=== PATIENT | male | born 1940 | race Caucasian/White ===

== ENCOUNTER → 2017-10-02 10:34 | Outpatient (CLI) | payer MEDICARE, SELFPAY ==
[2017-10-02 13:10] LABS: Absolute Lymphocyte Count 2.16 X10^3/ul (0.83-4.51); Absolute Neutrophil Count 5.1 X10^3/uL (2.0-7.7); Basophil# 0.04 X10^3/uL; Basophil% 0.5 % (0-1); Eosinophil# 0.17 X10^3/uL; Eosinophils% 2.1 % (0-5); Hematocrit 43.4 % (40-54); Hemoglobin 14.4 g/dl (13.0-16.5); Lymphocyte # 2.16 X10^3/ul (4.0); Lymphocyte % 26.2 % (19-41); Mean Corp Hgb Conc 33.2 g/gl (32-36); Mean Corpuscular Volume 87.3 fL (80-94); Mean Platelet Vol. 10.9 fl (6.2-12.0); Monocyte# 0.73 X10^3/uL; Monocyte% 8.9 % (0-10); Neutrophil # 5.07 X10^3/uL (2.7-7.7); Neutrophil % 61.6 % (47-70); Platelet Count 242 K/mm3 (150-450); RBC Distribution Width SD 48.5 fl (35.1-43.9); Red Blood Count 4.97 M/mm3 (4.6-6.2); White Blood Count 8.2 K/mm3 (4.4-11.0)
[2017-10-02 13:11] LABS: POSITIVE COUNT NO; POSITIVE DIFFERENTIAL NO; POSITIVE MORPHOLOGY NO
[2017-10-02 13:30] LABS: ALB/GLOB Ratio 0.8 RATIO (0.9-2.4); AST(SGOT) 22 U/L (15-37); Alanine Aminotransfer ALT/SGPT 22 U/L (16-61); Albumin, Serum 3.3 g/dL (3.2-5.0); Alkaline Phosphatase 87 U/L (45-117); Anion Gap 8 (5-15); BUN 14 mg/dL (7-18); BUN/Creat Ratio 15.4 RATIO (10-20); Calcium,Total 9.1 mg/dL (8.5-10.1); Chloride 105 mmol/L (98-107); Creatinine, Serum 0.91 mg/dL (0.70-1.30); EST Glomerular Filtration Rate 86 mL/min (>60); Est Glom Filt Rate - Afr Amer 104 mL/min (>60); Glucose 82 mg/dL (74-106); PSA,Total- Diagnostic 0.16 ng/mL (0.0-4.0); Potassium 4.4 mmol/L (3.5-5.1); Protein, Total 7.3 g/dL (6.4-8.2); Sodium Level 138 mmol/L (136-145); Thyroid Stim Hormone (TSH) 3.75 uIU/mL (0.358-3.74)
[2017-10-02 13:32] LABS: Vitamin D,25 Hydroxy 15.1 ng/mL (29.95-100.01)
[2017-10-03 15:57] LABS: Hep C Antibodies <0.1 s/co ratio (0.0-0.9)
== END ==
PROVIDERS: Family Provider Family Medicine Geriatric Medicine; PCP Family Medicine Geriatric Medicine; Visit Provider Urology
DX: E55.9 Vitamin D deficiency, unspecified (principal); R53.83 Other fatigue; Z85.46 Personal history of malignant neoplasm of prostate
CPT/HCPCS: 36415; 80053; 82306; 84153; 84443; 85025; 86803

== ENCOUNTER → 2017-11-19 14:10 | Outpatient (CLI) | payer MEDICARE, SELFPAY ==
[2017-11-19 17:27] LABS: Thyroid Stim Hormone (TSH) 1.78 uIU/mL (0.358-3.74)
== END ==
PROVIDERS: Family Provider Family Medicine Geriatric Medicine; PCP Family Medicine Geriatric Medicine; Visit Provider Family Medicine Geriatric Medicine
DX: E03.9 Hypothyroidism, unspecified (principal)
CPT/HCPCS: 36415; 84443

== ENCOUNTER → 2018-01-29 06:26 | Outpatient (CLI) | payer MEDICARE, SELFPAY | PROVIDERS: Family Provider Family Medicine Geriatric Medicine; PCP Family Medicine Geriatric Medicine; Visit Provider Family Medicine Geriatric Medicine | DX: M79.89 Other specified soft tissue disorders (principal) | CPT/HCPCS: 73218 ==

== ENCOUNTER → 2018-04-01 13:15 | Outpatient (CLI) | payer MEDICARE, SELFPAY ==
[2018-04-01 15:04] LABS: Absolute Lymphocyte Count 2.26 X10^3/ul (0.83-4.51); Absolute Neutrophil Count 3.1 X10^3/uL (2.0-7.7); Basophil# 0.02 X10^3/uL; Basophil% 0.3 % (0-1); Eosinophil# 0.15 X10^3/uL; Eosinophils% 2.4 % (0-5); Hematocrit 45.2 % (40-54); Hemoglobin 14.3 g/dl (13.0-16.5); Lymphocyte # 2.26 X10^3/ul (4.0); Lymphocyte % 36.2 % (19-41); Mean Corp Hgb Conc 31.6 g/gl (32-36); Mean Corpuscular Hgb 27.8 pg (27.0-32.0); Mean Corpuscular Volume 87.9 fL (80-94); Mean Platelet Vol. 10.5 fl (6.2-12.0); Monocyte# 0.68 X10^3/uL; Monocyte% 10.9 % (0-10); Neutrophil # 3.11 X10^3/uL (2.7-7.7); Neutrophil % 49.7 % (47-70); POSITIVE COUNT NO; POSITIVE DIFFERENTIAL NO; POSITIVE MORPHOLOGY NO; Platelet Count 231 K/mm3 (150-450); RBC Distribution Width CV 14.7 % (11.6-14.6); RBC Distribution Width SD 47.4 fl (35.1-43.9); Red Blood Count 5.14 M/mm3 (4.6-6.2); White Blood Count 6.3 K/mm3 (4.4-11.0)
[2018-04-01 15:19] LABS: Vitamin D,25 Hydroxy 45.6 ng/mL (29.95-100.01)
[2018-04-01 15:21] LABS: ALB/GLOB Ratio 0.8 RATIO (0.9-2.4); AST(SGOT) 18 U/L (15-37); Alanine Aminotransfer ALT/SGPT 20 U/L (16-61); Albumin, Serum 3.4 g/dL (3.2-5.0); Alkaline Phosphatase 77 U/L (45-117); Anion Gap 8 (5-15); BUN 14 mg/dL (7-18); BUN/Creat Ratio 14.4 RATIO (10-20); Calcium,Total 8.7 mg/dL (8.5-10.1); Chloride 105 mmol/L (98-107); Creatinine, Serum 0.97 mg/dL (0.70-1.30); EST Glomerular Filtration Rate 80 mL/min (>60); Est Glom Filt Rate - Afr Amer 97 mL/min (>60); Glucose 93 mg/dL (74-106); Potassium 4.4 mmol/L (3.5-5.1); Protein, Total 7.4 g/dL (6.4-8.2); Sodium Level 140 mmol/L (136-145); Thyroid Stim Hormone (TSH) 2.62 uIU/mL (0.358-3.74)
== END ==
PROVIDERS: Family Provider Family Medicine Geriatric Medicine; PCP Family Medicine Geriatric Medicine; Visit Provider Family Medicine Geriatric Medicine
DX: E55.9 Vitamin D deficiency, unspecified (principal); R53.83 Other fatigue
CPT/HCPCS: 36415; 80053; 82306; 84443; 85025

== ENCOUNTER → 2018-04-16 15:24 | Outpatient (CLI) | payer MEDICARE, SELFPAY ==
--- NOTE | 2018-04-16 15:32 | RAD_ITS ---
STUDY: X-RAY - LUMBAR SPINE REASON FOR EXAM: Male, 78 years old. Low back pain. TECHNIQUE: 5 view(s) of the lumbar spine were obtained. COMPARISON: None FINDINGS: There is an exaggerated lumbar lordosis. There is mild curvature of lumbar spine with convexity towards the right. There is a normal alignment of the vertebrae. There is multilevel endplate spondylosis of the lumbar vertebrae. There is multi-level degenerative disc disease with multi-level disc space narrowing. There is moderately severe degenerative arthropathy of the facet joints. There is mild anterolisthesis of L4-5. There is no demonstrated fracture. There is atherosclerotic calcification of the abdominal aorta without a demonstrated aneurysm. RAD/L/S Spine Min 4 Views IMPRESSION: 1. 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 2. Mild anterolisthesis at L4-5. Electronically Signed: Viri Toney MD at 7:26 EST , Service support ,
== END ==
PROVIDERS: Family Provider Family Medicine Geriatric Medicine; PCP Family Medicine Geriatric Medicine; Referring Provider Nurse Practitioner Family; Visit Provider Nurse Practitioner Family
DX: M54.9 Dorsalgia, unspecified (principal)
CPT/HCPCS: 72110

== ENCOUNTER → 2018-05-08 15:35 | Outpatient (CLI) | payer MEDICARE, SELFPAY ==
--- NOTE | 2018-05-08 15:45 | RAD_ITS ---
STUDY: X-RAY - LEFT HAND REASON FOR EXAM: Male, 78 years old. Swelling TECHNIQUE: 3 view(s) of the hand. COMPARISON: None. FINDINGS: Normal radiocarpal articulation. Normal distal radioulnar joint. Normal visualized carpal bones. Normal carpal articulations Degenerative changes at the carpometacarpal articulation of the thumb. Normal second through fifth carpometacarpal joints. Normal metacarpi. Normal metacarpophalangeal joint of the thumb. Normal interphalangeal joint of the thumb. Normal proximal and distal phalanges of the thumb. Normal metacarpophalangeal joints of the second through fifth fingers. Degenerative spurring at the distal interphalangeal joints of the second through fifth fingers. No acute bony injury of the phalanges of the second through fifth fingers. Diffuse soft tissue swelling of the hand and digits. RAD/Hand Min 3 Views IMPRESSION: Diffuse soft tissue swelling of the hand. Degenerative changes. Electronically Signed: Mayco Rodriguez DO at 8:34 EST Tel [phone], Service support ,
--- NOTE | 2018-05-08 15:50 | RAD_ITS ---
STUDY: X-RAY - LEFT WRIST REASON FOR EXAM: Male, 78 years old. Wrist pain and swelling TECHNIQUE: 3 view(s) of the wrist were obtained. COMPARISON: None. FINDINGS: Normal visualized distal radius and ulna. Normal radiocarpal articulation. Normal distal radioulnar articulation. Normal carpal bones. Normal carpal articulations. There is degenerative arthrosis of the carpometacarpal articulation of the thumb. Normal second through fifth carpometacarpal articulations. Normal visualized metacarpal bones. Diffuse dorsal soft tissue swelling RAD/Wrist min 3 Views IMPRESSION: Degenerative changes with swelling. No fracture Electronically Signed: Jagdeep Robles DO at 9:22 EST Tel , Service support ,
[2018-05-08 17:39] LABS: Absolute Lymphocyte Count 1.81 X10^3/ul (0.83-4.51); Absolute Neutrophil Count 5.5 X10^3/uL (2.0-7.7); Basophil# 0.02 X10^3/uL; Basophil% 0.2 % (0-1); Eosinophil# 0.12 X10^3/uL; Eosinophils% 1.4 % (0-5); Hematocrit 43.8 % (40-54); Hemoglobin 14.2 g/dl (13.0-16.5); Lymphocyte # 1.81 X10^3/ul (4.0); Lymphocyte % 21.2 % (19-41); Mean Corp Hgb Conc 32.4 g/gl (32-36); Mean Corpuscular Hgb 27.8 pg (27.0-32.0); Mean Corpuscular Volume 85.7 fL (80-94); Mean Platelet Vol. 10.5 fl (6.2-12.0); Monocyte# 1.11 X10^3/uL; Neutrophil # 5.46 X10^3/uL (2.7-7.7); Platelet Count 219 K/mm3 (150-450); RBC Distribution Width CV 14.8 % (11.6-14.6); RBC Distribution Width SD 46.3 fl (35.1-43.9); Red Blood Count 5.11 M/mm3 (4.6-6.2); White Blood Count 8.5 K/mm3 (4.4-11.0)
[2018-05-08 17:43] LABS: POSITIVE COUNT NO; POSITIVE DIFFERENTIAL NO; POSITIVE MORPHOLOGY NO
[2018-05-08 17:53] LABS: Erythrocyte Sedimentation Rate 24 mm/hr (0-20)
[2018-05-08 18:00] LABS: Anion Gap 9 (5-15); BUN 15 mg/dL (7-18); BUN/Creat Ratio 15.3 RATIO (10-20); Calcium,Total 8.8 mg/dL (8.5-10.1); Chloride 103 mmol/L (98-107); Creatinine, Serum 0.98 mg/dL (0.70-1.30); EST Glomerular Filtration Rate 79 mL/min (>60); Est Glom Filt Rate - Afr Amer 96 mL/min (>60); Glucose 81 mg/dL (74-106); Potassium 4.3 mmol/L (3.5-5.1); Sodium Level 138 mmol/L (136-145); Uric Acid 6.1 mg/dL (3.5-7.2)
--- OUTSIDE RECORDS SUMMARY | 2018-07-03 21:59 | XMS RPT_ITS ---
:1940 Author Organization OHIP Care Team Providers Name Role Phone CARLYLE MCCANN DO Admitting Unavailable CARLYLE MCCANN DO Attending Unavailable SANDY ROACH MD Referring Unavailable CARLYLE MCCANN DO Primary Care Unavailable SANDY ROACH MD Consulting Unavailable PROVIDER, UNKNOWN Consulting Unavailable PROVIDER, UNKNOWN Consulting Unavailable Pollo Hall Attending Unavailable Pollo Hall Referring Unavailable Aaron, Sandy Chi Primary Care Unavailable Aaron, Sandy Chi Attending Unavailable Aaron, Sandy Chi Primary Care Unavailable Aaron, Sandy Chi Attending Unavailable Aaron, Sandy Chi Primary Care Unavailable Aaron, Sandy Chi Attending Unavailable Aaron, Sandy Chi Referring Unavailable Aaron, Sandy Chi Primary Care Unavailable Aaron, Sandy Chi Attending Unavailable Aaron, Sandy Chi Primary Care Unavailable Ibeth Sr PRINCIPLE INDUSTRIAL HYGIENIST-C Attending Unavailable Ibeth Sr PRINCIPLE INDUSTRIAL HYGIENIST-C Referring Unavailable Aaron, Sandy Chi Primary Care Unavailable Aaron, Sandy Chi Attending Unavailable Aaron, Sandy Chi Primary Care Unavailable Aaron, Sandy Chi Referring Unavailable PROBLEMS PROBLEMS DATE TYPE CONDITION / CODE ATTENDING STATUS SOURCE 05/08/2018 Unknown R79.9 - Abnormal Aaron, Sandy Chi Active [place] [facility], Hospital unspecified / Repository R79.9(ICD-10) 04/16/2018 Unknown M54.9 - Prebish, Ibeth Active [facility], PRINCIPLE INDUSTRIAL HYGIENIST-C Community unspecified / Hospital M54.9(ICD-10) Repository 10/02/2017 Unknown Z85.46 - Personal IsabelPollo 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 Swelling TECHNIQUE: 3 view(s) of the hand. COMPARISON: None. FINDINGS: Normal radiocarpal articulation. Normal distal radioulnar joint. Normal visualized carpal bones. Normal carpal articulations Degenerative changes at the carpometacarpal articulation of the thumb. Normal second through fifth carpometacarpal joints. Normal metacarpi. Normal metacarpophalangeal joint of the thumb. Normal interphalangeal joint of the thumb. Normal proximal and distal phalanges of the thumb. Normal metacarpophalangeal joints of the second through fifth fingers. Degenerative spurring at the distal interphalangeal joints of the second through fifth fingers. No acute bony injury of the phalanges of the second through fifth fingers. Diffuse soft tissue swelling of the hand and digits. RAD/Hand Min 3 Views IMPRESSION: Diffuse soft tissue swelling of the hand. Degenerative changes. Electronically Signed: Mayco Rodriguez DO at 8:34 EST Tel [phone], Service support , CC: Sandy Roach MD Front Desk Supervisor: Signed WRIST MIN 3 VIEWS Observed: 05/08/2018 Status: F Source: [place] 3:45 PM [facility] REPOSITORY [facility] Imaging Services [address] [place] [address] Wrist min 3 Views MR#: [id number] Acct: [id number] Name: TYLER PELAEZ Rep #: [id number] : 1940 [facility] From: Jagdeep Robles DO PCP: Sandy Roach MD, Chi Status: REG CLI Study: Wrist min 3 Views Date of Exam: 05/08/18 Exam# [id number] Ordering Dr: Sandy Roach MD STUDY: X-RAY - LEFT WRIST REASON FOR EXAM: Male, 78 years old. Wrist pain and swelling TECHNIQUE: 3 view(s) of the wrist were obtained. COMPARISON: None. FINDINGS: Normal visualized distal radius and ulna. Normal radiocarpal articulation. Normal distal radioulnar articulation. Normal carpal bones. Normal carpal articulations. There is degenerative arthrosis of the carpometacarpal articulation of the thumb. Normal second through fifth carpometacarpal articulations. Normal visualized metacarpal bones. Diffuse dorsal soft tissue swelling RAD/Wrist min 3 Views IMPRESSION: Degenerative changes with swelling. No fracture Electronically Signed: Jagdeep Robles DO at 9:22 EST Tel , Service support , CC: Sandy Roach MD Front Desk Supervisor: Signed CBC W/DIFF, AUTOMATED Collected: 05/08/2018 Status: F Source: [place] 3:36 PM [facility] REPOSITORY TYPE CODE TESTS RESULT OUT OF RANGE REFERENCE UNITS LAB L100.1000 4.4-11.0 K/mm3 Normal WBC 8.5 LAB L100.1200 4.6-6.2 M/mm3 Normal RBC 5.11 LAB L100.1300 13.0-16.5 g/dl Normal HGB 14.2 LAB L100.1400 40-54 % Normal HCT 43.8 LAB L100.1500 80-94 fL Normal MCV 85.7 LAB L100.1600 27.0-32.0 pg Normal MCH 27.8 LAB L100.1700 32-36 g/gl Normal MCHC 32.4 LAB L100.1810 11.6-14.6 % High RDW CV 14.8 LAB L100.1820 35.1-43.9 fl High RDW SD 46.3 LAB L100.1900 150-450 K/mm3 Normal PLT 219 LAB L100.2000 6.2-12.0 fl Normal MPV 10.5 LAB L100.2100 47-70 % Normal NEUT% 64.0 LAB L100.2200 19-41 % Normal LY% 21.2 LAB L100.2300 0-10 % High MONO% 13.0 LAB L100.2400 0-5 % Normal EO% 1.4 LAB L100.2500 0-1 % Normal BASO% 0.2 LAB L100.2550 0.0-0.9 % Normal IM GRAN % 0.200 Result Comment: IG% - Immature Granulocytes (promyelocytes, myelocytes and metamyelocytes) > 1% indicates that a LEFT SHIFT is Present. LAB L100.2620 2.0-7.7 X10 3/uL Normal Absolute Neut 5.5 LAB L100.2720 0.83-4.51 X10 3/ul Normal Absolute Lymph 1.81 Performed By: #### L100.0100, L101.9900 #### [facility] [address] [place], [address] ERYTHROCYTE SED RATE Collected: 05/08/2018 Status: F Source: [place] 3:36 PM [facility] REPOSITORY TYPE CODE TESTS RESULT OUT OF RANGE REFERENCE UNITS LAB L102.0000 0-20 mm/hr High SED RATE 24 Performed By: #### L100.0100, L101.9900 #### [facility] [address] [place], [address] BASIC METABOLIC Collected: 05/08/2018 Status: F Source: [place] PROFILE (BMP) 3:36 PM [facility] REPOSITORY TYPE CODE TESTS RESULT OUT OF RANGE REFERENCE UNITS LAB L501.0100 74-106 mg/dL Normal GLU 81 Result Comment: Please note revised GLUCOSE reference range effective 2017. LAB L501.1000 7-18 mg/dL Normal BUN 15 LAB L501.1100 0.70-1.30 mg/dL Normal CREAT,SERUM 0.98 Result Comment: The validity of the calculated GFR AND GFRAA in patients over 70 years has not been determined. Clinical correlation is essential. LAB L501.1110 >60 mL/min Normal EST GFR 79 Result Comment: Non- GFR Calc LAB L501.1115 >60 mL/min Normal EST GFR - AA 96 Result Comment: GFR Calc LAB L501.1300 10-20 RATIO Normal BUN/CRE 15.3 LAB L501.2200 8.5-10.1 mg/dL CA Normal 8.8 LAB L501.5300 136-145 mmol/L NA Normal 138 LAB L501.5600 3.5-5.1 mmol/L K Normal 4.3 LAB L501.5900 98-107 mmol/L CL Normal 103 LAB L501.6100 21.0-32.0 mmol/L Normal CO2 26.0 LAB L501.6200 5-15 Normal GAP 9 Performed By: #### L500.2500, L501.1400, L501.6710 #### [facility] [address] [place], [address] URIC ACID Collected: 05/08/2018 Status: F Source: [place] 3:36 PM [facility] REPOSITORY TYPE CODE TESTS RESULT OUT OF RANGE REFERENCE UNITS LAB L501.1400 3.5-7.2 mg/dL Normal URIC 6.1 Result Comment: The drugs N-Acetylcysteine and Metamizole may falsely depress this assay. Performed By: #### L500.2500, L501.1400, L501.6710 #### [facility] [address] [facility] [place], [address] CRP Collected: 05/08/2018 Status: F Source: [place] 3:36 PM [facility] REPOSITORY TYPE CODE TESTS RESULT OUT OF RANGE REFERENCE UNITS LAB L501.6710 0.0-3.0 mg/L High 81.50 C-REACTIVE PROT Result Comment: C-Reactive Protein (CRP) provides useful information for the diagnosis, therapy and monitoring of inflammatory processes and associated diseases. For the evaluation of Relative Risk for Cardiovascular Disease, a High Sensitivity CRP (HSCRP) should be ordered. Performed By: #### L500.2500, L501.1400, L501.6710 #### [facility] [address] [facility] [place], [address] L/S SPINE MIN 4 Observed: 04/16/2018 Status: F Source: [place] VIEWS 3:30 PM [facility] REPOSITORY [facility] Imaging Services [address] [place] [address] L/S Spine Min 4 Views MR#: [id number] Acct: [id number] Name: TYLER PELAEZ Rep #: [id number] : 1940 M 78 From: Viri Toney MD PCP: Aaron BARNETT,Sandy Chi Status: REG CLI Study: L/S Spine Min 4 Views Date of Exam: 04/16/18 Exam# [id number] Ordering Dr: Ibeth Sr STUDY: X-RAY - LUMBAR SPINE REASON FOR EXAM: Male, 78 years old. Low back pain. TECHNIQUE: 5 view(s) of the lumbar spine were obtained. COMPARISON: None FINDINGS: There is an exaggerated lumbar lordosis. There is mild curvature of lumbar spine with convexity towards the right. There is a normal alignment of the vertebrae. There is multilevel endplate spondylosis of the lumbar vertebrae. There is multi-level degenerative disc disease with multi-level disc space narrowing. There is moderately severe degenerative arthropathy of the facet joints. There is mild anterolisthesis of L4-5. There is no demonstrated fracture. There is atherosclerotic calcification of the abdominal aorta without a demonstrated aneurysm. RAD/L/S Spine Min 4 Views IMPRESSION: 1. 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 2. Mild anterolisthesis at L4-5. Electronically Signed: Viri Toney MD at 7:26 EST , Service support , CC: Ibeth Sr; Sandy Roach MD Front Desk Supervisor: Signed CBC W/DIFF, AUTOMATED Collected: 04/01/2018 Status: F Source: [place] 1:25 PM [facility] REPOSITORY TYPE CODE TESTS RESULT OUT OF RANGE REFERENCE UNITS LAB L100.1000 4.4-11.0 K/mm3 Normal WBC 6.3 LAB L100.1200 4.6-6.2 M/mm3 Normal RBC 5.14 LAB L100.1300 13.0-16.5 g/dl Normal HGB 14.3 LAB L100.1400 40-54 % Normal HCT 45.2 LAB L100.1500 80-94 fL Normal MCV 87.9 LAB L100.1600 27.0-32.0 pg Normal MCH 27.8 LAB L100.1700 32-36 g/gl Low MCHC 31.6 LAB L100.1810 11.6-14.6 % High RDW CV 14.7 LAB L100.1820 35.1-43.9 fl High RDW SD 47.4 LAB L100.1900 150-450 K/mm3 Normal PLT 231 LAB L100.2000 6.2-12.0 fl Normal MPV 10.5 LAB L100.2100 47-70 % Normal NEUT% 49.7 LAB L100.2200 19-41 % Normal LY% 36.2 LAB L100.2300 0-10 % High MONO% 10.9 LAB L100.2400 0-5 % Normal EO% 2.4 LAB L100.2500 0-1 % Normal BASO% 0.3 LAB L100.2550 0.0-0.9 % Normal IM GRAN % 0.500 Result Comment: IG% - Immature Granulocytes (promyelocytes, myelocytes and metamyelocytes) > 1% indicates that a LEFT SHIFT is Present. LAB L100.2620 2.0-7.7 X10 3/uL Normal Absolute Neut 3.1 LAB L100.2720 0.83-4.51 X10 3/ul Normal Absolute Lymph 2.26 Performed By: #### L100.0100 #### [facility] [address] [facility] [place], [place], [address] VITAMIN D,25 HYDROXY Collected: 04/01/2018 Status: F Source: [place] 1:25 PM [facility] REPOSITORY TYPE CODE TESTS RESULT OUT OF RANGE REFERENCE UNITS LAB L506.1000 29.95-100.01 ng/mL Normal Vitamin D 45.6 25-OH Result Comment: Vitamin D 25(OH) Status Range Deficiency <20 ng/mL (50nmol/L) Insuffciency 20 - 30 ng/mL (50 - 75 nmol/L) Sufficiency 30 - 100 ng/mL (75 - 250 nmol/L) Toxicity >100 ng/mL (>250 nmol/L) Performed By: #### L506.1000 #### [facility] [address] [facility] [place], [address] COMPREHENSIVE METABOLIC Collected: 04/01/2018 Status: F Source: [facility] 1:25 PM [facility] REPOSITORY TYPE CODE TESTS RESULT OUT OF RANGE REFERENCE UNITS LAB L501.0100 74-106 mg/dL Normal GLU 93 Result Comment: Please note revised GLUCOSE reference range effective 2017. LAB L501.1000 7-18 mg/dL Normal BUN 14 LAB L501.1100 0.70-1.30 mg/dL Normal CREAT,SERUM 0.97 Result Comment: The validity of the calculated GFR AND GFRAA in patients over 70 years has not been determined. Clinical correlation is essential. LAB L501.1110 >60 mL/min Normal EST GFR 80 Result Comment: Non- GFR Calc LAB L501.1115 >60 mL/min Normal EST GFR - AA 97 Result Comment: GFR Calc LAB L501.1300 10-20 RATIO Normal BUN/CRE 14.4 LAB L501.1500 6.4-8.2 g/dL T Normal PROT 7.4 LAB L501.1800 3.2-5.0 g/dL Normal ALB 3.4 LAB L501.1950 2.2-4.2 g/dL Normal GLOB 4.0 LAB L501.2000 0.9-2.4 RATIO Low A/G 0.8 LAB L501.2200 8.5-10.1 mg/dL CA Normal 8.7 LAB L501.4100 15-37 U/L Normal AST 18 LAB L501.4305 45-117 U/L Normal ALK P 77 LAB L501.4405 16-61 U/L Normal ALT 20 LAB L501.4600 0.20-1.00 mg/dL T Normal BILI 0.40 LAB L501.5300 136-145 mmol/L NA Normal 140 LAB L501.5600 3.5-5.1 mmol/L K Normal 4.4 LAB L501.5900 98-107 mmol/L CL Normal 105 LAB L501.6100 21.0-32.0 mmol/L Normal CO2 27.0 LAB L501.6200 5-15 Normal GAP 8 Performed By: #### L500.4050, L501.9520 #### [facility] [address] [facility] [place], [place], [address] THYROID STIM HORMONE Collected: 04/01/2018 Status: F Source: [place] (TSH) 1:25 PM [facility] REPOSITORY TYPE CODE TESTS RESULT OUT OF RANGE REFERENCE UNITS LAB L501.9520 0.358-3.74 uIU/mL Normal TSH 2.62 Performed By: #### L500.4050, L501.9520 #### [facility] [address] [place], [place], [address] UPPER EXT/NO JT/ WO Observed: 01/29/2018 Status: F Source: [place] 6:41 AM [facility] REPOSITORY [facility] Imaging Services [address] [place] [address] Upper Ext/No Jt/ wo MR#: [id number] Acct: [id number] Name: TYLER PELAEZ Rep #: [id number] : 1940 M 77 From: Elliot Jo MD PCP: Aaron BARNETT,Sandy Castillo Status: REG CLI Study: Upper Ext/No Jt/ wo Date of Exam: 01/29/18 Exam# [id number] Ordering Dr: Sandy Roach MD STUDY: MRI PROXIMAL RIGHT HAND REASON FOR EXAM: Swelling over metacarpal area for 5 days, pain at the third and fourth metacarpophalangeal joints, no specific injury. TECHNIQUE: Standardized fat and water weighted pulse sequences were obtained in all 3 orthogonal planes. COMPARISON: None. FINDINGS: Normal visualized distal radius and ulna. There is an effusion of the distal radioulnar joint (inversion recovery axial images 1- 3). There is a very small central perforation of the radial aspect of the triangular fibrocartilage (inversion recovery coronal image 16). There are small cysts in the lunate, proximal hamate, distal scaphoid and trapezium (inversion recovery coronal images 12-15). There is no bone edema of the carpal bones. There is chondral thinning of the triscaphe articulation (T2 sagittal images 20-22). There is mild chondral thinning of the lunate-capitate articulation (T2 sagittal image 16). There are effusions of the radiocarpal and midcarpal compartments of the wrist (T2 sagittal images 16-21). Normal pisotriquetral articulation. There is a tear of the scapholunate ligament with widening of the scapholunate interval (inversion recovery coronal image 16). Normal extensor tendons. Normal flexor tendons. Normal carpal tunnel with a normal median nerve. There is arthrosis of the carpometacarpal articulation of the thumb with chondral thinning (T2 sagittal image 26) and a small subchondral cyst of the first metacarpal base (inversion recovery coronal image 13). Normal second through fifth carpometacarpal articulations. There is no bone edema or osseous destruction of the metacarpals. Normal first through fifth metacarpophalangeal joints. Normal visualized proximal phalanges. There is diffuse edema of the subcutis adipose space without focal fluid collection to suggest abscess. There is a metallic foreign body at the palmar aspect of the proximal first metacarpal (T1 coronal images 3-5). There is atrophy with partial fat replacement of the thenar musculature (T1 coronal images 6-8). There is mild atrophy of the hypothenar musculature with partial fat replacement (T1 coronal images 9-11). MRI/Upper Ext/No Jt/ wo IMPRESSION: Diffuse edema in the subcutis adipose space without demonstrated soft tissue abscess or osteomyelitis. Scapholunate ligament tear. Arthrosis of the triscaphe articulation, lunate-capitate articulation and first carpometacarpal joint. Atrophy of the thenar and hypothenar musculature. Very small central perforation of the radial aspect of the triangular fibrocartilage. Effusions of the distal radioulnar joint and radiocarpal and midcarpal compartments of the wrist. Metallic foreign body at the palmar aspect of the proximal first metacarpal. Electronically Signed: Elliot Jo MD at 10:19 EDT Tel , Service support , CC: Sandy Roach MD Front Desk Supervisor: Signed EMERGENCY REPORT Observed: 01/28/2018 Status: F [facility] EMERGENCY ROOM REPORT NAME ACCOUNT SEX AGE ADMIT DISCHARGE PT MED. RECORD# NUMBER DATE DATE TYPE PLASTER, [id number] M 77 01/24/18 01/25/18 3 TYLER [place] [id number] ROOM: ER DATE OF : 1940 DICTATING PHYSICIAN: Carlyle Mccann CHIEF COMPLAINT: Pain, swelling and redness over the dorsum of the right hand and right wrist. HISTORY OF PRESENT ILLNESS: Patient states that earlier this morning after he woke up he noticed he had some redness and swelling at the dorsum of his right wrist. He does not recall any injury. He does not recall any bug bites. He has no idea where this came from. It has gotten increasing symptoms throughout the day and he was told by several people that he should go the hospital and have this checked out. Patient states that movement and touching it make it worse. Holding it still and not using it make it better. He has not tried any medications at home. It was noted that he does have a history of blood clots and is on Coumadin. PAST MEDICAL HISTORY: History of cancer. History of hypertension. History of kidney stones. History of blood clots. He has had orthopedic surgery and fistula surgery in the past. ALLERGIES: Patient is allergic to Cipro and IV contrast dye. SOCIAL HISTORY: Patient lives with his family and is . He denies alcohol or tobacco abuse. Immunizations are up to date. REVIEW OF SYSTEMS: Ten systems were reviewed and are documented on the paper chart. PHYSICAL EXAMINATION: Patient is alert and oriented to person, place and time. Vital signs do show a fever of 100.9, pulse of 78, respirations 16, blood pressure slightly elevated at 174/99 and this did normalize throughout his stay in the emergency room, O2 saturation is 96% on room air. Head normal. Ears normal. Eyes normal. Neck is soft and supple, negative nodes. Heart is regular rate and rhythm without murmurs. Lungs are clear to auscultation. Abdomen is slightly protuberant but benign. Neurological exam is grossly intact. Examination of the right upper extremity shows a 3x5 area of erythema and edema. There are no nodes. There is no streaking. There is no discharge. There is no break in the skin. There are no local abrasions or any other sign of source of this infection. It could have occurred spontaneously or possibly from the patient receiving a bug bite or possibly even from cutting his nails. All of this was told to him and his family as a possible cause. Page 1 of 2 TYLER PELAEZ Emergency Room Report DIAGNOSTIC DATA: Laboratory studies were obtained. CBC is normal with a white count of 10.2. Electrolytes are normal other than a slightly elevated glucose of 127. Patient reports that his last INR was 2.5 at the family doctor that he sees. C-reactive protein is slightly elevated at 2.7. X-ray of the right hand and wrist shows degenerative changes and old foreign body in the thenar eminence of the thumb but no acute abnormality. EMERGENCY DEPARTMENT COURSE AND TREATMENT: Augmentin 1000 mg prior to discharge then 875 mg q12 hours for 10 days. [place] 1 prior to discharge and 1 to go home, then a prescription for 16 was written. OARRS was checked and is negative. DIAGNOSIS: Cellulitis dorsum of the right hand and wrist. PLAN/DISPOSITION: Do not use the extremity. Alternate ice and warmth, whichever gives the most comfort. Call doctor Saturday morning and have a followup Saturday or Saturday. Return to the emergency room if any other abnormalities should present. This would include increasing symptoms, increasing pain, or fever above 102.0. With this all of the patient's and his 's and son's questions were answered in detail and he was discharged to home in stable and improved condition. Dictated By: Carlyle Mccann DO 01/25/18 01:16 JOB #: [id number] Transcribed By: jerri 01/25/18 16:44 Electronically signed by: CARLYLE MCCANN DO 01/28/18 22:29 Page 2 of 2 JASONTYLER BAILEY [place] Emergency Room Report WRIST COMPLETE RT Observed: 01/25/2018 Status: F [facility] [place] [address] Patient: TYLER PELAEZ. Phone#: : 1940 Age: 77 Gender: M Pt. Type: ER Account: [id number] Location: 052 Ordering: CARLYLE MCCANN Exam Date: 01/24/2018/23:50 Family Phys: SANDY ROACH Charge Code: [id number] Physician: [place] Order #: [id number] DLP Dose#: PROCEDURE: X-RAY WRIST RT COMPLETE MIN 3 VIEWS COMPARISON: None. INDICATIONS: Swelling of hand FINDINGS: BONES: No fracture or dislocation. There is widening of the knee scapholunate articulation, measuring 0.6 cm, this is consistent with scapholunate dissociation. There is narrowing of the luminal hamate interval. SOFT TISSUES: There is a small linear radiopaque foreign body in the soft tissues anterior to the first and second metacarpals. EFFUSION: None visible. OTHER: Negative. CONCLUSION: 1. No acute osseous abnormality. 2. Scapholunate dissociation. 3. Foreign body in the soft tissues anterior to the first and second metacarpals. Dictated by: Vanessa Padgett MD on 01/26/2018 at 9:45 Approved by: Vanessa Padgett MD on 01/26/2018 at 9:45 HAND RT MIN 3 VIEWS Observed: 01/25/2018 Status: F Source: [facility] [place] 12:00 AM [place] [address] Patient: TYLER PELAEZ Phone#: : 1940 Age: 77 Gender: M Pt. Type: ER Account: [id number] Location: [facility] Ordering: CARLYLE MCCANN Exam Date: 01/24/2018/23:40 Family Phys: SANDY ROACH Charge Code: [id number] Physician: [place] Order #: [id number] DLP Dose#: PROCEDURE: X-RAY HAND RT COMPLETE MIN 3 VIEWS COMPARISON: None. INDICATIONS: Swollen hand FINDINGS: BONES: No fracture or dislocation. There is joint space loss at the second through fifth DIPs articulations. Widening of the scapholunate space, please refer to wrist radiograph performed same day. SOFT TISSUES: Radiopaque foreign body in the soft tissues anterior to the first and second metacarpals. EFFUSION: None visible. OTHER: Negative. CONCLUSION: 1. No acute osseous abnormality. 2. Osteoarthritic changes 3. Foreign body in the soft tissues between the first and second metacarpals. Dictated by: Vanessa Padgett MD on 01/26/2018 at 9:48 Approved by: Vanessa Padgett MD on 01/26/2018 at 9:48 Observed: 01/24/2018 Status: F Source: [facility] [place] CULTURE BLOOD 11:59 PM [place] REPOSITORY CULTURE BLOOD CULTURE BLOOD SET: 1 of 2 24HOUR REPORT NO GROWTH 48HOUR REPORT NO GROWTH 72HOUR REPORT NO GROWTH M I C R O B I O L O G Y R E P O R T FINAL Antimicrobial Susceptibility and Organism Identification Report Specimen Number : [id number] Requested : 01/24/18 Specimen Source : BLOOD Collected : 01/24/18 23:59 [place] [facility] : Emergency Room Received : 01/24/18 23:59 Requesting Physician : wilfredo Patient/Specimen Tests and Comments Specimen Comments FINAL REPORT: No Growth at 5 Days Tech : Source : BLOOD ID # : [id number] FINAL Report Date : / / : Collected : 01/24/18 23:59 01/30/18.37.BKO. 01/30/18.936.BKO.COMPLETE Performed By: #### [id number] #### [facility],[address] [place] [address] CBC Collected: 01/24/2018 Status: F Source: [place] [place] 11:43 PM [place] REPOSITORY TYPE CODE TESTS RESULT OUT OF RANGE REFERENCE UNITS LAB CBC(LOINC) CBC Result Comment: CBC-COMPLETE BLOOD COUNT LAB WBC(LOINC) 4.5 - 10.8 x 10EE3/UL WBC 10.0 LAB RBC(LOINC) 4.50 - x 10EE6/UL 6.00 RBC 5.11 LAB HEMOGLOBIN(LOINC) 13.0 - g/dl 17.5 HEMOGLOBIN 14.7 LAB HEMATOCRIT(LOINC) 40.0 - % 52.0 HEMATOCRIT 43.3 LAB MCV(LOINC) 81 - 98 fl MCV 85 LAB MCH(LOINC) 27 - 33 pg MCH 29 LAB MCHC(LOINC) 32 - 36 X10 3 MCHC 34 LAB RDW/CV(LOINC) 12.0 - % 15.6 RDW/CV 15.2 LAB PLATELET(LOINC) 150 - 450 x10EE3/UL PLATELET 197 LAB MPV(LOINC) 6.4 - 10.5 fl MPV 8.5 Result Comment: AUTOMATED DIFFERENTIAL LAB NEUT %(LOINC) 46.0 - 76.0 % NEUT % High 85.2 LAB LYMPH %(LOINC) 20.0 - 45.0 % Low LYMPH % 7.8 LAB MONOS %(LOINC) 0.0 - 10.0 % MONOS % 6.0 LAB EO %(LOINC) 0.0 - 7.0 % EO % 0.3 LAB BASO %(LOINC) 0.0 - 2.0 % BASO % 0.7 LAB Lymph #(LOINC) 0.80 - 2.80 x10EE3/U L Lymph # 0.80 LAB Neut #(LOINC) 1.50 - 7.10 x10EE3/U L Neut # High 8.50 LAB [place] #(LOINC) 0.20 - 1.00 x10EE3/U L [place] # 0.60 LAB EO #(LOINC) 0.00 - 0.50 x10EE3/U L EO # 0.00 LAB Baso #(LOINC) 0.00 - 0.10 x10EE3/U L Baso # 0.10 LAB MANUAL DIFF(LOINC) MANUAL DIFF N/A LAB MORPHOLOGY(INC ) MORPHOLOGY N/A Result Comment: {CD] Performed By: #### [id number] #### [facility],[address] [place] [address] CMP WITH EGFR Collected: 01/24/2018 Status: F Source: [facility] 11:43 PM [place] REPOSITORY TYPE CODE TESTS RESULT OUT OF RANGE REFERENCE UNITS LAB CMP with eGFR(INC) CMP with eGFR Result Comment: COMPREHENSIVE METABOLIC PANEL LAB SODIUM(LOINC) 136 - 145 mmol/l SODIUM Low 134 LAB POTASSIUM(LOINC) 3.5 - 5.1 mmol/L POTASSIUM 4.2 LAB CHLORIDE(LOINC) 98 - 107 mmol/L CHLORIDE 104 LAB CO2(LOINC) 21.0 - mmol/L 31.0 CO2 22.8 LAB GLUCOSE(LOINC) 74 - 106 mg/dl GLUCOSE High 127 LAB BUN(LOINC) 6 - 20 mg/dl BUN 14 LAB CREATININE(LOINC) 0.7 - 1.3 mg/dl CREATININE 0.9 LAB AST/SGOT(LOINC) 13 - 39 U/L AST/SGOT 17 LAB ALK PHOS(LOINC) 38 - 126 U/L ALK PHOS 57 LAB CALCIUM(LOINC) 8.6 - mg/dl 10.2 CALCIUM 9.0 LAB TOTAL 6.4 - 8.3 g/dl PROTEIN(LOINC) TOTAL PROTEIN 7.0 LAB ALBUMIN(LOINC) 3.4 - 4.8 g/dL ALBUMIN 4.1 LAB GLOBULIN(LOINC) 1.5 - 3.8 G/DL GLOBULIN 2.9 LAB A/G RATIO(LOINC) 0.9 - 1.6 A/G RATIO 1.4 LAB TOTAL BILI(LOINC) 0.0 - 1.5 mg/dl TOTAL BILI 0.5 LAB B/C RATIO(LOINC) 0 - 30 ratio B/C RATIO 16 LAB ALT/SGPT(LOINC) 10 - 40 U/L ALT/SGPT 13 LAB ANION GAP(LOINC) 10 - 20 mmol/L ANION GAP 11 LAB AGE(LOINC) years AGE 77 LAB eGFR(LOINC) 60 - 999 ML/MINUTE eGFR >60 LAB eGFR(AA)(LOINC) 60 - 999 ML/MINUTE eGFR(AA) >60 Result Comment: ACCORDING TO THE NATIONAL KIDNEY DISEASE EDUCATION PROGRAM(NKDE), A NORMAL eGFR IS A VALUE GREATER THAN OR EQUAL TO 60 ML/MIN/1.73 SQ METERS. CHRONIC KIDNEY DISEASE: <60mL/MIN/1.73 SQ METERS KIDNEY FAILURE: <15mL/MIN/1.73 SQ METERS THIS TEST SHOULD ONLY BE USED FOR PATIENTS 18 YEARS OF AGE AND OLDER. Performed By: #### [id number] #### [place] [id number] C-REACTIVE PROTEIN Collected: 01/24/2018 Status: F Source: [facility] 11:43 [facility] REPOSITORY TYPE CODE TESTS RESULT OUT OF RANGE REFERENCE UNITS LAB CRP(LOINC) 0.00 - 1.00 mg/dl High CRP 2.70 Performed By: #### [id number] #### [place] [address] LACTATE Collected: 01/24/2018 Status: F Source: [facility] 11:43 [facility] REPOSITORY TYPE CODE TESTS RESULT OUT OF REFERENCE UNITS RANGE LAB LACTATE(SALIMA 4.5 - 18.0 mg/dL NC) LACTATE 11.8 Performed By: #### [id number] #### [place] [id number] Observed: 01/24/2018 Status: F Source: [facility] CULTURE BLOOD 11:43 [facility] REPOSITORY CULTURE BLOOD CULTURE BLOOD SET: 2 of 2 24HOUR REPORT NO GROWTH 48HOUR REPORT NO GROWTH 72HOUR REPORT NO GROWTH M I C R O B I O L O G Y R E P O R T FINAL Antimicrobial Susceptibility and Organism Identification Report Specimen Number : [id number] Requested : 01/24/18 Specimen Source : BLOOD Collected : 01/24/18 23:43 [place] of Isolation : Emergency Room Received : 01/24/18 23:43 Requesting Physician : wilfredo Patient/Specimen Tests and Comments Specimen Comments FINAL REPORT: No Growth at 5 Days Tech : Source : BLOOD ID # : [id number] FINAL Report Date : / / : Collected : 01/24/18 23:43 01/30/18.0911.BKPatrica. 01/30/[email or web address].COMPLETE Performed By: #### [id number] #### [facility],[address] [address] THYROID STIM HORMONE Collected: 11/19/2017 Status: F Source: [place] (TSH) 2:12 PM [facility] REPOSITORY TYPE CODE TESTS RESULT OUT OF RANGE REFERENCE UNITS LAB L501.9520 0.358-3.74 uIU/mL Normal TSH 1.78 Performed By: #### L501.9520 #### [facility] [address] [place], [place], [address] CBC W/DIFF, AUTOMATED Collected: 10/02/2017 Status: F Source: [place] 10:52 AM [facility] REPOSITORY Order Comment: DR HALL ORDERD PSAD ONLY TYPE CODE TESTS RESULT OUT OF RANGE REFERENCE UNITS LAB L100.1000 4.4-11.0 K/mm3 Normal WBC 8.2 LAB L100.1200 4.6-6.2 M/mm3 Normal RBC 4.97 LAB L100.1300 13.0-16.5 g/dl Normal HGB 14.4 LAB L100.1400 40-54 % Normal HCT 43.4 LAB L100.1500 80-94 fL Normal MCV 87.3 LAB L100.1600 27.0-32.0 pg Normal MCH 29.0 LAB L100.1700 32-36 g/gl Normal MCHC 33.2 LAB L100.1810 11.6-14.6 % High RDW CV 15.0 LAB L100.1820 35.1-43.9 fl High RDW SD 48.5 LAB L100.1900 150-450 K/mm3 Normal PLT 242 LAB L100.2000 6.2-12.0 fl Normal MPV 10.9 LAB L100.2100 47-70 % Normal NEUT% 61.6 LAB L100.2200 19-41 % Normal LY% 26.2 LAB L100.2300 0-10 % Normal MONO% 8.9 LAB L100.2400 0-5 % Normal EO% 2.1 LAB L100.2500 0-1 % Normal BASO% 0.5 LAB L100.2550 0.0-0.9 % Normal IM GRAN % 0.700 Result Comment: IG% - Immature Granulocytes (promyelocytes, myelocytes and metamyelocytes) > 1% indicates that a LEFT SHIFT is Present. LAB L100.2620 2.0-7.7 X10 3/uL Normal Absolute Neut 5.1 LAB L100.2720 0.83-4.51 X10 3/ul Normal Absolute Lymph 2.16 Performed By: #### L100.0100 #### [facility] [place], [address] COMPREHENSIVE METABOLIC Collected: 10/02/2017 Status: F Source: [place] [facility] 10:52 AM [facility] REPOSITORY Order Comment: DR HALL ORDERD PSAD ONLY TYPE CODE TESTS RESULT OUT OF RANGE REFERENCE UNITS LAB L501.0100 74-106 mg/dL Normal GLU 82 Result Comment: Please note revised GLUCOSE reference range effective 2017. LAB L501.1000 7-18 mg/dL Normal BUN 14 LAB L501.1100 0.70-1.30 mg/dL Normal CREAT,SERUM 0.91 Result Comment: The validity of the calculated GFR AND GFRAA in patients over 70 years has not been determined. Clinical correlation is essential. LAB L501.1110 >60 mL/min Normal EST GFR 86 Result Comment: Non- GFR Calc LAB L501.1115 >60 mL/min Normal EST GFR - AA 104 Result Comment: GFR Calc LAB L501.1300 10-20 RATIO Normal BUN/CRE 15.4 LAB L501.1500 6.4-8.2 g/dL T Normal PROT 7.3 LAB L501.1800 3.2-5.0 g/dL Normal ALB 3.3 LAB L501.1950 2.2-4.2 g/dL Normal GLOB 4.0 LAB L501.2000 0.9-2.4 RATIO Low A/G 0.8 LAB L501.2200 8.5-10.1 mg/dL CA Normal 9.1 LAB L501.4100 15-37 U/L Normal AST 22 LAB L501.4305 45-117 U/L Normal ALK P 87 LAB L501.4405 16-61 U/L Normal ALT 22 LAB L501.4600 0.20-1.00 mg/dL T Normal BILI 0.50 LAB L501.5300 136-145 mmol/L NA Normal 138 LAB L501.5600 3.5-5.1 mmol/L K Normal 4.4 LAB L501.5900 98-107 mmol/L CL Normal 105 LAB L501.6100 21.0-32.0 mmol/L Normal CO2 25.0 LAB L501.6200 5-15 Normal GAP 8 Performed By: #### L500.4050, L501.9520, L501.9940 #### [facility] [address] [place], [address] THYROID STIM HORMONE Collected: 10/02/2017 Status: F Source: [place] (TSH) 10:52 AM [facility] REPOSITORY Order Comment: DR ISABEL LUEVANO PSAD ONLY TYPE CODE TESTS RESULT OUT OF RANGE REFERENCE UNITS LAB L501.9520 0.358-3.74 uIU/mL High TSH 3.75 Performed By: #### L500.4050, L501.9520, L501.9940 #### [facility] [address] [place], [place], [address] PSA,TOTAL- DIAGNOSTIC Collected: 10/02/2017 Status: F Source: [place] 10:52 AM [facility] REPOSITORY Order Comment: DR ISABEL LUEVANO PSAD ONLY TYPE CODE TESTS RESULT OUT OF RANGE REFERENCE UNITS LAB L501.9940 0.0-4.0 ng/mL PSA, Normal DIAGNOSTIC 0.16 Result Comment: This test was performed using the TPSA assay method for the MOLI chemistry system. Values obtained with different assay methods cannot be used interchangably. When changing PSA assays in the course of monitoring a patient, additional sequential testing should be carried out to confirm baseline values. Performed By: #### L500.4050, L501.9520, L501.9940 #### [facility] [address] [place], [place], [address] VITAMIN D,25 HYDROXY Collected: 10/02/2017 Status: F Source: [place] 10:52 AM [facility] REPOSITORY Order Comment: DR ISABEL ROJASD PSAD ONLY TYPE CODE TESTS RESULT OUT OF REFERENCE UNITS RANGE LAB L506.1000 29.95-100.01 ng/mL Low Vitamin D 15.1 25-OH Result Comment: Vitamin D 25(OH) Status Range Deficiency <20 ng/mL (50nmol/L) Insuffciency 20 - 30 ng/mL (50 - 75 nmol/L) Sufficiency 30 - 100 ng/mL (75 - 250 nmol/L) Toxicity >100 ng/mL (>250 nmol/L) Performed By: #### L506.1000 #### [facility] [place], [address] HEPATITIS C ANTIBODIES Collected: 10/02/2017 Status: F Source: [place] 10:52 AM [facility] REPOSITORY Order Comment: DR HALL ORDERD PSAD ONLY TYPE CODE TESTS RESULT OUT OF RANGE REFERENCE UNITS LAB L3100.0650 0.0-0.9 s/co ratio Normal HEP C AB <0.1 Result Comment: Negative: < 0.8 Indeterminate: 0.8 - 0.9 Positive: > 0.9 The CDC recommends that a positive HCV antibody result be followed up with a HCV Nucleic Acid Amplification test (993857). Performed at: [facility] [id number] Cue Selector: Michael Carson PhD, Phone: [phone] Performed By: #### L3100.0625 #### [facility] (refer to report for specific site) refer to report for address and phone number ALLERGIES ALLERGIES DATE TYPE / CODE NAME / CODE REACTION SEVERITY SOURCE Drug CIPRO Moderate Vishnu Pomerene Allergy/4160 HC/[id number](R ([facility] 71351(SNOMED XNORM) Modifier) Repository CT) (Qualifier Value) Drug IV Moderate Vishnu Pomerene Allergy/4160 Dye/[id number]( (Severity [facility] 10806(SNOMED RXNORM) Modifier) Repository CT) (Qualifier Value) ENCOUNTERS ENCOUNTERS ADMIT/DISCHARGE ACCOUNT ADMITTING ENCOUNTER LOCATION SOURCE NUMBER CLASS 05/08/2018 [id number] Ambulatory [facility] 1 [facility] ing:RAD Repository 04/16/2018 [id number] Ambulatory [facility] 5 [facility] ing:RAD Repository 04/01/2018 [id number] Ambulatory [facility] 7 [facility] ing:POLAB3 Repository 01/29/2018 [id number] Ambulatory [place]al 6 [facility] ing:MRI Repository 01/24/2018/ [id number] MCCANN, Emergency BuildinR [facility]LE Perezom: ERBed: D [facility] Hospital Repository 11/19/2017 [id number] Ambulatory [place] 9 [facility] ing:POLAB3 Repository 11/02/2017 [id number] Ambulatory [place]heal 9 [facility] ing:LAB.FUTUR Repository E 10/02/2017 [id number] Ambulatory [place] 8 [facility] ing:LAB Repository PAYERS PAYERS ENCOUNTER GUARANTOR PAYER SUBSCRIBER SOURCE 05/08/2018 TYL[place] L Primary Insurance:LINDA GARNET L [place] [id number] PRIMETIME HEALTH PLAN PLASTERDOB: [address] Number: [id number] Hospital [address]Dqw: 330 [id number] Repository [phone] () Date:0629-02-67XL [facility] [place], [place] [address]QM: 05/08/2018 Secondary NOT GIVENUNK [place] Insurance:SELF PAY [facility] Number: Effective Repository Date:2018-05-08 04/16/2018 GARNET L Primary Insurance:LINDA GARNET L [place] [id number] PRIMETIME HEALTH PLAN PLASTERDOB: [address] Number: [id number] Hospital [id number]: 330 [id number] Repository [phone] () Date:8892-03-72[address], [place] [address]KT: 04/16/2018 Secondary NOT GIVENUNK [place] Insurance:SELF PAY [facility] Number: Effective Repository Date:2018-04-16 04/01/2018 [place] L Primary Insurance:LINDA GARNET L [place] [id number] PRIMETIME HEALTH PLAN PLASTERDOB: [address] Number: [id number] Hospital [address]Efy: 330 [id number] Repository [phone] () Date:4488-51-03RG [address], [place] [address]CI: 04/01/2018 Secondary NOT GIVENUNK [place] Insurance:SELF PAY [facility] Number: Effective Repository Date:2018-04-01 01/29/2018 [place] L Primary Insurance:LINDA GARNET L [place] [id number] PRIMETIME HEALTH PLAN PLASTERDOB: [address], [facility] Number: [id number] Hospital [id number]: 330 [id number] Repository [phone] () Date:0401-47-86NQ [address] [address]QT: 01/29/2018 Secondary NOT GIVENUNK [place] Insurance:SELF PAY [facility] Number: Effective Repository Date:2018-01-28 01/24/2018 GARNET L Primary GARNET L Vishnu Pomerene PLASTERDOB: Insurance:PRIMETIME PLASTERDOB: [facility] [id number] [facility] [id number] Number: [address] RT [address] [place] [address] [id number] [place] [address] [id number]: Date:Plan Name:[id number] () 11/19/2017 [place] L Primary Insurance:LINDA GARNET L [place] [id number] [facility] [employer] PLASTERDOB: [address], [facility] Number: [id number] Hospital [id number]: 330 [id number] Repository [phone] () Date:9160-13-84CV [address], [place] [address]MV: 11/19/2017 Secondary NOT GIVENUNK [place] Insurance:SELF PAY [facility] Number: Effective Repository Date:2017-11-19 11/02/2017 [place] Primary Insurance:LINDA GARNET L [place] [id number] [facility] HEALTH PLAN PLASTERDOB: [address] Number: [id number] Hospital [address]Dqj: 330 [id number] Repository [phone] () Date:4699-29-66[address], [place] [address]DE: 11/02/2017 Secondary NOT GIVENUNK [place] Insurance:SELF PAY [facility] Number: Effective Repository Date:2017-10-04 10/02/2017 [place] Primary Insurance:LINDA TYLER [place] [id number] [facility] PLASTERDOB: [address] Number: [id number] Hospital [address]Jds: 330 [id number] Repository [phone] () Date:0473-55-48[address] [address]ZK: 10/02/2017 Secondary NOT GIVENUNK [place] Insurance:SELF PAY [facility] Number: Effective Repository Date:2017-10-02
== END ==
LOC: POLAB3 15:36 → RAD 15:41
PROVIDERS: Family Provider Family Medicine Geriatric Medicine; PCP Family Medicine Geriatric Medicine; Referring Provider Family Medicine Geriatric Medicine; Visit Provider Family Medicine Geriatric Medicine
DX: M10.9 Gout, unspecified (principal); R79.9 Abnormal finding of blood chemistry, unspecified; M79.609 Pain in unspecified limb
CPT/HCPCS: 36415; 73110; 73130; 80048; 84550; 85025; 85652; 86140

== ENCOUNTER → 2018-06-11 10:15 | Outpatient (CLI) | payer MEDICARE, SELFPAY ==
[2018-06-11 11:19] LABS: Prothrombin Time (Protime)PT. 13.6 SECONDS (11.7-14.9)
== END ==
PROVIDERS: Family Provider Family Medicine Geriatric Medicine; PCP Family Medicine Geriatric Medicine; Referring Provider Anesthesiology Pain Medicine; Visit Provider Anesthesiology Pain Medicine
DX: Z79.01 Long term (current) use of anticoagulants (principal)
CPT/HCPCS: 36415; 85610

== ENCOUNTER → 2018-06-25 11:42 | Outpatient (CLI) | payer MEDICARE, SELFPAY ==
--- NOTE | 2018-06-25 11:47 | RAD_ITS ---
STUDY: X-RAY - RIGHT KNEE REASON FOR EXAM: Male, 78 years old. Knee pain TECHNIQUE: 2 view(s) of the knee. COMPARISON: None. FINDINGS: Calcifications are noted within the anterior fibers of the quadriceps tendon. Patellar tendon is normal. There is a small knee joint effusion. There are no acute fractures. Small spurs from the tibial and femoral condyles are noted. RAD/Knee 1 or 2 Views IMPRESSION: Mild osteoarthritis of the right knee. No fracture. Calcifications within the quadriceps tendon in Electronically Signed: Brett Hodge MD at 2:57 EST Tel , Service support ,
--- NOTE | 2018-06-25 11:47 | RAD_ITS ---
STUDY: X-RAY - LEFT KNEE REASON FOR EXAM: Male, 78 years old. Knee pain TECHNIQUE: 2 view(s) of the knee. COMPARISON: None. FINDINGS: There is mild osteoarthritis of the knee demonstrated by narrowing of the patellofemoral articulation and small spurs from the cuneiform contrast. There are no acute fractures or dislocations. The quadriceps and patellar tendons are normal and there is a small knee joint effusion. RAD/Knee 1 or 2 Views IMPRESSION: Mild degenerative changes of the left knee. No fracture Electronically Signed: Brett Hodge MD at 2:58 EST Tel , Service support ,
--- OUTSIDE RECORDS SUMMARY | 2018-08-30 07:49 | XMS RPT_ITS ---
:1940 Author Organization OHIP Support Name Relationship Address Phone ROXANNE OMERINE Unavailable [address] + [place] [address] R Unavailable Unavailable Unavailable NEGRA, KATHERINE Unavailable [address] + [place] [address] R Unavailable Unavailable Unavailable NEGRA, KATHERINE Unavailable [address] + [place] [address] R Unavailable Unavailable Unavailable NEGRA, KATHERINE Unavailable [address] + [place] [address] R Unavailable Unavailable Unavailable NEGRA, KATHERINE Unavailable [address] + [place] [address] R Unavailable Unavailable Unavailable NEGRA, KATHERINE Unavailable [address] + [place] [address] R Unavailable Unavailable Unavailable NEGRA, KATHERINE Unavailable Unavailable + NEGRA, KATHERINE Unavailable [address] + [place] [address] R Unavailable Unavailable Unavailable NEGRA, KATHERINE Unavailable [address] + [place] [address] R Unavailable Unavailable Unavailable NEGRA, KATHERINE Unavailable [address] + [place] [address] R Unavailable Unavailable Unavailable Care Team Providers Name Role Phone SANDY ROACH MD Referring Unavailable SANDY ROACH MD Consulting Unavailable CARLYLE MCCANN DO Primary Care Unavailable CARLYLE MCCANN DO Attending Unavailable CARLYLE MCCANN DO Admitting Unavailable PROVIDER, UNKNOWN Consulting Unavailable PROVIDER, UNKNOWN Consulting Unavailable Beny Toney Attending Unavailable Beny Toney Referring Unavailable Sandy Roach Chi Primary Care Unavailable Ibeth Sr LIQUID CHLORINE OPERATOR-C Attending Unavailable Prebish, Ibeth LIQUID CHLORINE OPERATOR-C Referring Unavailable Marley, Sandy Chi Primary Care Unavailable Isabel Boo Attending Unavailable Isabel, Pollo Hinton Referring Unavailable Marley, Sandy Chi Primary Care Unavailable Marley, Sandy Chi Attending Unavailable Marley, Sandy Chi Primary Care Unavailable Marley, Sandy Chi Attending Unavailable Marley, Sandy Chi Primary Care Unavailable Marley, Sandy Chi Attending Unavailable Marley, Sandy Chi Referring Unavailable Marley, Sandy Chi Primary Care Unavailable Marley, Sandy Chi Attending Unavailable Marley, Sandy Chi Primary Care Unavailable Prebish, Ibeth LIQUID CHLORINE OPERATOR-C Attending Unavailable Prebish, Ibeth LIQUID CHLORINE OPERATOR-C Referring Unavailable Marley, Sandy Chi Primary Care Unavailable Marley, Sandy Chi Attending Unavailable Marley, Sandy Chi Primary Care Unavailable Marley, Sandy Chi Referring Unavailable PROBLEMS PROBLEMS DATE TYPE CONDITION / CODE ATTENDING STATUS SOURCE 06/25/2018 Unknown M25.562 - Pain in Prebish, Ibeth Active [place] left knee / LIQUID CHLORINE OPERATOR-C Community M25.562(ICD-10) Hospital Repository 06/25/2018 Unknown M25.561 - Pain in Prebish, Ibeth Active [place] right knee / LIQUID CHLORINE OPERATOR-C Community M25.561(ICD-10) Hospital Repository 05/08/2018 Unknown R79.9 - Abnormal Marley, Sandy Chi Active [place] finding of blood Community chemistry, Hospital unspecified / Repository R79.9(ICD-10) 04/16/2018 Unknown M54.9 - Prebish, Ibeth Active [place] Dorsalgia, LIQUID CHLORINE OPERATOR-C Community unspecified / Hospital M54.9(ICD-10) Repository 10/02/2017 Unknown 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 REPOSITORY [facility] Imaging Services [address] [place] [address] Knee 1 or 2 Views MR#: [id number] Acct: [id number] Name: TYLER PELAEZ Rep #: [id number] : 1940 M 78 From: Brett Hodge MD PCP: Marley BARNETT,Sandy Castillo Status: REG CLI Study: Knee 1 or 2 Views Date of Exam: 06/25/18 Exam# [id number] Ordering Dr: Ibeth Sr STUDY: X-RAY - RIGHT KNEE REASON FOR EXAM: Male, 78 years old. Knee pain TECHNIQUE: 2 view(s) of the knee. COMPARISON: None. FINDINGS: Calcifications are noted within the anterior fibers of the quadriceps tendon. Patellar tendon is normal. There is a small knee joint effusion. There are no acute fractures. Small spurs from the tibial and femoral condyles are noted. RAD/Knee 1 or 2 Views IMPRESSION: Mild osteoarthritis of the right knee. No fracture. Calcifications within the quadriceps tendon in Electronically Signed: Brett Hodge MD at 2:57 EST Tel , Service support , CC: Ibeth Sr; Sandy Roach MD Fur Glosser: Signed KNEE 1 OR 2 VIEWS Observed: 06/25/2018 Status: F Source: [place] 11:47 AM [facility] Imaging Services [address] [place] [address] Knee 1 or 2 Views MR#: [id number] Acct: [id number] Name: TYLER PELAEZ Chucky Rep #: [id number] : 1940 78 From: Brett Hodge MD PCP: Marley BARNETT,Sandy Castillo Status: REG CLI Study: Knee 1 or 2 Views Date of Exam: 06/25/18 Exam# [id number] Ordering Dr: Ibeth Sr STUDY: X-RAY - LEFT KNEE REASON FOR EXAM: Male, 78 years old. Knee pain TECHNIQUE: 2 view(s) of the knee. COMPARISON: None. FINDINGS: There is mild osteoarthritis of the knee demonstrated by narrowing of the patellofemoral articulation and small spurs from the cuneiform contrast. There are no acute fractures or dislocations. The quadriceps and patellar tendons are normal and there is a small knee joint effusion. RAD/Knee 1 or 2 Views IMPRESSION: Mild degenerative changes of the left knee. No fracture Electronically Signed: Brett Hodge MD at 2:58 EST Tel , Service support , CC: Ibeth Sr; Sandy Roach MD Fur Glosser: Signed PROTHROMBIN TIME W/INR Collected: 06/11/2018 Status: F Source: [place] 10:20 AM [facility] TYPE CODE TESTS RESULT OUT OF RANGE REFERENCE UNITS LAB L300.4150 11.7-14.9 SECONDS Normal PROTIME 13.6 LAB L300.4200 Normal INR 1.0 Performed By: #### L300.3900 #### [facility] [address] [facility] [place], [address] HAND MIN 3 VIEWS Observed: 05/08/2018 Status: F Source: [place]ER[place] 3:45 PM [facility] REPOSITORY [facility] Imaging Services [address] [place] [address] Hand Min 3 Views MR#: [id number] Acct: [id number] Name: TYLER PELAEZ Rep #: [id number] : 1940 M 78 From: Mayco Rodriguez DO PCP: Sandy Roach MD, Chi Status: REG CLI Study: Hand Min 3 Views Date of Exam: 05/08/18 Exam# [id number] Ordering Dr: Sandy Roach MD STUDY: X-RAY [...] Mayco Rodriguez DO at 8:34 EST Tel [phone], Service support , CC: Sandy Roach MD Fur Glosser: Signed WRIST MIN 3 VIEWS Observed: 05/08/2018 Status: F Source: [place] 3:45 PM [facility] REPOSITORY [facility] Imaging Services [address] [place] [address] Wrist min 3 Views MR#: [id number] Acct: [id number] Name: JASONTYLER BAILEY Chucky Rep #: [id number] : 1940 M 78 From: Jagdeep Robles DO PCP: Sandy Roach MD, Chi Status: REG CLI Study: Wrist min 3 Views Date of Exam: 05/08/18 Exam# [id number] Ordering Dr: Sandy Roach MD STUDY: X-RAY [...] Service support , CC: Sandy Roach MD Fur Glosser: Signed CBC W/DIFF, AUTOMATED Collected: 05/08/2018 Status: F Source: MICHEAL 3:36 PM [facility] REPOSITORY TYPE CODE TESTS RESULT OUT OF [...] 1.81 Performed By: #### L100.0100, L101.9900 #### [facility] [address] [place], [place], [address] ERYTHROCYTE SED RATE Collected: 05/08/2018 Status: F Source: [place]ER[place] 3:36 PM [facility] REPOSITORY TYPE CODE TESTS RESULT OUT OF RANGE REFERENCE UNITS LAB L102.0000 0-20 mm/hr High SED RATE 24 Performed By: #### L100.0100, L101.9900 #### [facility] [address] [place], [place], [address] BASIC METABOLIC Collected: 05/08/2018 Status: F Source: [place] PROFILE (BMP) 3:36 PM [facility] REPOSITORY TYPE CODE TESTS RESULT OUT OF [...] Performed By: #### L500.2500, L501.1400, L501.6710 #### [facility] [address] [place], [address] URIC ACID Collected: 05/08/2018 Status: F Source: [place] 3:36 PM [facility] REPOSITORY TYPE CODE TESTS RESULT OUT OF RANGE REFERENCE UNITS LAB L501.1400 3.5-7.2 mg/dL Normal URIC 6.1 Result Comment: The drugs N-Acetylcysteine and Metamizole may falsely depress this assay. Performed By: #### L500.2500, L501.1400, L501.6710 #### [facility], [address] CRP Collected: 05/08/2018 Status: F Source: [place] 3:36 PM [facility] REPOS[facility]ORY TYPE CODE TESTS RESULT OUT OF RANGE REFERENCE UNITS LAB L501.6710 0.0-3.0 mg/L High 81.50 C-REACTIVE PROT Result Comment: C-Reactive Protein (CRP) provides useful information for the diagnosis, therapy and monitoring of inflammatory processes and associated diseases. For the evaluation of Relative Risk for Cardiovascular Disease, a High Sensitivity CRP (HSCRP) should be ordered. Performed By: #### L500.2500, L501.1400, L501.6710 #### [facility] [address] [place], [address] L/S SPINE MIN 4 Observed: 04/16/2018 Status: F Source: [place] VIEWS 3:30 PM [facility] REPOSITORY [facility] Imaging Services [address] [place] [address] L/S Spine Min 4 Views MR#: [id number] Acct: [id number] Name: TYLER PELAEZ Rep #: [id number] : 1940 M 78 From: Viri Toney MD PCP: Sandy Roach MD, Chi Status: REG CLI Study: L/S Spine Min 4 Views Date of Exam: 04/16/18 Exam# [id number] Ordering Dr: Ibeth Sr STUDY: X-RAY - [...] , CC: Ibeth Sr; Sandy Roach MD Fur Glosser: Signed CBC W/DIFF, AUTOMATED Collected: 04/01/2018 Status: F Source: [place] 1:25 PM [facility] REPOSIT[facility] TYPE CODE TESTS RESULT OUT OF [...] Lymph 2.26 Performed By: #### L100.0100 #### [facility] [address] [place], [address] VITAMIN D,25 HYDROXY Collected: 04/01/2018 Status: F Source: [place] 1:25 PM [facility] REPOSITORY TYPE CODE TESTS RESULT OUT OF RANGE REFERENCE UNITS LAB L506.1000 29.95-100.01 ng/mL Normal Vitamin D 45.6 25-OH Result Comment: Vitamin D 25(OH) Status Range Deficiency <20 ng/mL (50nmol/L) Insuffciency 20 - 30 ng/mL (50 - 75 nmol/L) Sufficiency 30 - 100 ng/mL (75 - 250 nmol/L) Toxicity >100 ng/mL (>250 nmol/L) Performed By: #### L506.1000 #### [facility] [address] [place], [address] COMPREHENSIVE METABOLIC Collected: 04/01/2018 Status: F Source: MICHEAL PIRES 1:25 PM [facility] REPOSITORY TYPE CODE TESTS RESULT OUT OF [...] 8 Performed By: #### L500.4050, L501.9520 #### [facility] [address] [place], [address] THYROID STIM HORMONE Collected: 04/01/2018 Status: F Source: MICHEAL (TSH) 1:25 PM [facility] REPOSITORY TYPE CODE TESTS RESULT OUT OF RANGE REFERENCE UNITS LAB L501.9520 0.358-3.74 uIU/mL Normal TSH 2.62 Performed By: #### L500.4050, L501.9520 #### [facility] [address] [place], [address] UPPER EXT/NO JT/ WO Observed: 01/29/2018 Status: F Source: MICHEAL 6:41 AM [facility] RE[facility] Imaging Services [address] [address] Upper Ext/No Jt/ wo MR#: [id number] Acct: [id number] Name: TYLER PELAEZ Rep #: [id number] : 1940 M 77 From: Elliot Jo MD PCP: Sandy Roach MD, Chi Status: REG CLI Study: Upper Ext/No Jt/ wo Date of Exam: 01/29/18 Exam# [id number] Ordering Dr: Sandy Roach MD STUDY: MRI [...] Service support , CC: Sandy Roach MD Fur Glosser: Signed EMERGENCY REPORT Observed: 01/28/2018 Status: F [facility] REPORT NAME ACCOUNT SEX AGE ADMIT DISCHARGE PT MED. RECORD# NUMBER DATE DATE TYPE PLASTER, [id number] M 77 01/24/18 01/25/18 Thuy Locke [address] ROOM: ER DATE OF : 1940 DICTATING [...] 875 mg q12 hours for 10 days. [facility] 1 prior to discharge and 1 to [...] Carlyle Mccann DO 01/25/18 01:16 JOB #: [id number] Transcribed By: jerri 01/25/18 16:44 Electronically signed by: CARLYLE MCCANN DO 01/28/18 22:29 Page 2 of 2 TYLER PELAEZ Emergency Room Report WRIST COMPLETE RT Observed: 01/25/2018 Status: F Source: VISHNU ESP[place]AL 12:00 AM [place] [address] Patient: TYLER PELAEZ. Phone#: : 1940 Age: 77 Gender: M Pt. Type: ER Account: [id number] Location: 052 Ordering: CARLYLE MCCANN Exam Date: 01/24/2018/23:50 Family Phys: SANDY Kolb MARLEY Charge Code: [id number] Physician: [facility] Order #: [id number] DLP Dose#: PROCEDURE: X-RAY WRIST RT COMPLETE [...] 3 VIEWS Observed: 01/25/2018 Status: F Source: [facility] 12:00 AM [place] [address] Patient: TYLER PELAEZ Phone#: : 1940 Age: 77 Gender: M Pt. Type: ER Account: [id number] Location: 052 Ordering: CARLYLE MCCANN Exam Date: 01/24/2018/23:40 Family Phys: SANDY WatsonWhitney MARLEY Charge Code: [id number] Physician: [facility] Order #: [id number] DLP Dose#: PROCEDURE: X-RAY HAND RT COMPLETE [...] Source: VISHNU ESPINAL CULTURE BLOOD 11:59 PM [facility] REPOSITORY CULTURE BLOOD CULTURE BLOOD SET: 1 of 2 24HOUR REPORT NO GROWTH 48HOUR REPORT NO GROWTH 72HOUR REPORT NO GROWTH M I C R O B I O L O G Y R E P O R T FINAL Antimicrobial Susceptibility and Organism Identification Report Specimen Number : [id number] Requested : 01/24/18 Specimen Source : BLOOD Collected : 01/24/18 23:59 [place] [facility] [place] : Emergency Room Received : 01/24/18 23:59 Requesting Physician : fernandez Patient/Specimen Tests and Comments Specimen Comments FINAL REPORT: No Growth at 5 Days Tech : Source : BLOOD ID # : [id number] FINAL Report Date : / / : Collected : 01/24/18 23:59 01/30/18.BKO. 01/30/18.BKO.COMPLETE Performed By: #### [id number] #### [facility],[address] [place] [address] CBC Collected: 01/24/2018 Status: F Source: [facility] 11:43 PM [facility] REPOSITORY TYPE CODE TESTS RESULT OUT OF [...] x10EE3/U L Neut # High 8.50 LAB Payette #(LOINC) 0.20 - 1.00 x10EE3/U L [place]ette # 0.60 LAB EO #(LOINC) 0.00 - 0.50 x10EE3/U L EO # 0.00 LAB Baso #(LOINC) 0.00 - 0.10 x10EE3/U L Baso # 0.10 LAB MANUAL DIFF(LOINC) MANUAL DIFF N/A LAB MORPHOLOGY(INC ) MORPHOLOGY N/A Result Comment: {CD] Performed By: #### [id number] #### [facility],[address] [place] [address] CMP WITH EGFR Collected: 01/24/2018 Status: F Source: [facility] 11:43 PM [facility] REPOSITORY TYPE CODE TESTS RESULT OUT OF [...] OF AGE AND OLDER. Performed By: #### [id number] #### [place] [address] C-REACTIVE PROTEIN Collected: 01/24/2018 Status: F Source: [facility] 11:43 PM [facility] REPOSITORY TYPE CODE TESTS RESULT OUT OF RANGE REFERENCE UNITS LAB CRP(LOINC) 0.00 - 1.00 mg/dl High CRP 2.70 Performed By: #### [id number] #### [place] [address] LACTATE Collected: 01/24/2018 Status: F Source: [facility] 11:43 PM [facility] REPOSITORY TYPE CODE TESTS RESULT OUT OF REFERENCE UNITS RANGE LAB LACTATE(SALIMA 4.5 - 18.0 mg/dL NC) LACTATE 11.8 Performed By: #### [id number] #### [facility],[address] [place] [address] Observed: 01/24/2018 Status: F Source: VISHNU ESPINAL CULTURE BLOOD 11:43 PM [facility] REPOSITORY CULTURE BLOOD CULTURE BLOOD SET: 2 of 2 24HOUR REPORT NO GROWTH 48HOUR REPORT NO GROWTH 72HOUR REPORT NO GROWTH M I C R O B I O L O G Y R E P O R T FINAL Antimicrobial Susceptibility and Organism Identification Report Specimen Number : [id number] Requested : 01/24/18 Specimen Source : BLOOD Collected : 01/24/18 23:43 [facility] [place] : Emergency Room Received : 01/24/18 23:43 Requesting Physician : fernandez Patient/Specimen Tests and Comments Specimen Comments FINAL REPORT: No Growth at 5 Days Tech : Source : BLOOD ID # : [id number] FINAL Report Date : / / : Collected : 01/24/18 23:43 01/30/18.BKO. 01/30/18.BKO.COMPLETE Performed By: #### [id number] #### [facility],[address] [place] [address] THYROID STIM HORMONE Collected: 11/19/2017 Status: F Source: [place] (TSH) 2:12 PM [facility] TYPE CODE TESTS RESULT OUT OF RANGE REFERENCE UNITS LAB L501.9520 0.358-3.74 uIU/mL Normal TSH 1.78 Performed By: #### L501.9520 #### [facility] [address] [place] [address]. [place], [address] CBC W/DIFF, AUTOMATED Collected: 10/02/2017 Status: F Source: [place] 10:52 AM [facility] RE[facility]ORY Order Comment: DR HALL ORDERD PSAD [...] Lymph 2.16 Performed By: #### L100.0100 #### [facility] [address] [place], [address] COMPREHENSIVE METABOLIC Collected: 10/02/2017 Status: F Source: [facility] 10:52 AM [facility] Order Comment: DR HALL ORDERD PSAD [...] Performed By: #### L500.4050, L501.9520, L501.9940 #### [facility] [address] [facility]. [place], [place], [address] THYROID STIM HORMONE Collected: 10/02/2017 Status: F Source: [place] (TSH) 10:52 AM [facility] Order Comment: DR HALL ORDERD PSAD ONLY TYPE CODE TESTS RESULT OUT OF RANGE REFERENCE UNITS LAB L501.9520 0.358-3.74 uIU/mL High TSH 3.75 Performed By: #### L500.4050, L501.9520, L501.9940 #### [facility] [address] [place], [address] PSA,TOTAL- DIAGNOSTIC Collected: 10/02/2017 Status: F Source: [place] 10:52 AM [facility] Order Comment: DR HALL ORDERPardeep PSAD ONLY TYPE CODE TESTS RESULT OUT OF RANGE REFERENCE UNITS LAB L501.9940 0.0-4.0 ng/mL PSA, Normal DIAGNOSTIC 0.16 Result Comment: This test was performed using the TPSA assay method for the [employer] chemistry system. Values obtained with different assay methods cannot be used interchangably. When changing PSA assays in the course of monitoring a patient, additional sequential testing should be carried out to confirm baseline values. Performed By: #### L500.4050, L501.9520, L501.9940 #### [facility] [address] [place], [address] VITAMIN D,25 HYDROXY Collected: 10/02/2017 Status: F Source: [place] 10:52 AM [facility] Order Comment: DR ISABEL LUEVANO PSAD [...] (>250 nmol/L) Performed By: #### L506.1000 #### [facility] [address] [place], [address] HEPATITIS C ANTIBODIES Collected: 10/02/2017 Status: F Source: [place] 10:52 AM [facility] Order Comment: DR ISABEL LUEVANO PSAD ONLY TYPE CODE TESTS RESULT OUT OF RANGE REFERENCE UNITS LAB L3100.0650 0.0-0.9 s/co ratio Normal HEP C AB <0.1 Result Comment: Negative: < 0.8 Indeterminate: 0.8 - 0.9 Positive: > 0.9 The CDC recommends that a positive HCV antibody result be followed up with a HCV Nucleic Acid Amplification test (610884). Performed at: - [facility] [id number] [employer]: Michael Carson PhD, Phone: [phone] Performed By: #### L3100.0625 #### [facility] (refer to report for specific site) refer to report for address and phone number ALLERGIES ALLERGIES DATE TYPE / CODE NAME / CODE REACTION SEVERITY SOURCE Drug CIPRO Moderate Vishnu Pomerene Allergy/4160 /03316413(R ([facility] [address](SNOMED XNORM) Modifier) Repository CT) (Qualifier Value) Drug IV Moderate Vishnu Espinal Allergy/4160 Dye/16712455( (Severity [facility] [address](SNOMED RXNORM) Modifier) Repository CT) (Qualifier Value) ENCOUNTERS ENCOUNTERS ADMIT/DISCHARGE ACCOUNT ADMITTING ENCOUNTER LOCATION SOURCE NUMBER CLASS 06/25/2018 [id number] [place]ulatory [place] 3 [facility] ing:RAD Repository 06/11/2018 [id number] Ambulatory Micheal Micheal 0 [facility] ing:LAB Repository 05/08/2018 [id number] Ambulatory Micheal Micheal 1 [facility] ing:RAD Repository 04/16/2018 [id number] Ambulatory [place]heal Micheal 5 [facility] ing:RAD Repository 04/01/2018 [id number] Ambulatory Micheal Micheal 7 [facility] ing:POLAB3 Repository 01/29/2018 [id number] [place]ulatory [place] 6 [facility] ing:MRI Repository 01/24/2018/ [id number] FERNANDEZ, Emergency BuildinR Vishnu Darbyne 8 CARLYLE DO ruizom: ERBed: D [facility] Repository 11/19/2017 [id number] Ambulatory Micheal Micheal 9 [facility] ing:POLAB3 Repository 11/02/2017 [id number] Ambulatory Micheal Micheal 9 [facility] ing:LAB.FUTUR Repository E 10/02/2017 [id number] Ambulatory Micheal Micheal 8 [facility] ing:LAB Repository PAYERS PAYERS ENCOUNTER GUARANTOR PAYER SUBSCRIBER SOURCE 06/25/2018 TYLER Locke Primary Insurance:LINDA TYLER Locke Micheal [id number] [facility] PLASTERDOB: [address] Number: [id number] [address]Nzs: [phone] [id number] Repository [phone] (HP) Date:6101-87-38SE [place]HAE [address] [place] [address]MA: 06/25/2018 Secondary NOT GIVENUNK [place] Insurance:SELF PAY [facility] Number: Effective Repository Date:2018-06-25 06/11/2018 GARNET L Primary Insurance:LINDA GARNET L [place] [id number] PRIMETIME HEALTH PLAN PLASTERDOB: [address] Number: [id number] [address]Gia: (330 [id number] Repository [phone] () Date:[id number], [place] [address]HI: 06/11/2018 Secondary NOT GIVENUNK [place] Insurance:SELF PAY [facility] Number: Effective Repository Date:2018-06-11 05/08/2018 GARNET L Primary Insurance:LINDA GARNET L Micheal [id number] [facility] PLASTERDOB: [address] Number: [id number] Hospital [address]Ctd: 330 [id number] Repository [phone] () Date:[id number] [facility] [address], [place] [address]AB: 05/08/2018 Secondary NOT GIVENUNK Micheal Insurance:SELF PAY [facility] Number: Effective Repository Date:2018-05-08 04/16/2018 GARNET L Primary Insurance:LINDA GARNET L Micheal [id number] [facility] PLASTERDOB: [address] Number: [id number] [address]Evr: (330 [id number] Repository [phone] (HP) Date:3291-28-99VW [facility] [address] [address]XJ: 04/16/2018 Secondary NOT GIVENUNK Micheal Insurance:SELF PAY [facility] Number: Effective Repository Date:2018-04-16 04/01/2018 [place] L Primary Insurance:LINDA GARNET L [place] [id number] PRIMETIME HEALTH PLAN PLASTERDOB: [address] Number: [id number] Hospital [id number]: 330 [id number] Repository [phone] (HP) Date:5884-69-74[address], [place] [address]BM: 04/01/2018 Secondary NOT GIVENUNK [place] Insurance:SELF PAY [facility] Number: Effective Repository Date:2018-04-01 01/29/2018 [place] L Primary Insurance:LINDA GARNET L [place] [id number] SR PRIMETIME HEALTH PLAN PLASTERDOB: [address] Number: [id number] Hospital [address]Yhf: 330 [id number] Repository [phone] () Date:6159-68-73GQ [address] [address]GS: 01/29/2018 Secondary NOT GIVENUNK Micheal Insurance:SELF PAY [facility] Number: Effective Repository Date:2018-01-28 01/24/2018 GARNET L Primary GARNET L Vishnu Espinal PLASTERDOB: Insurance:PRIMETIME PLASTERDOB: [facility] [id number] [facility] [facility] [id number] RT Number: 4 RT [address]ository [address] [place] [address] [id number] [place] [address] [id number]: Date:Plan Name:[id number] () 11/19/2017 [place] Primary Insurance:LINDA GARNET L Micheal [id number] PRIMETIME HEALTH PLAN PLASTERDOB: [address] Number: [id number] [address]Qba: 330 [id number] Repository [phone] () Date:[id number], [place] [address]QL: 11/19/2017 Secondary NOT GIVENUNK Micheal Insurance:SELF PAY [facility] Number: Effective Repository Date:2017-11-19 11/02/2017 [place] L Primary Insurance:LINDA GARNET L Micheal [id number] PRIMETIME HEALTH PLAN PLASTERDOB: [address] Number: [id number] [address]Aey: 330 [id number] Repository [phone] () Date:7710-03-40[address] [address]CY: 11/02/2017 Secondary NOT GIVENUNK [place] Insurance:SELF PAY [facility] Number: Effective Repository Date:2017-10-04 10/02/2017 [place] Primary Insurance:LINDALT TYLER [place] Micheal [id number] [facility] HEALTH PLAN [facility]ERDOB: [address] [facility] Number: [id number] [id number]: 330 [id number] Repository [phone] () Date:1988-98-54[facility] [address] [address]IJ: 10/02/2017 Secondary NOT GIVENUNK [place] Insurance:SELF PAY [facility] Number: Effective Repository Date:2017-10-02
== END ==
PROVIDERS: Family Provider Family Medicine Geriatric Medicine; PCP Family Medicine Geriatric Medicine; Referring Provider Nurse Practitioner Family; Visit Provider Nurse Practitioner Family
DX: M25.561 Pain in right knee (principal); M25.562 Pain in left knee
CPT/HCPCS: 73560

== ENCOUNTER → 2018-07-23 13:19 | Outpatient (CLI) | payer MEDICARE, SELFPAY ==
[2018-07-23 16:48] LABS: PSA,Total - Annual Screen 0.51 ng/mL (0.00-4.00)
== END ==
PROVIDERS: Family Provider Family Medicine Geriatric Medicine; PCP Family Medicine Geriatric Medicine; Visit Provider Family Medicine Geriatric Medicine
DX: C61 Malignant neoplasm of prostate (principal); N39.0 Urinary tract infection, site not specified
CPT/HCPCS: 36415; 84153; 87086; 87088; 87186; G0103

== ENCOUNTER → 2018-10-06 14:00 | Outpatient (CLI) | payer MEDICARE, SELFPAY ==
[2018-10-06 16:10] LABS: Absolute Lymphocyte Count 1.91 X10^3/ul (0.83-4.51); Absolute Neutrophil Count 4.3 X10^3/uL (2.0-7.7); Basophil# 0.02 X10^3/uL; Basophil% 0.3 % (0-1); Eosinophils% 1.4 % (0-5); Hematocrit 44.1 % (40-54); Lymphocyte # 1.91 X10^3/ul (4.0); Lymphocyte % 26.8 % (19-41); Mean Corp Hgb Conc 31.7 g/gl (32-36); Mean Corpuscular Hgb 28.5 pg (27.0-32.0); Mean Corpuscular Volume 89.6 fL (80-94); Mean Platelet Vol. 10.4 fl (6.2-12.0); Monocyte# 0.75 X10^3/uL; Monocyte% 10.5 % (0-10); Neutrophil % 60.2 % (47-70); Platelet Count 204 K/mm3 (150-450); RBC Distribution Width CV 15.5 % (11.6-14.6); Red Blood Count 4.92 M/mm3 (4.6-6.2); White Blood Count 7.1 K/mm3 (4.4-11.0)
[2018-10-06 16:27] LABS: Vitamin D,25 Hydroxy 17.7 ng/mL (29.95-100.01)
[2018-10-06 16:29] LABS: AST(SGOT) 22 U/L (15-37); Alanine Aminotransfer ALT/SGPT 26 U/L (16-61); Albumin, Serum 3.5 g/dL (3.2-5.0); Alkaline Phosphatase 88 U/L (45-117); Anion Gap 6 (5-15); BUN 16 mg/dL (7-18); BUN/Creat Ratio 18.6 RATIO (10-20); Calcium,Total 8.3 mg/dL (8.5-10.1); Chloride 109 mmol/L (98-107); Creatinine, Serum 0.86 mg/dL (0.70-1.30); EST Glomerular Filtration Rate 92 mL/min (>60); Est Glom Filt Rate - Afr Amer 111 mL/min (>60); Globulin 3.5 g/dL (2.2-4.2); Glucose 87 mg/dL (74-106); Sodium Level 142 mmol/L (136-145); Thyroid Stim Hormone (TSH) 2.07 uIU/mL (0.358-3.74)
[2018-10-06 16:35] LABS: POSITIVE COUNT NO; POSITIVE DIFFERENTIAL NO; POSITIVE MORPHOLOGY NO
== END ==
PROVIDERS: Family Provider Family Medicine Geriatric Medicine; PCP Family Medicine Geriatric Medicine; Visit Provider Family Medicine Geriatric Medicine
DX: E55.9 Vitamin D deficiency, unspecified (principal); R53.83 Other fatigue
CPT/HCPCS: 36415; 80053; 82306; 84443; 85025

== ENCOUNTER → 2019-01-06 10:30 | Outpatient (CLI) | payer MEDICARE, SELFPAY ==
[2019-01-06 13:46] LABS: PSA,Total- Diagnostic 0.12 ng/mL (0.0-4.0)
== END ==
PROVIDERS: Family Provider Family Medicine Geriatric Medicine; PCP Family Medicine Geriatric Medicine; Visit Provider Urology
DX: C61 Malignant neoplasm of prostate (principal)
CPT/HCPCS: 36415; 84153

== ENCOUNTER → 2019-03-17 13:59 | Outpatient (CLI) | payer MEDICARE, SELFPAY ==
--- NOTE | 2019-03-17 14:15 | RAD_ITS ---
STUDY: X-RAY - LEFT ELBOW REASON FOR EXAM: Male, 79 years old. Elbow pain. Swelling and decreased range of motion TECHNIQUE: 3 view(s) of the elbow. COMPARISON: None. FINDINGS: Normal visualized humerus, radius and ulna. Moderate calcified spur at the insertion of the triceps. Small bone densities in the on the medial and lateral humeral epicondyles suggestive of chronic soft tissue inflammation-epicondylitis. Normal radiocapitellar and ulnotrochlear articulations. The soft tissue structures are otherwise unremarkable. RAD/Elbow min 3 Views IMPRESSION: No acute fracture or dislocation. Electronically Signed: Crispin Jacinto MD at 23:54 EDT , Service support ,
[2019-03-17 17:26] LABS: Absolute Lymphocyte Count 1.79 X10^3/uL (0.83-4.51); Basophil# 0.03 X10^3/uL; Basophil% 0.3 % (0-1); Eosinophil# 0.08 X10^3/uL; Eosinophils% 0.9 % (0-5); Hematocrit 45.9 % (40-54); Hemoglobin 14.6 g/dL (13.0-16.5); Lymphocyte # 1.79 X10^3/ul (4.0); Lymphocyte % 19.9 % (19-41); Mean Corp Hgb Conc 31.8 g/dL (32-36); Mean Corpuscular Hgb 28.8 pg (27.0-32.0); Mean Corpuscular Volume 90.5 fL (80-94); Mean Platelet Vol. 10.6 fl (6.2-12.0); Monocyte# 1.02 X10^3/uL; Monocyte% 11.3 % (0-10); NRBC Flagged by Analyzer 0 % (0-5); Neutrophil # 6.01 X10^3/uL (2.7-7.7); Neutrophil % 66.9 % (47-70); Platelet Count 214 K/mm3 (150-450); RBC Distribution Width CV 14.4 % (11.6-14.6); RBC Distribution Width SD 47.8 fl (35.1-43.9); Red Blood Count 5.07 M/mm3 (4.6-6.2)
[2019-03-17 17:42] LABS: Anion Gap 6 (5-15); BUN 11 mg/dL (7-18); BUN/Creat Ratio 13.9 RATIO (10-20); Calcium,Total 8.8 mg/dL (8.5-10.1); Chloride 106 mmol/L (98-107); Creatinine, Serum 0.79 mg/dL (0.70-1.30); EST Glomerular Filtration Rate 101 mL/min (>60); Est Glom Filt Rate - Afr Amer 122 mL/min (>60); Glucose 94 mg/dL (74-106); Potassium 4.2 mmol/L (3.5-5.1); Sodium Level 138 mmol/L (136-145); Uric Acid 4.6 mg/dL (3.5-7.2)
[2019-03-17 18:33] LABS: Erythrocyte Sedimentation Rate 26 mm/hr (0-20)
== END ==
LOC: POLAB3 14:00 → RAD 14:10
PROVIDERS: Family Provider Family Medicine Geriatric Medicine; PCP Family Medicine Geriatric Medicine; Referring Provider Family Medicine Geriatric Medicine; Visit Provider Family Medicine Geriatric Medicine
DX: M10.9 Gout, unspecified (principal); R79.9 Abnormal finding of blood chemistry, unspecified; M25.522 Pain in left elbow
CPT/HCPCS: 36415; 73080; 80048; 84550; 85025; 85652; 86140

== ENCOUNTER → 2019-04-06 | Outpatient (CLI) | payer MEDICARE, SELFPAY ==
[2019-04-06 12:42] LABS: Absolute Lymphocyte Count 2.13 X10^3/uL (0.83-4.51); Absolute Neutrophil Count 4.4 X10^3/uL (2.0-7.7); Basophil# 0.04 X10^3/uL; Basophil% 0.5 % (0-1); Eosinophil# 0.14 X10^3/uL; Eosinophils% 1.9 % (0-5); Hematocrit 45.8 % (40-54); Hemoglobin 14.6 g/dL (13.0-16.5); Lymphocyte # 2.13 X10^3/ul (4.0); Lymphocyte % 28.6 % (19-41); Mean Corp Hgb Conc 31.9 g/dL (32-36); Mean Corpuscular Hgb 28.4 pg (27.0-32.0); Mean Corpuscular Volume 89.1 fL (80-94); Mean Platelet Vol. 10.6 fl (6.2-12.0); Monocyte# 0.68 X10^3/uL; Monocyte% 9.1 % (0-10); NRBC Flagged by Analyzer 0 % (0-5); Neutrophil # 4.43 X10^3/uL (2.7-7.7); Neutrophil % 59.4 % (47-70); Platelet Count 200 K/mm3 (150-450); RBC Distribution Width CV 14.6 % (11.6-14.6); RBC Distribution Width SD 47.7 fl (35.1-43.9); Red Blood Count 5.14 M/mm3 (4.6-6.2); White Blood Count 7.5 K/mm3 (4.4-11.0)
[2019-04-06 13:02] LABS: Vitamin D,25 Hydroxy 30.2 ng/mL (29.95-100.01)
[2019-04-06 13:22] LABS: ALB/GLOB Ratio 0.9 RATIO (0.9-2.4); AST(SGOT) 18 U/L (15-37); Alanine Aminotransfer ALT/SGPT 20 U/L (16-61); Albumin, Serum 3.5 g/dL (3.2-5.0); Alkaline Phosphatase 85 U/L (45-117); Anion Gap 7 (5-15); BUN 12 mg/dL (7-18); BUN/Creat Ratio 13.3 RATIO (10-20); Calcium,Total 9.3 mg/dL (8.5-10.1); Chloride 105 mmol/L (98-107); EST Glomerular Filtration Rate 87 mL/min (>60); Est Glom Filt Rate - Afr Amer 105 mL/min (>60); Globulin 3.7 g/dL (2.2-4.2); Glucose 85 mg/dL (74-106); Potassium 4.3 mmol/L (3.5-5.1); Protein, Total 7.2 g/dL (6.4-8.2); Sodium Level 139 mmol/L (136-145); Thyroid Stim Hormone (TSH) 1.56 uIU/mL (0.358-3.74); Uric Acid 5.3 mg/dL (3.5-7.2)
== END | disposition home or self-care (01) ==
LOC: POLAB3 11:05
PROVIDERS: Family Provider Family Medicine Geriatric Medicine; PCP Family Medicine Geriatric Medicine; Visit Provider Family Medicine Geriatric Medicine
DX: E55.9 Vitamin D deficiency, unspecified (principal); R53.83 Other fatigue; M10.9 Gout, unspecified
CPT/HCPCS: 36415; 80053; 82306; 84443; 84550; 85025

== ENCOUNTER → 2019-06-16 15:02 | Outpatient (CLI) | payer MEDICARE, SELFPAY ==
--- NOTE | 2019-06-16 15:06 | RAD_ITS ---
STUDY: X-RAY - PELVIS AND RIGHT HIP REASON FOR EXAM: Male, 79 years old. PAIN TECHNIQUE: 3 views of the pelvis and hip. COMPARISON: None. FINDINGS: Severe degenerative change of both hips with [id number] contact and complete joint space loss superiorly. No acute fracture or dislocation. Moderate degenerative change of the lower lumbar spine RAD/HIP, UNI W/ Pelvis 2-3 Views IMPRESSION: As above Electronically Signed: Jagdeep Robles DO at 11:34 EST Tel , Service support ,
== END ==
PROVIDERS: Family Provider Family Medicine Geriatric Medicine; PCP Family Medicine Geriatric Medicine; Referring Provider Anesthesiology Pain Medicine; Visit Provider Anesthesiology Pain Medicine
DX: M16.11 Unilateral primary osteoarthritis, right hip (principal)
CPT/HCPCS: 73502

== ENCOUNTER → 2019-08-28 07:40 | Outpatient (CLI) | payer MEDICARE, SELFPAY ==
--- NOTE | 2019-08-28 07:47 | CT_ITS ---
STUDY: CT BRAIN WITHOUT CONTRAST REASON FOR EXAM: Male, 79 years old. Hx of stroke. RADIATION DOSAGE (If Supplied By Facility): CTDIvol = ( 44.99 ) mGy, DLP = ( 762.36 ) mGycm TECHNIQUE: Transaxial CT imaging of the brain was performed without administration of intravenous contrast material. Individualized dose optimization techniques were used for this CT. COMPARISON: No relevant priors. FINDINGS: Normal soft tissue structures. Normal calvarium. There is mild cerebral atrophy with widening of the extra-axial spaces and ventricular dilatation. Normal white matter tracts of the cerebral hemispheres. There are small punctate calcifications of the basal ganglia which are seen in the aging brain as a normal variant. Normal brainstem. Normal cerebellum. There is no intracranial hemorrhage. There are no findings of an acute ischemic infarction. Atherosclerotic calcification of the vertebral arteries and cavernous portions of the internal carotid arteries bilaterally. Normal visualized paranasal sinuses. CT/Brain/Head without Contrast IMPRESSION: Chronic involutional changes of the brain. Electronically Signed: Milan Soni, at 8:58 EDT , Service support ,
== END ==
PROVIDERS: PCP Family Medicine Geriatric Medicine; Referring Provider Family Medicine Geriatric Medicine; Visit Provider Family Medicine Geriatric Medicine
DX: G81.91 Hemiplegia, unspecified affecting right dominant side (principal); Z86.73 Personal history of transient ischemic attack (TIA), and cerebral infarction without residual deficits
CPT/HCPCS: 70450

== ENCOUNTER → 2019-09-17 14:03 | Outpatient (CLI) | payer MEDICARE, SELFPAY ==
[2019-09-17 17:05] LABS: M R Staph aureus DNA By PCR Negative (Negative); Probe Check PASS; Specimen Processing Control PASS
== END ==
PROVIDERS: PCP Family Medicine Geriatric Medicine; Visit Provider Family Medicine Geriatric Medicine
DX: B95.62 Methicillin resistant Staphylococcus aureus infection as the cause of diseases classified elsewhere (principal)
CPT/HCPCS: 87070; 87205; 87641

== ENCOUNTER → 2019-10-08 11:07 | Outpatient (CLI) | payer MEDICARE, SELFPAY ==
[2019-10-08 12:50] LABS: Absolute Neutrophil Count 4.6 X10^3/uL (2.0-7.7); Basophil# 0.05 X10^3/uL; Basophil% 0.7 % (0-1); Eosinophil# 0.09 X10^3/uL; Eosinophils% 1.3 % (0-5); Hematocrit 44.8 % (40-54); Hemoglobin 14.6 g/dL (13.0-16.5); Lymphocyte % 22.6 % (19-41); Mean Corp Hgb Conc 32.6 g/dL (32-36); Mean Corpuscular Hgb 29.5 pg (27.0-32.0); Mean Corpuscular Volume 90.5 fL (80-94); Mean Platelet Vol. 10.3 fl (6.2-12.0); Monocyte# 0.68 X10^3/uL; Monocyte% 9.6 % (0-10); NRBC Flagged by Analyzer 0 % (0-5); Neutrophil # 4.64 X10^3/uL (2.7-7.7); Neutrophil % 65.4 % (47-70); Platelet Count 222 K/mm3 (150-450); RBC Distribution Width CV 14.6 % (11.6-14.6); RBC Distribution Width SD 47.8 fl (35.1-43.9); Red Blood Count 4.95 M/mm3 (4.6-6.2); White Blood Count 7.1 K/mm3 (4.4-11.0)
[2019-10-08 13:31] LABS: Vitamin D,25 Hydroxy 32.3 ng/mL
[2019-10-08 13:39] LABS: ALB/GLOB Ratio 0.9 RATIO (0.9-2.4); AST(SGOT) 23 U/L (15-37); Alanine Aminotransfer ALT/SGPT 18 U/L (16-61); Albumin, Serum 3.5 g/dL (3.2-5.0); Alkaline Phosphatase 88 U/L (45-117); Anion Gap 6 (5-15); BUN 13 mg/dL (7-18); BUN/Creat Ratio 15.9 RATIO (10-20); Chloride 105 mmol/L (98-107); Creatinine, Serum 0.82 mg/dL (0.70-1.30); EST Glomerular Filtration Rate 97 mL/min (>60); Est Glom Filt Rate - Afr Amer 117 mL/min (>60); Globulin 3.7 g/dL (2.2-4.2); Glucose 84 mg/dL (74-106); Potassium 4.4 mmol/L (3.5-5.1); Protein, Total 7.2 g/dL (6.4-8.2); Sodium Level 138 mmol/L (136-145); Uric Acid 4.4 mg/dL (3.5-7.2)
== END ==
LOC: LAB.FUTURE 11:09 → LAB 10-09 06:50
PROVIDERS: PCP Family Medicine Geriatric Medicine; Referring Provider Family Medicine Geriatric Medicine; Visit Provider Family Medicine Geriatric Medicine
DX: E55.9 Vitamin D deficiency, unspecified (principal); M10.9 Gout, unspecified; R53.83 Other fatigue
CPT/HCPCS: 36415; 80053; 82306; 84443; 84550; 85025

== ENCOUNTER → 2020-01-13 12:37 | Outpatient (CLI) | payer MEDICARE, SELFPAY ==
--- NOTE | 2020-01-13 12:47 | MRI_ITS ---
STUDY: MRI LUMBAR SPINE WITHOUT CONTRAST REASON FOR EXAM: Male, 79 years old. disc, radiculopathy, back pain, bilat hip pain TECHNIQUE: Standardized fat and water weighted pulse sequences were obtained in the sagittal and axial planes. COMPARISON: Lumbar spine x-rays 04/16/2018 FINDINGS: No evidence for acute fracture or subluxation. Large interosseous hemangioma within the L2 vertebral body T12-L1: Normal endplates. Normal disc height, desiccation and minor annular bulge with tiny right foraminal disc protrusion.. Normal bilateral facet joints. Normal central canal and bilateral lateral recesses. Minor right neuroforaminal encroachment. Normal lumbar lordosis. There is severe dextro scoliosis. Normal conus medullaris that terminates at T12-L1 L1-2: Grade 1 retrolisthesis Normal endplates. Normal disc height, desiccation and minor bulging disc osteophyte complex.. Left-sided facet arthropathy.. Normal central canal. Mild left lateral recess and neuroforaminal stenosis L2-3: Grade 1 retrolisthesis Narrowed disc space with endplate spurring. Desiccation of the disc and minor bulging disc osteophyte complex. Bilateral facet arthropathy and thickening of ligamenta flava slightly greater on the left. Normal central canal. Mild left lateral recess stenosis and moderate bilateral neuroforaminal stenosis L3-4: Normal endplates. Normal disc height, desiccation and minimal bulging disc osteophyte complex.. Bilateral facet arthropathy and thickening of ligamenta flava.. Normal central canal. Mild bilateral recess and moderate neuroforaminal stenosis. L4-5: Grade 1 spondylolisthesis. Narrowed disc space with desiccation of the disc and mild bulging disc osteophyte complex.. Bilateral facet arthropathy more severe on the left. Mild narrowing of the central canal. Mild right lateral recess stenosis and moderate narrowing on the left. Severe bilateral neuroforaminal stenosis. L5-S1: Normal endplates. Normal disc height, desiccation and minimal annular bulge. Bilateral facet arthropathy and thickening of ligamenta flava.. Normal central canal and bilateral lateral recesses. Normal bilateral intervertebral neural foramina. Normal visualized sacral ala. Normal visualized paraspinous soft tissue structures. MRI/Spine Lumbar (Routine) IMPRESSION: Severe scoliosis and degenerative change. Multilevel spinal stenosis secondary to disc disease and bony hypertrophy most severe at L4-5 greater on the left exaggerated by shortened pedicles. Findings as above Electronically Signed: Beny Davidson MD at 17:56 EDT , Service support ,
[2020-01-13 15:32] LABS: PSA,Total- Diagnostic 0.14 ng/mL (0.0-4.0)
== END ==
PROVIDERS: PCP Family Medicine Geriatric Medicine; Referring Provider Anesthesiology Pain Medicine; Visit Provider Anesthesiology Pain Medicine
DX: M51.17 Intervertebral disc disorders with radiculopathy, lumbosacral region (principal); C61 Malignant neoplasm of prostate
CPT/HCPCS: 36415; 72148; 84153

== ENCOUNTER → 2020-04-07 10:14 | Outpatient (CLI) | payer MEDICARE, SELFPAY ==
[2020-04-07 12:23] LABS: Absolute Lymphocyte Count 1.75 X10^3/uL (0.83-4.51); Absolute Neutrophil Count 3.5 X10^3/uL (2.0-7.7); Basophil# 0.03 X10^3/uL; Basophil% 0.5 % (0-1); Eosinophils% 1.7 % (0-5); Hematocrit 43.7 % (40-54); Hemoglobin 14.1 g/dL (13.0-16.5); Lymphocyte # 1.75 X10^3/ul (4.0); Lymphocyte % 28.9 % (19-41); Mean Corp Hgb Conc 32.3 g/dL (32-36); Mean Corpuscular Hgb 28.1 pg (27.0-32.0); Mean Corpuscular Volume 87.1 fL (80-94); Mean Platelet Vol. 10.2 fl (6.2-12.0); Monocyte# 0.61 X10^3/uL; Monocyte% 10.1 % (0-10); NRBC Flagged by Analyzer 0 % (0-5); Neutrophil # 3.54 X10^3/uL (2.7-7.7); Neutrophil % 58.5 % (47-70); Platelet Count 237 K/mm3 (150-450); RBC Distribution Width CV 14.5 % (11.6-14.6); RBC Distribution Width SD 46.5 fl (35.1-43.9); Red Blood Count 5.02 M/mm3 (4.6-6.2); White Blood Count 6.1 K/mm3 (4.4-11.0)
[2020-04-07 12:48] LABS: ALB/GLOB Ratio 0.9 RATIO (0.9-2.4); AST(SGOT) 22 U/L (15-37); Alanine Aminotransfer ALT/SGPT 20 U/L (16-61); Albumin, Serum 3.4 g/dL (3.2-5.0); Alkaline Phosphatase 90 U/L (45-117); Anion Gap 5 (5-15); BUN 14 mg/dL (7-18); BUN/Creat Ratio 16.9 RATIO (10-20); Chloride 107 mmol/L (98-107); Creatinine, Serum 0.83 mg/dL (0.70-1.30); EST Glomerular Filtration Rate 96 mL/min (>60); Est Glom Filt Rate - Afr Amer 116 mL/min (>60); Globulin 3.9 g/dL (2.2-4.2); Glucose 89 mg/dL (74-106); Potassium 4.4 mmol/L (3.5-5.1); Protein, Total 7.3 g/dL (6.4-8.2); Sodium Level 137 mmol/L (136-145); Thyroid Stim Hormone (TSH) 2.14 uIU/mL (0.358-3.74); Uric Acid 4.6 mg/dL (3.5-7.2)
[2020-04-07 12:57] LABS: Vitamin D,25 Hydroxy 29.1 ng/mL
== END ==
PROVIDERS: PCP Family Medicine Geriatric Medicine; Visit Provider Family Medicine Geriatric Medicine
DX: M10.9 Gout, unspecified (principal); E55.9 Vitamin D deficiency, unspecified; R53.83 Other fatigue
CPT/HCPCS: 36415; 80053; 82306; 84443; 84550; 85025

== ENCOUNTER → 2020-10-12 11:03 | Outpatient (CLI) | payer MEDICARE, SELFPAY ==
[2020-10-12 11:56] LABS: Absolute Lymphocyte Count 1.91 X10^3/uL (0.83-4.51); Absolute Neutrophil Count 3.3 X10^3/uL (2.0-7.7); Basophil# 0.05 X10^3/uL; Basophil% 0.8 % (0-1); Eosinophil# 0.17 X10^3/uL; Eosinophils% 2.8 % (0-5); Hemoglobin 14.1 g/dL (13.0-16.5); Lymphocyte # 1.91 X10^3/ul (0.83-4.51); Lymphocyte % 31.6 % (19-41); Mean Corp Hgb Conc 31.3 g/dL (32-36); Mean Corpuscular Volume 86.2 fL (80-94); Mean Platelet Vol. 10.7 fl (6.2-12.0); Monocyte# 0.62 X10^3/uL; Monocyte% 10.3 % (0-10); NRBC Flagged by Analyzer 0 % (0-5); Neutrophil # 3.26 X10^3/uL (2.7-7.7); Platelet Count 225 K/mm3 (150-450); RBC Distribution Width CV 14.7 % (11.6-14.6); RBC Distribution Width SD 46.7 fl (35.1-43.9); Red Blood Count 5.22 M/mm3 (4.6-6.2)
[2020-10-12 12:12] LABS: Vitamin D,25 Hydroxy 23.5 ng/mL
[2020-10-12 12:22] LABS: ALB/GLOB Ratio 1.1 RATIO (0.9-2.4); AST(SGOT) 21 U/L (15-37); Alanine Aminotransfer ALT/SGPT 19 U/L (16-61); Albumin, Serum 3.7 g/dL (3.2-5.0); Alkaline Phosphatase 104 U/L (45-117); Anion Gap 6 (5-15); BUN 17 mg/dL (7-18); BUN/Creat Ratio 22.1 RATIO (10-20); Calcium,Total 8.8 mg/dL (8.5-10.1); Chloride 105 mmol/L (98-107); Creatinine, Serum 0.77 mg/dL (0.70-1.30); EST Glomerular Filtration Rate 104 mL/min (>60); Est Glom Filt Rate - Afr Amer 125 mL/min (>60); Globulin 3.3 g/dL (2.2-4.2); Glucose 85 mg/dL (74-106); Potassium 4.4 mmol/L (3.5-5.1); Sodium Level 139 mmol/L (136-145); Thyroid Stim Hormone (TSH) 3.31 uIU/mL (0.358-3.74)
== END ==
PROVIDERS: PCP Family Medicine Geriatric Medicine; Visit Provider Family Medicine Geriatric Medicine
DX: E55.9 Vitamin D deficiency, unspecified (principal); R53.83 Other fatigue
CPT/HCPCS: 36415; 80053; 82306; 84443; 85025

== ENCOUNTER → 2021-01-11 12:16 | Outpatient (CLI) | payer MEDICARE, SELFPAY ==
[2021-01-11 13:19] LABS: PSA,Total- Diagnostic 0.14 ng/mL (0.0-4.0)
== END ==
PROVIDERS: PCP Family Medicine Geriatric Medicine; Referring Provider Urology; Visit Provider Urology
DX: C61 Malignant neoplasm of prostate (principal)
CPT/HCPCS: 36415; 84153

== ENCOUNTER → 2021-01-26 15:02 | Outpatient (CLI) | payer MEDICARE, SELFPAY | PROVIDERS: PCP Family Medicine Geriatric Medicine; Visit Provider Urology | DX: C61 Malignant neoplasm of prostate (principal) | CPT/HCPCS: 36415; 84403 ==

== ENCOUNTER → 2021-02-01 11:26 | Outpatient (CLI) | payer MEDICARE, SELFPAY ==
--- NOTE | 2021-02-01 11:28 | VDLE_ITS ---
Reason For Study: EDEMA RIGHT GSV is normal. CFV is compressible, spontaneous, phasic, competent and demonstrates normal augmentation. FV is compressible, spontaneous, phasic, competent and demonstrates normal augmentation. POP V is compressible, spontaneous, phasic, competent and demonstrates normal augmentation. T/P Trunk is compressible. PTV is compressible. RT PerV is compressible. Procedure Exam performed in department. A preliminary report was called and/or faxed to DR WALKER. VL/Venous Duplex US, Unilateral Interpretation Summary There is no evidence of right lower extremity deep vein thrombosis. Right great saphenous vein appears patent and compressible segmentally. Ordering Physician: Sandip Walker Referring Physician: Sandip Walker Chi Performed By: Liliane Reyes, RDCS, RVT
== END ==
PROVIDERS: PCP Family Medicine Geriatric Medicine; Referring Provider Family Medicine Geriatric Medicine; Visit Provider Family Medicine Geriatric Medicine
DX: R60.0 Localized edema (principal)
CPT/HCPCS: 93971

== ENCOUNTER → 2021-02-01 12:07 | Outpatient (CLI) | payer MEDICARE, SELFPAY ==
[2021-02-01 19:50] LABS: M R Staph aureus DNA By PCR Negative (Negative); Probe Check PASS; Specimen Processing Control PASS; Staph aureus DNA By PCR NEGATIVE (Negative)
== END ==
PROVIDERS: PCP Family Medicine Geriatric Medicine; Visit Provider Family Medicine Geriatric Medicine
DX: R60.0 Localized edema (principal); B95.62 Methicillin resistant Staphylococcus aureus infection as the cause of diseases classified elsewhere
CPT/HCPCS: 87070; 87077; 87186; 87205; 87640; 93971

== ENCOUNTER → 2021-02-03 10:38 | Outpatient (CLI) | payer MEDICARE, SELFPAY ==
[2021-02-03 13:06] LABS: Absolute Lymphocyte Count 1.75 X10^3/uL (0.83-4.51); Absolute Neutrophil Count 4.4 X10^3/uL (2.0-7.7); Basophil# 0.04 X10^3/uL; Basophil% 0.6 % (0-1); Eosinophil# 0.14 X10^3/uL; Hematocrit 44.1 % (40-54); Hemoglobin 14.2 g/dL (13.0-16.5); Lymphocyte # 1.75 X10^3/ul (0.83-4.51); Lymphocyte % 24.8 % (19-41); Mean Corp Hgb Conc 32.2 g/dL (32-36); Mean Corpuscular Hgb 28.2 pg (27.0-32.0); Mean Corpuscular Volume 87.5 fL (80-94); Mean Platelet Vol. 10.8 fl (6.2-12.0); Monocyte# 0.73 X10^3/uL; Monocyte% 10.3 % (0-10); NRBC Flagged by Analyzer 0 % (0-5); Neutrophil # 4.36 X10^3/uL (2.7-7.7); Neutrophil % 61.6 % (47-70); Platelet Count 208 K/mm3 (150-450); RBC Distribution Width CV 15.2 % (11.6-14.6); RBC Distribution Width SD 48.3 fl (35.1-43.9); Red Blood Count 5.04 M/mm3 (4.6-6.2); White Blood Count 7.1 K/mm3 (4.4-11.0)
[2021-02-03 13:15] LABS: Anion Gap 4 (5-15); BUN 20 mg/dL (7-18); BUN/Creat Ratio 26.6 RATIO (10-20); Calcium,Total 9.3 mg/dL (8.5-10.1); Chloride 108 mmol/L (98-107); Creatinine, Serum 0.75 mg/dL (0.70-1.30); EST Glomerular Filtration Rate 107 mL/min (>60); Est Glom Filt Rate - Afr Amer 129 mL/min (>60); Glucose 85 mg/dL (74-106); Potassium 4.7 mmol/L (3.5-5.1); Sodium Level 138 mmol/L (136-145)
== END ==
PROVIDERS: PCP Family Medicine Geriatric Medicine; Visit Provider Family Medicine Geriatric Medicine
DX: Z01.810 Encounter for preprocedural cardiovascular examination (principal)
CPT/HCPCS: 36415; 80048; 85025

== ENCOUNTER 2021-03-08 06:22 | Observation (INO) | payer MEDICARE, SELFPAY ==
--- NOTE | 2021-02-21 22:10 | PCM.HP.BLA ---
History and Physical History and Physical [facility] Patient Name: Madhu Barraza : 1940 From: JOHNNA ALFRED PA-C DATE OF SURGERY: 03/08/2021 SCHEDULED PROCEDURE: left total hip arthroplasty HISTORY OF PRESENT ILLNESS: Preoperative history and physical exam was performed on February 20, 2021. This is a 81-year-old male who has been having ongoing bilateral hip pain for the past couple years. Pain can reach as high as an 8/10 with activities. He is complaining of bilateral groin pain. Patient's pain has been constant and aching. Pain is increased with going up and down stairs and walking. Patient also has pain associated with activities of daily living including housework and shopping. Patient has tripped/stumbled due to the pain. Climbing ladders has been difficult and he feels unsafe doing. He has tried rest and heat and previous cortisone injection with no relief in symptoms. He has been followed by pain management. He has been through physical therapy in the past and home exercises with no relief in symptoms. He has been taking Celebrex with minimal relief. Patient denies previous surgery on bilateral hips. He uses a cane for ambulatory assistance over the past 2 years. He has also tried a TENS unit. Patient has a medical history pertinent for previous prostate cancer in 2007, gastroesophageal reflux disease, previous blood clot in the leg as well as pulmonary embolism. He is currently on Coumadin and followed by his primary care physician Dr. Walker. Patient saw dishwasher busser many years ago but was discharged and told to follow-up with primary care physician. Patient currently denies any chest pain, shortness of breath, fevers chills or recent infections. He had recent lab work and EKG by the primary care physician. After failing conservative measures and discussing all treatment options with Dr. Tj Dorado, the patient does wish to proceed with a left total hip arthroplasty. We are requesting from the primary care physician perioperative management of the Coumadin. REVIEW OF SYSTEMS: ROS: Const: Denies anorexia, anxiety, change in appetite, fever, difficulty sleeping, weight change. CV: Denies chest pain, heart murmur, irregular heartbeat and peripheral vascular disease. Resp: Denies asthma, cough, pneumonia, sleep apnea, shortness of breath, tuberculosis and wheezing. GI: Denies constipation, diarrhea, heartburn, nausea, rectal itching, bloody stools and vomiting. : Denies incontinence. Musculo: Denies leg swelling, pain, trouble walking and weakness. Skin: Denies Raynaud's, history of shingles and tattoo. Neuro: Denies ambulatory dysfunction, dizziness, numbness/tingling and tremor. Psych: Denies anxiety, depression, insomnia, mental illness and stress. Hieu/Lymph: Denies anemia, bleeding/bruising tendency and past transfusion. Reviewed, no changes. PAST MEDICAL HISTORY: Advance Care Plan: No Advance Directives Effective Date: 11/19/2019 PMH: Medical Problems: Prostate Cancer - (2007) DVT - history of blood clots following surgery Gastroesphogeal reflux disease Accidents: None Surgical Hx: Fistula, Kidney Stones Heart Cath - (2006) Repair Right Quad - JWG 2008 Cataracts - (02/27/2021) LT EYE Anesthesia Complications: None Assistive Devices: Glasses, Dentures Reviewed and updated. SOCIAL HISTORY: SH: Marital: .Occupation: Retired.Work Status: Retired.Hand Dominance: Right-Handed. Personal Habits: Cigarette Use: Currently smokes - PIPE.Smokeless Tobacco: Never Used Smokeless Tobacco.E-Cigarette Use: Never used.Alcohol: Denies use.Drug Use: Denies Use.Enjoy Exercising: Never Exercises. Reviewed, no changes. VITALS: Ht: 67.2 Wt: 167lb Wt k.751 BMI: 26.0 BP: 132/74 Pulse: 68 Resp: 14 T: 98.3 T: 36.8C Pain Level: 8 ALLERGIES: IVP Contrast Shellfish-Derived Products Prednisone Keflex Cipro Ivpdye MEDICATIONS: Warfarin Sodium 4 mg 4.5-5 qday, Famotidine 20 mg 1 by mouth every day, Celebrex 200 mg 1 by mouth every day, Stool Softener 100 mg 1 cap by mouth twice a day, Levothyroxine Sodium 50 mcg, Vitamin D3 25 mcg (1000 Ut) 2 by mouth every day, Oxybutynin Chloride ER 10 mg 1 by mouth every day, Diclofenac Sodium 1 % apply 2-4 times daily over affected area, Boost Protein Shake 1 shake qday PRE-OP EXAM: General appearance:NORMAL Other: Eyes: Conjunctivae and lids: NORMAL Pupils: ERR Ears, Nose, Mouth, and Throat: NORMAL Other: Inspection of lips, teeth and gums: NORMAL Other: Neck: Examination of neck: no masses noted. Respiratory: Assessment of respiratory effort: NORMAL Other: Auscultation of lungs: clear to auscultation no wheezes, rhonchi or rales. Cardiovascular: Auscultation of heart: regular rate and rhythm, positive systolic murmurs. PHYSICAL EXAMINATION: Patient walks with an antalgic gait. Patient does have bilateral groin pain. Right hip flexion 80 with internal rotation to neutral next our rotation 15. Left hip flexion 65 with obligatory external rotation, internal rotation 10, external rotation 20. He gets bilateral crepitus in both hips. Has a 20 flexion contracture of the left knee. Sensation intact to light touch. Neurovascularly intact. IMAGING STUDIES: Previous x-rays of the left hip reveal joint space narrowing with subchondral sclerosis, osteophyte formation consistent with severe osteoarthritis with evidence of cystic collapse of the femoral head and large acetabular cyst with shortening of the extremity. X-rays of the right hip reveal joint space narrowing with subchondral sclerosis and osteophyte formation consistent with severe osteoarthritis with evidence of cystic collapse of the femoral head and large acetabular cyst with shortening of the extremity. IMPRESSION: 1. Severe left hip osteoarthritis 2. Severe right hip osteoarthritis 3. History of DVT and pulmonary embolism: Currently on Coumadin 4. Estrogen esophageal reflux disease 5. History of prostate cancer PLAN: Dr. Tj Dorado did discuss and review with the patient all treatment options including surgical versus nonsurgical options. Patient does wish to proceed with the above-stated procedure. Potential risks, benefits, and complications of the procedure were discussed in detail including but not limited to , infection, nerve and blood vessel damage, persistent pain, numbness, tingling, paresthesias, blood clot, pulmonary embolism, and requirement for possible further surgery. The patient expressed full understanding and has no further questions for the doctor. Patient does agree to proceed with the above-stated procedure and has signed the surgery consent form. We discussed the current risks associated with COVID 19. This does include the risk of exposure while in the hospital. Patient was reassured local hospitals have low infection rates and are taking all necessary precautions to avoid exposure to patients. In addition, we discussed strategies that can be used to help limit exposure including those that limit the patient's time in the hospital. Also using strategies to limit the patient's need for continued inpatient services after being discharged from the hospital. Patient was notified that we will need to comply with any screening or testing the hospital wishes to perform or that surgery may be delayed for any positive results. This dictation was created using voice recognition software. Phonetic and/or grammatical errors may exist. ___ I have re-examined the patient. There are no clinical changes since date of exam. ___ See progress notes for changes. ___ Dictated on admission Date: Time: Signature:
[2021-02-24 17:33] LABS: Magnesium 1.9 mg/dL (1.6-2.6); Thyroid Stim Hormone (TSH) 1.97 uIU/mL (0.358-3.74)
[2021-03-08] VITALS (35 sets, daily range): BP systolic 95–147; BP diastolic 53–81; PULSE 54–89; RESP 12–26; TEMP 36–37.1; O2SAT 93–100; BMI 25.7
[2021-03-08] MEDS: Lactated Ringers 1,000 ML 100 ML IV (05:45)
[2021-03-08 06:16] LABS: INR Fingerstick 1.4; Prothrombin Time Fingerstick 16.6 SEC (11.9-14.4)
[2021-03-08] MEDS: Acetaminophen 500 MG Tablet 1000 MG PO ×2 (06:35→21:04)
[2021-03-08] MEDS: Gabapentin 600 MG Tablet PO (06:35)
--- NOTE | 2021-03-08 06:36 | OP.PCM_ITS ---
Report of Operation Date of Procedure: 03/08/21 Pre-Operative Diagnosis: Left hip primary osteoarthritis Post-Operative Diagnosis: Left hip primary osteoarthritis Surgery/Procedure Performed:: Left minimally invasive direct anterior hip replacement Description of Surgical Findings:: Stable hip with restored leg lengths. Patient had bilateral limb shortening secondary to femoral head collapse bilaterally. Based on this at completion of case the left leg was made slightly longer than the right due to attempted mosque of hip mechanics. Surgeon: Tj Dorado soaping machine back tender: David Hogan Type of Anesthesia: Spinal Special Medications: 2 g Ancef, 2 g TXA lavage prior to closure, 10 mg Decadron, joint cocktail (5 mg Duramorph, 30 mL of 0.5% Ropivicaine, 1000 units of epinephrine, 30 mg of Toradol) Specimen's removed: Bony cuts Estimated Blood Loss (mL): 200 Fluids Replaced: 1300 ML crystalloid Description of Procedure: Components used: 1. Accolade 2 [place] femoral stem size 5 127? 2. Genesis trident 2 acetabular shell size 56 mm 3. [place] X3 polyethylene F 4. [place] Biolox delta 36mm, 0mm femoral head Brief history operative indications: 81 yo M who failed conservative measures for their hip osteoarthritis. X-rays were consistent with osteoarthritis including joint space narrowing, osteophyte formation and subchondral cysts. Total hip replacement was discussed with the patient with risks and benefits including but not limited to blood loss, DVTs, PEs, neurovascular damage, dislocation, general risks of anesthesia including loss of life. Patient demonstrated an understanding medical clearance is obtained the patient was consented for surgery. Procedure: On the date of procedure the patient's L hip was marked in the preoperative area. Patient was then taken back to the operating room where anesthesia assumed control of the C-spine and airway and administered anesthetic. Patient was transferred to the operating table and placed in the supine position. The hips were placed at the break of the bed and a sacral bump was placed. L The lower extremity was then prepped out in a sterile fashion using chlorhexidine while the surgeon scrubbed. The PA was vital in the positioning of the patient. Upon reentering the room the left lower extremity was draped in the standard orthopedic fashion and the incision was marked. A timeout was called and everyone agreed upon the side, the site, the procedure be performed, antibody given, and patient's identity. At this time incision was made through skin, subcutaneous tissue, and fat down to fascia. The fascia was then incised and the TFL was retracted laterally. A retractor was placed on the lateral border of the femoral neck. Attention was directed to the inferior portion of the approach and all crossing vessels were identified and appropriately coagulated. A retractor was then placed on the medial portion of the femoral neck. The anterior capsule was then cleared of all soft tissue and then H shaped capsuloto my was made. The retractors were then placed inside the capsule. The femoral neck was identified and a cleanup cut was made. At this time a power corkscrew was used to remove the femoral head. Attention was then turned toward the acetabulum where the soft tissues were appropriately retracted and the acetabulum was sequentially reamed to 56 mm. Bone graft from the reaming was impacted into the acetabular cyst after debriding it of synovial tissue. A 56 mm cup was then selected and impacted into place. 1, 40 mm screw was placed in the safe zone acetabular liner was impacted into place and locking mechanism was verified. The position of the acetabular cup was then verified under live fluoroscopy. Attention was then turned to the femur. Soft tissue releases on the medial and lateral femoral neck were appropriately done, the leg was externally rotated and lateralized. A Cazares retractor was placed medially and proximally to the greater trochanter this allowed appropriate visualization and exposure of the femoral canal. Rongeour was then used to remove excess lateral bone. A canal finder and entry broach were used to open the proximal canal. Once we verified we were down the femoral canal we subsequently broached up to a size 5 femur. The appropriate neck was placed in the previously selected head was trialed with a 0 mm neck. Traction was pulled and the hip was reduced with internal rotation. Once it was appropriately reduced and stability was checked. There was minimal shuck, equal leg lengths and appropriate stability with hyperextension and external rotation as well as with 90? flexion and internal rotation. Fluoroscopy was then also used to verify the position of the components and leg lengths using the contralateral side for comparison. Contralateral limb had femoral head collapse and limb shortening. Based on this we attempted to restore hip mechanics. This did require the left leg being slightly longer than the right based on anticipated mosque of the contralateral side. The trial components were then dislocated the proximal femur was again exposed and the components were removed from the wound. The final components were verified and opened. The wound was copiously irrigated out with normal saline. The acetabulum was checked for any residual debris. The final components were placed and impacted. Traction and internal rotation were again used to reduce the hip. After adequate reduction the hip remained stable with appropriate leg lengths. The final components were once again checked with live fluoroscopy and were found to be satisfactory. The wound was then copiously irrigated with normal saline once more, and hemostasis was obtained. Closure was then done using #1 Vicryl runner to close the fascia. A 2-0 vicryl interuppted sutures were used to close the subcutaneous skin. A 3-0 Monocryl and Steri-Strips were used for final skin closure. A Silverlon dressing was placed. Patient was awakened by anesthesia and transferred to the [facility]. Patient was then transferred to the PACU for recovery. During the course of the procedure the physician school bus attendant (PE) played a vital role. Their intimate knowledge of my steps in the procedure aided in safe and expedient completion of the procedure. The PE played a vital rolls in positioning particularly in obtaining the appropriate positioning of the sacral bump. The PE was also vital in the retraction of soft tissues during the exposure and especially the femoral work as this is a vital part of the procedure to prevent complications and fractures. The PE was also vital and protecting soft tissues during times of bony cuts and reaming. He also played a vital role in closure with my direct supervision. The PE was also important during reduction and dislocation of the joint and trials intraoperatively. Postoperative plan: Patient will get 24 hours postop antibiotics. Patient will get in-house physical therapy and will be weight-bear as tolerated. Patient will follow up in office in 2 weeks for a wound check and x-rays. Patient will resume therapeutic Coumadin postoperatively this will be sufficient for DVT prophylaxis. Complications No intraoperative complications Admit VTE Documentation VTE Present on Admission: No VTE Mechan Device Prophylaxis: SCD's and Thigh High JAVIER Hose VTE Pharm Prophylaxis ordered?: Yes
[2021-03-08 06:40] LABS: International Normalized Ratio 1.1; Prothrombin Time (Protime)PT. 13.1 SECONDS (11.7-14.9)
[2021-03-08 07:01] LABS: Bedside Glucose 80 mg/dL (70-110)
[2021-03-08] MEDS: Celecoxib 200 MG Capsule 400 MG PO (07:05)
[2021-03-08] MEDS: Cefazolin 2 GM in 0.9% Normal Saline 100 ML IV (07:28)
--- NOTE | 2021-03-08 08:17 | RAD_ITS ---
STUDY: X-RAY - PELVIS AND LEFT HIP REASON FOR EXAM: Postoperative evaluation of left hip arthroplasty. TECHNIQUE: 2 views of the pelvis and hip. COMPARISON: Radiographs 06/16/2019. FINDINGS: There is postoperative gas in the soft tissues. Normal bilateral superior and inferior pubic rami. Normal pubic symphysis. Normal bilateral ischial tuberosities. There is a left hip arthroplasty without evidence of complication. RAD/Hip Min 2 Views (Portable) IMPRESSION: Uncomplicated left hip arthroplasty. Electronically Signed: Elliot Jo MD at 10:24 EDT Tel , Service support ,
--- NOTE | 2021-03-08 08:20 | RAD_ITS ---
STUDY: X-RAY - PELVIS AND LEFT HIP REASON FOR EXAM: Intraoperative fluoroscopy for left hip arthroplasty. TECHNIQUE: 3 intraoperative images of the pelvis and hip. COMPARISON: Radiographs 06/16/2019. FINDINGS: There is a left hip arthroplasty without evidence of complication. 3.9 seconds of fluoroscopy time was used. Electronically Signed: Elliot Jo MD at 10:31 EDT Tel , Service support , RAD/Hip 1 view with Pelvis
[2021-03-08] MEDS: Lactated Ringers 1,000 ML 999 ML IV (09:20)
[2021-03-08] MEDS: Lactated Ringers 1,000 ML 125 ML IV ×2 (10:55→14:14)
--- NOTE | 2021-03-08 13:37 | NURSING ---
phone call placed to 's office, requesting living will and POA paperwork if they have.
[2021-03-08] MEDS: Naloxone 0.4 MG/ML Syringe 0.2 MG IV ×2 (13:40→13:45)
--- NOTE | 2021-03-08 13:42 | NURSING ---
at bedside. ordered narcan 0.2mg iv.
[2021-03-08 13:45] LABS: Blood Gas Specimen Type VEN; O2 Delivery Device BiPAP; SITE R Brach; VBG BASE EXCESS -1 mmol/L (-1.0-3.5); VBG Bicarbonate 28 mmol/L (22-26); VBG PO2 183 mmHg (25-40); VBG SO2 99 % (50-70); VBG TCO2 30 mmol/L (23-33); VBG pCO2 72.5 mmHg (41-51); VBG pH 7.19 (7.32-7.42)
--- NOTE | 2021-03-08 13:45 | NURSING ---
0.2mg Narcan 1st dose given at 1340 by Rahel DEL REAL [id number] 0.2mg Narcan-2nd dose given by this nurse verified w/ Rahel DEL REAL
--- NOTE | 2021-03-08 13:50 | NURSING ---
called report to icu. t transfered to icu, sig other taken down via w/c. dr alva at bedside.
--- NOTE | 2021-03-08 13:50 | NURSING ---
pt being transerred to ICU 2. friend at bedside. pt more arrousable at this time. eyes now spontanesously opening. friend did get to see him prior to transport. cps and primary RN with pt
[2021-03-08] MEDS: Cefazolin 1 GM/50 ML BAG IV ×2 (14:14→23:47)
--- NOTE | 2021-03-08 14:22 | CON.PCM.CC_ITS ---
Assessment & Plan Assessment/Plan (1) Acute hypercapnic respiratory failure: PLAN: RECOMMENDATIONS: 1. Continue AVAPS for least 3 hours 2. No further Narcan needed 3. Judicious use of pain medications 4. Okay to continue other supportive measures 5. Okay to ambulate after 5 PM IMPRESSIONS: 1. Acute hypercarbic respiratory failure secondary to probable anesthesia Patient's baseline bicarbonate was within normal limits. Low clinical suspicion for CO2 retention at baseline. Patient did receive significant fentanyl after leaving PACU. Patient responded to Narcan. Significant respiratory acidosis noted on VBG. Patient will have 2 to 3 hours for metabolism of narcotics. No further doses of Narcan will be needed. We will continue AVAPS to support respiratory drive. Monitoring in the intensive care unit, but doubt intubation will be required. 2. Left hip arthroplasty POD #0 Orthopedics is following. Patient can likely continue with supportive measures for now. Once patient's mentation is back to baseline, okay to ambulate from my perspective. Reinitiation of anticoagulation per orthopedic surgery. Patient does have a history of DVT and PE, so reinitiation will be necessary. 3. History of prostate cancer/history of DVT/GERD/decreased vision/advanced age Complicates care, management, recovery and prognosis. Patient will be at risk for development of delirium. Recommend nursing protocol. Will replace glasses once BiPAP is completed. HPI Consult Data Date of Consult: 03/08/21 HPI Narrative HPI Narrative: TYLER PELAEZ is a 81 M, with past medical history listed below, who presents to [facility] on 03/08/2021 secondary to elective left hip arthroplasty. Patient reportedly has had ongoing bilateral hip pain for several years the reaches as high as 8 out of 10 with activity. Patient has not previously required any hip surgery. Patient tolerated ambulation preoperatively with a cane. Patient does take Coumadin secondary to history of DVT and PE. Patient reportedly had surgery without complication. No acute issues were reported. Patient was given 100 mcg of fentanyl prior to being sent to the general medical floor for recovery. The hospitalist was called secondary to decreased responsiveness. On her evaluation, the patient was very difficult to arouse. A VBG was obtained showing 7.19/72.5/183/99%. Patient was given a total of 4 mg of Narcan. Patient was placed on AVAPS and transferred to the intensive care unit immediately. Initially upon arrival to the intensive care unit, patient was difficult to arouse. Patient had been on AVAPS for approximately an hour prior to my evaluation. With stimulation of moving the patient to the ICU bed, patient opened his eyes. Patient continues to have pinpoint pupils, but was able to tell me his name, location and that he was here for hip surgery. Patient significant other was in the waiting room and was updated on his condition. She was very tearful as she had stated that she had lost her 11 years ago after surgery and she never got to see him a life again. She was brought back to the room and the patient was able to recognize her. Patient does state that he has been a smoker in the past, but has never been diagnosed with COPD. Patient states he tends to use pipes as his tobacco delivery of choice. Patient denies any alcohol or drugs. Patient does not use any inhalers at baseline. A full review of systems was unable to be obtained secondary to acute condition. [facility] Medical History (Updated 03/08/21 @ 14:[address] Leonel Bullock MD) Ambulates with cane Arthritis Back pain Cancer Discoloration of skin DVT (deep venous thrombosis) Gastric reflux High cholesterol History of edema History of pain when walking History of steroid therapy History of stress test Kidney stones Pulmonary embolism Smoker Thyroid disease Wears dentures Wears glasses Home Medications celecoxib 200 mg PO DAILY 02/23/21 [History Last Taken Unknown] cholecalciferol (vitamin D3) [Vitamin D3] 25 mcg PO DAILY 02/23/21 [History Last Taken Unknown] diclofenac sodium 1 ea TOPICAL PRN PRN 02/23/21 [History Last Taken Unknown] docusate sodium 100 mg PO DAILY 02/23/21 [History Last Taken Unknown] famotidine 20 mg PO DAILY 02/23/21 [History Last Taken Unknown] food supplemt, lactose-reduced [Boost] 8 ml PO DAILY 02/23/21 [History Last Taken Unknown] levothyroxine [Euthyrox] 50 mcg PO DAILY 02/23/21 [History Last Taken Unknown] oxybutynin chloride 10 mg PO DAILY 02/23/21 [History Last Taken Unknown] warfarin 5 mg PO DAILY 02/23/21 [History Last Taken Unknown] Allergy/AdvReac Type Severity Reaction Status Date / Time cephalexin [From Keflex] Allergy Rash Verified 03/08/21 06:26 ciprofloxacin [From Cipro] Allergy Rash Verified 03/08/21 06:26 Gadolinium-MRI Contrast Allergy Rash Verified 03/08/21 06:26 Medium [DYE] prednisone Allergy Rash Verified 03/08/21 06:26 shellfish derived Allergy Rash Verified 03/08/21 06:26 Surgical History (Updated 02/23/21 @ 14:36 by Deepa Quintanilla) History of cardiac catheterization History of coronary artery stent placement Hx of colonoscopy Hx of cystoscopy Hx of knee surgery Social History Smoking Status: Current some day smoker tobacco type: pipe ROS ROS Narrative See HPI Physical Exam Const alert, oriented x3 and no apparent distress Constitutional Narrative: On AVAPS. HEENT normocephalic HEENT Narrative: Dry mucosal membranes. Eyes PERRL and EOMs intact bilaterally Eyes Narrative: Pinpoint pupils Neck full ROM Lymph Lymphatic: no lymphadenopathy noted Resp normal respiratory effort and no use of accessory muscles Effort and Inspection: prolonged expiratory phase; Negative for uses accessory muscles Cardio regular rate, regular rhythm, S1 normal heart sound, S2 normal heart sound, no murmurs, no rub, no gallops and no JVD GI normal to inspection, nondistended, normoactive bowel sounds Extremity no clubbing, cyanosis or edema Extremity Narrative: Left hip dressing is clean, dry and intact Skin no rashes or lesions noted Neuro oriented x3 and moves all extremities Psych Mood & Affect: flat affect Lab / Micro Data Labs: Laboratory Results - last 24 hr 03/08/21 06:09: POC Glucose 80 03/08/21 06:13: POC PT 16.6 H, INR 1.4 03/08/21 06:16: PT 13.1, INR 1.1 ABG Data ABG results: ABG 03/08/21 13:32 Specimen Type KAMRAN Sample Site R Brach VBG pH 7.19 L* VBG pO2 183 H VBG HCO3 28 H VBG Total CO2 30 VBG O2 Sat (Calc) 99 H VBG Base Excess -1 POC Mix VBG pCO2 Pt Tmp 72.5 H* O2 Delivery Device BiPAP Crit Call To/Read Back Yes Blood Gas Notified Whom dr alva Blood Gas Notified Time 13:36:16 Clinical Comments bipap 16/8 50% Radiology Impression Hip X-Ray 03/08/21 08:17 IMPRESSION: Uncomplicated left hip arthroplasty. Electronically Signed: Elliot Jo MD at 10:24 EDT Tel , Service support , Charges/Coding Visit Charges Inpatient E&M: 64567 Init Hosp L3
[2021-03-08] MEDS: Ensure Surgery 237 ML LIQUID PO (17:15)
--- NOTE | 2021-03-08 17:35 | PCM.PN.BLA ---
Progress Note Did receive a message today patient had apnea requiring sternal rubs. He was transferred to the ICU overnight. He is sitting up in bed doing well. He is comfortable at this time. Neurovascularly intact. We will continue to appreciate medical input in their management of medical comorbidities. Overall doing well continue with standard postoperative plan for left total hip.
--- NOTE | 2021-03-08 17:57 | PCM.PN.HOSP ---
Subjective Subjective Mr. Barraza is a 81-year-old white male who presented to the hospital on 03/08/2021 for an elective left total hip arthroplasty. The patient has had ongoing bilateral hip pain for approximately 2 years and is having ongoing groin pain. He had been reporting the pain was constant and aching and worse with activity as well as limiting him from ADLs. He has tried rest, heat, and cortisone injections with no relief and has been followed by pain management. He has undergone physical therapy in the past with home exercises and had no relief with this either. He has been using a cane for ambulatory assistance in the last 2 years. I was called in the postoperative period as the patient was fairly obtunded and only waking to sternal rub. It was noted he received 100 of fentanyl prior to transfer to PACU from the OR. He had not received any medications in the OR. Respiratory therapy is at the bedside obtaining a blood gas that I have ordered and he has been placed on BiPAP but is still having apneic episodes and therefore I have placed him on AVAPS mode of noninvasive ventilation. Objective Data Objective Data Vital Signs: Vital Signs Temp Pulse Resp BP Pulse Ox 97.4 F L 63 17 124/79 H 96 03/08/21 14:05 03/08/21 16:40 03/08/21 16:00 03/08/21 16:00 03/08/21 16:11 Oxygen Flow Rate (L/min) 3 Oxygen Delivery Method Nasal Cannula Weight: 77.8 kg Body Mass Index (BMI) 25.7 Intake & Output: Intake and Output for Last 24 Hours 03/06/21 03/07/21 03/08/21 23:59 23:59 23:59 Intake Total 3057.41 / 3057.41 Balance 3057.41 / 3057.41 Lab / Micro Data Labs: Laboratory Results - last 24 hr 03/08/21 06:09: POC Glucose 80 03/08/21 06:13: POC PT 16.6 H, INR 1.4 03/08/21 06:16: PT 13.1, INR 1.1 Micro: Microbiology 03/01/21 14:00 Interface Orders SARS-CoV-2 Antigen (Rapid) - Final 02/24/21 16:08 Swab (Method) Nasal Screen MRSA/MSSA - Final ABG Data ABG results: ABG 03/08/21 13:32 Specimen Type KAMRAN Sample Site R Brach VBG pH 7.19 L* VBG pO2 183 H VBG HCO3 28 H VBG Total CO2 30 VBG O2 Sat (Calc) 99 H VBG Base Excess -1 POC Mix VBG pCO2 Pt Tmp 72.5 H* O2 Delivery Device BiPAP Crit Call To/Read Back Yes Blood Gas Notified Whom dr alva Blood Gas Notified Time 13:36:16 Clinical Comments bipap 16/8 50% Radiography Diagnostic Testing: Radiology Impression Hip X-Ray 03/08/21 08:17 IMPRESSION: Uncomplicated left hip arthroplasty. Electronically Signed: Elliot Jo MD at 10:24 EDT Tel , Service support , Physical Exam Const Constitutional Narrative: Elderly white male lying in bed obtunded and opens eyes slightly to sternal rub, significant other at bedside Exam Limitations: altered mental status HEENT head/scalp atraumatic and moist oral mucous membranes Head and Scalp: normocephalic Eyes conjunctivae normal Eyes Narrative: Pupils are pinpoint Neck no lymphadenopathy and supple Resp no retractions and no use of accessory muscles Resp Narrative: Few scattered rhonchi anterior right lung but otherwise clear, intermittent periods of apnea Auscultation: rhonchi Cardio regular rate, regular rhythm, S1 normal heart sound, S2 normal heart sound, no murmurs, no rub, no gallops, no clicks and no JVD GI normal to inspection, nondistended, normoactive bowel sounds, soft to palpation, non-tender and non-distended Extremity no clubbing, cyanosis or edema Extremity Narrative: Left lower extremity with polar ice over left hip, JAVIER hose in place bilaterally, dressing intact Skin no rashes or lesions noted, no wounds, skin turgor normal, no jaundice, no petechiae and no mottling Neuro Neuro Narrative: Obtunded, reflexes 2+ bilaterally, no current spontaneous movement but patient did exhibit spontaneous movement of all 4 extremities after Narcan was dosed Psych Psych Narrative: Unable to assess Assessment & Plan Assessment/Plan (1) Acute hypercapnic respiratory failure: (2) Osteoarthritis: PLAN: Acute hypercapnic Respiratory failure secondary to oversedation -Immediate ABG shows an pH of 7.19/PCO2 greater than 70/PO2 greater than 130 -Continue noninvasive ventilation with AVAPS mode -Narcan x4 mg total given at 2 mg increments -Patient is starting to arouse -N.p.o. until more awake and then okay to start p.o. medications and diet -Transfer patient to the ICU for closer monitoring until hypercapnia is resolved -Pulmonary medicine is consulted 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 -Postop day 0 -Pain management per primary service but would hold narcotics at this time -Bowel regimen -Postoperative DVT prophylaxis per primary service -Patient is on Coumadin at baseline and will restart once okay with orthopedic surgery GERD -Continue famotidine Hypothyroidism -Continue levothyroxine Vitamin D deficiency -Continue cholecalciferol Urinary incontinence -Continue oxybutynin History of DVT -Patient has been on Coumadin -Coumadin has been held for approximately 1 week -Restart Coumadin once okay with surgery -We will utilize SCDs at this time History of prostate cancer -No current issues Critical care time greater than 30 minutes excluding procedures Charges/Coding Procedures Hospitalists Procedures: 38692 Critial Care 1st Hr
[2021-03-08] MEDS: Senna/Docusate Sodium 1 Tablet 2 TABLET PO (21:04)
[2021-03-09] VITALS (18 sets, daily range): BP systolic 91–147; BP diastolic 58–76; PULSE 51–78; RESP 16–23; TEMP 36.2–36.6; O2SAT 92–99
--- NOTE | 2021-03-09 02:30 | NURSING ---
Pt having periods of sleep apena. po drop to 72% on ra but then would bounce back into 90s.
[2021-03-09 03:40] LABS: Hematocrit 35.8 % (40-54); Hemoglobin 11.3 g/dL (13.0-16.5); Mean Corp Hgb Conc 31.6 g/dL (32-36); Mean Corpuscular Hgb 28.5 pg (27.0-32.0); Mean Corpuscular Volume 90.4 fL (80-94); Mean Platelet Vol. 10.5 fl (6.2-12.0); Platelet Count 171 K/mm3 (150-450); RBC Distribution Width CV 14.9 % (11.6-14.6); RBC Distribution Width SD 49.3 fl (35.1-43.9); Red Blood Count 3.96 M/mm3 (4.6-6.2); White Blood Count 12.8 K/mm3 (4.4-11.0)
[2021-03-09 04:04] LABS: Anion Gap 6 (5-15); BUN 20 mg/dL (7-18); BUN/Creat Ratio 23.9 RATIO (10-20); Calcium,Total 8.2 mg/dL (8.5-10.1); Chloride 105 mmol/L (98-107); Creatinine, Serum 0.84 mg/dL (0.70-1.30); EST Glomerular Filtration Rate 94 mL/min (>60); Est Glom Filt Rate - Afr Amer 114 mL/min (>60); Estimated Creatinine Clearance 66.67 ml/min; Glucose 109 mg/dL (74-106); Potassium 4.9 mmol/L (3.5-5.1); Sodium Level 139 mmol/L (136-145)
[2021-03-09] MEDS: Acetaminophen 500 MG Tablet 1000 MG PO ×2 (06:02→13:37)
[2021-03-09] MEDS: Levothyroxine 50 MCG Tablet PO (06:02)
[2021-03-09] MEDS: 0.9% Saline Lock 10 ML Syringe IV (06:04)
--- NOTE | 2021-03-09 06:08 | PCM.PN.INT ---
Assessment & Plan Assessment/Plan (1) Acute hypercapnic respiratory failure: PLAN: RECOMMENDATIONS: 1. Increase activity as tolerated 2. No need for walking oximetry prior to discharge 3. Hemodynamically stable on room air. Will sign off from a critical care perspective. No outpatient follow-up indicated IMPRESSIONS: 1. Acute hypercarbic respiratory failure secondary to probable anesthesia Patient's baseline bicarbonate was within normal limits. Low clinical suspicion for CO2 retention at baseline. Patient did receive significant fentanyl after leaving PACU. Patient appears to be doing well from a respiratory standpoint. There is no indication for further BiPAP requirement. Patient can be discharged from a pulmonary perspective. Hemodynamically stable on room air. Will sign off. No outpatient follow-up indicated. 2. Left hip arthroplasty POD #1 Orthopedics is following. Patient can likely continue with supportive measures for now. Okay to ambulate per orthopedic recommendations.. Reinitiation of anticoagulation per orthopedic surgery. Patient does have a history of DVT and PE, so reinitiation will be necessary. 3. History of prostate cancer/history of DVT/GERD/decreased vision/advanced age Complicates care, management, recovery and prognosis. Patient will be at risk for development of delirium. Recommend nursing protocol. Will replace glasses once BiPAP is completed. Subjective Subjective Patient did well overnight. Patient required BiPAP rescue for approximately 4 hours while in the intensive care unit. Patient has been on room air overnight. Patient states his pain is well controlled. Patient is not reporting any nausea or vomiting. Objective Data Objective Data Vital Signs: Vital Signs Temp Pulse Resp BP Pulse Ox 36.6 C 64 18 109/58 L 92 03/09/21 04:00 03/09/21 06:00 03/09/21 06:00 03/09/21 06:00 03/09/21 06:00 Oxygen Flow Rate (L/min) 3 Oxygen Delivery Method Room Air Weight: 81.3 kg Body Mass Index (BMI) 25.7 Intake & Output: Intake and Output for Last 24 Hours 03/07/21 03/08/21 03/09/21 23:59 23:59 23:59 Intake Total 3537.41 / 3537.41 290 / 290 Output Total 600 / 600 800 / 800 Balance 2937.41 / 2937.41 -510 / -510 Lab / Micro Data Result Diagrams: 03/09/21 03:30 03/09/21 03:30 Labs: Laboratory Results - last 24 hr 03/08/21 06:09: POC Glucose 80 03/08/21 06:13: POC PT 16.6 H, INR 1.4 03/08/21 06:16: PT 13.1, INR 1.1 03/09/21 03:30: WBC 12.8 H, RBC 3.96 L, Hgb 11.3 L, Hct 35.8 L, MCV 90.4, MCH 28.5, MCHC 31.6 L, RDW Std Deviation 49.3 H, RDW Coeff of Beverly 14.9 H, Plt Count 171, MPV 10.5 03/09/21 03:30: Sodium 139, Potassium 4.9, Chloride 105, Carbon Dioxide 28.0, Anion Gap 6, BUN 20 H, Creatinine 0.84, Estim Creat Clear Calc 66.67, Est GFR (MDRD) Af Amer 114, Est GFR (MDRD) Non-Af 94, BUN/Creatinine Ratio 23.9 H, Glucose 109 H, Calcium 8.2 L Micro: Microbiology 03/01/21 14:00 Interface Orders SARS-CoV-2 Antigen (Rapid) - Final 02/24/21 16:08 Swab (Method) Nasal Screen MRSA/MSSA - Final ABG Data ABG results: ABG 03/08/21 13:32 Specimen Type KAMRAN Sample Site R Brach VBG pH 7.19 L* VBG pO2 183 H VBG HCO3 28 H VBG Total CO2 30 VBG O2 Sat (Calc) 99 H VBG Base Excess -1 POC Mix VBG pCO2 Pt Tmp 72.5 H* O2 Delivery Device BiPAP Crit Call To/Read Back Yes Blood Gas Notified Whom dr alva Blood Gas Notified Time 13:36:16 Clinical Comments bipap 16/8 50% Radiography Diagnostic Testing: Radiology Impression Hip X-Ray 03/08/21 08:17 IMPRESSION: Uncomplicated left hip arthroplasty. Electronically Signed: Elliot Jo MD at 10:24 EDT Tel , Service support , Physical Exam Const alert, oriented x3 and no apparent distress Constitutional Narrative: On room air. No conversational dyspnea. HEENT normocephalic HEENT Narrative: Moist mucosal membranes. Element of retrognathia appreciated Eyes PERRL and EOMs intact bilaterally Neck full ROM Lymph Lymphatic: no lymphadenopathy noted Resp normal respiratory effort, normal air movement, no retractions and no use of accessory muscles Effort and Inspection: Negative for uses accessory muscles Cardio regular rate, regular rhythm, S1 normal heart sound, S2 normal heart sound, no murmurs, no rub, no gallops and no JVD GI normal to inspection, nondistended, normoactive bowel sounds Extremity no clubbing, cyanosis or edema Extremity Narrative: Left hip dressing is clean, dry and intact Skin no rashes or lesions noted Neuro oriented x3 and moves all extremities Psych Mood & Affect: flat affect Charges/Coding Visit Charges Inpatient E&M: 35018 Subs Hosp L2
[2021-03-09] MEDS: Celecoxib 200 MG Capsule PO (07:56)
[2021-03-09] MEDS: Famotidine 20 MG Tablet PO (07:56)
[2021-03-09] MEDS: Tolterodine Tartrate 2 MG CAP.SA PO (07:57)
[2021-03-09] MEDS: Cholecalciferol (VIT D3) 25 MCG TABLET (1,000 UNITS) PO (07:57)
[2021-03-09] MEDS: Senna/Docusate Sodium 1 Tablet 2 TABLET PO (07:57)
[2021-03-09] MEDS: Ensure Surgery 237 ML LIQUID PO ×2 (09:42→11:48)
--- NOTE | 2021-03-09 10:01 | PCM.PN.ORT ---
Subjective Subjective The patient was sitting in bed upon examination. Patient denies any chest pain, shortness of breath, dizziness, lightheadedness, nausea or vomiting, or calf pain. Pain is controlled on medications. No adverse overnight events. Patient was placed in the ICU after fentanyl was given postoperatively in which she had apneic episode. Patient has responded very well. He denies any chest pain or shortness of breath. His pain is been very well controlled. Case has been discussed with the hospitalist Dr. Alva and at this time they are okay with patient going home. Dr. Bullock also gave okay for patient to be discharged today. He is currently being placed back on his Coumadin and which is managed by his primary care physician Dr Walker. Dr Walker stated no bridging was necessary. Patient will be following with his primary care for INR checks and to make sure he is getting back to therapeutic levels. Patient's only complaint today is some mild soreness in his left thigh. Objective Data Objective Data Vital Signs: Vital Signs Temp Pulse Resp BP Pulse Ox 97.1 F L 78 18 99/65 97 03/09/21 07:48 03/09/21 09:51 03/09/21 07:48 03/09/21 09:51 03/09/21 09:51 Oxygen Flow Rate (L/min) 3 Oxygen Delivery Method Room Air Weight: 81.3 kg Body Mass Index (BMI) 25.7 Intake & Output: Intake and Output for Last 24 Hours 03/07/21 03/08/21 03/09/21 23:59 23:59 23:59 Intake Total 3537.41 / 3537.41 290 / 290 Output Total 600 / 600 1150 / 1150 Balance 2937.41 / 2937.41 -860 / -860 Lab / Micro Data Result Diagrams: 03/09/21 03:30 03/09/21 03:30 Labs: Laboratory Results - last 24 hr 03/09/21 03:30: WBC 12.8 H, RBC 3.96 L, Hgb 11.3 L, Hct 35.8 L, MCV 90.4, MCH 28.5, MCHC 31.6 L, RDW Std Deviation 49.3 H, RDW Coeff of Beverly 14.9 H, Plt Count 171, MPV 10.5 03/09/21 03:30: Sodium 139, Potassium 4.9, Chloride 105, Carbon Dioxide 28.0, Anion Gap 6, BUN 20 H, Creatinine 0.84, Estim Creat Clear Calc 66.67, Est GFR (MDRD) Af Amer 114, Est GFR (MDRD) Non-Af 94, BUN/Creatinine Ratio 23.9 H, Glucose 109 H, Calcium 8.2 L Micro: Microbiology 03/01/21 14:00 Interface Orders SARS-CoV-2 Antigen (Rapid) - Final 02/24/21 16:08 Swab (Method) Nasal Screen MRSA/MSSA - Final ABG Data ABG results: ABG 03/08/21 13:32 Specimen Type KAMRAN Sample Site R Brach VBG pH 7.19 L* VBG pO2 183 H VBG HCO3 28 H VBG Total CO2 30 VBG O2 Sat (Calc) 99 H VBG Base Excess -1 POC Mix VBG pCO2 Pt Tmp 72.5 H* O2 Delivery Device BiPAP Crit Call To/Read Back Yes Blood Gas Notified Whom dr alva Blood Gas Notified Time 13:36:16 Clinical Comments bipap 16/8 50% Radiography Diagnostic Testing: Radiology Impression Hip X-Ray 03/08/21 08:17 IMPRESSION: Uncomplicated left hip arthroplasty. Electronically Signed: Elliot Jo MD at 10:24 EDT Tel , Service support , Physical Exam Narrative Vital signs stable and afebrile. Patient is able to plantarflex and dorsiflex actively. Sensation is intact to light touch to saphenous, sural, superficial and deep peroneal, and tibial distribution. Dressing is clean dry and intact. Negative Homans bilaterally, negative signs and symptoms of DVT. Const alert, oriented x3 and no apparent distress Assessment & Plan Assessment/Plan (1) Status post total hip replacement, left: (2) Acute hypercapnic respiratory failure: PLAN: 1. S/P left direct anterior total hip arthroplasty POD #1 2. Continue Pain Medications: Tylenol and Celebrex as prescribed by outside provider. Patient has not required narcotic. He states he has tramadol at home. I had discussion with the patient that he will utilize Tylenol and Celebrex primarily. Only use the tramadol on an as-needed basis. He did voice understanding and agreement with plan. 3. DVT Prophylaxis: Patient is resuming his Coumadin today and will continue to follow with his primary care physician for management. He is aware he will need to follow-up for INR check with Dr. Walker. 4. PT/OT: Weightbearing as tolerated with walker 5. H & H: 11.3/35.8, asymptomatic. Postoperative anemia secondary to acute blood loss from surgery without any intra operative complications. 6. Reactive leukocytosis: Currently 12.8, afebrile. Patient did receive Decadron intraoperatively 7. Continue postoperative medical management per medicine: Case was discussed and okay was given for patient to be discharged home. 8. Encouraged Incentive Spirometry 9. Disposition: Orthopedically stable, plan will be for discharge home today. Prescriptions will be E scribed to [facility]. Patient will follow-up per postop instructions. He has outpatient physical therapy scheduled. Discussed with the patient he will continue with Tylenol and his Celebrex as prescribed. He has tramadol at home that he will only use for breakthrough pain. He will continue with ice for the thigh soreness. He will follow-up with his primary care physician for management of his Coumadin. I have reviewed the [place] Automated Rx Reporting System (OARRS) report for this patient for refill pattern and other prescriber involvement as part of the appropriate surveillance for the provision of acute and chronic controlled medications. The report was requested and reviewed on the date of this entry and was considered in the prescribing process.
--- NOTE | 2021-03-09 10:13 | PCM.DC ---
Discharge Instructions Diet Discharge Diet: No restrictions Activity Discharge Activity: May Not Drive (while taking narcotic pain medications.) May shower in (days): 1 (only if incision is dry and without drainage. Do NOT soak/submerge in tub/pool/de leon/stream/hot tub.)) Ice area for (Minutes): 20 (Every 1-2 hours while [address] barrier between ice and skin.) Weight Bearing Status: Weight bearing as tolerated Keep extremity elevated above heart level: Operative Extremity Dressing / Incision Call your doctor if your incision/area has: Continuous Slow Oozing, Sudden Increased Bleeding, Increased Pain/ Swelling, Increased Redness and Foul Smelling Discharge Call your doctor if you observe: Fever of 101 or Higher, Shortness of breath, Chest pain, Calf discomfort and Uncontrolled pain Remove Dressing in: 4 days (Okay to remove dressing on March 13, 2021) Additional Dressing/Incision Instructions:: Follow [facility] Post-op Instructions. Once postoperative dressing has been removed, only use gentle soap and water over the incision. Do not use any ointments, Neosporin, salves, alcohol pads over the incision for 6 weeks postoperatively. Do not submerge underwater for 6 weeks postoperatively. Continue with JAVIER hose/elastic stockings for 2 weeks postoperatively. May remove at nighttime but needs to be placed back on the leg during the day. Do NOT use alcohol with narcotic pain medication. Do NOT make important decisions while taking narcotic medication. If you have problems with taking your medication (rash, itching, nausea, etc.) call the office at once. Follow Up Care Test Results: Test results from this visit will be discussed in further detail at your follow-up appointment, if applicable. Discharge Plan Admission Admit Date/Time: 03/08/21 06:22 Attending Provider: Tj Dorado Primary Care Provider: Sandip Walker Chi Consulting Providers: Steffanie Villar Instructions Additional Instructions / Restrictions: Must follow-up with Dr. Walker for management of his Coumadin and INR checks. Discharge Orders/Prescriptions Prescriptions: New acetaminophen 500 mg Tablet 1,000 mg PO TID Qty: 100 RF: 0 Continued celecoxib 200 mg capsule 200 mg PO DAILY RF: 0 oxybutynin chloride 10 mg tablet extended release 24hr 10 mg PO DAILY RF: 0 famotidine 20 mg Tablet 20 mg PO DAILY RF: 0 levothyroxine [Euthyrox] 50 mcg tablet 50 mcg PO DAILY RF: 0 warfarin 5 mg tablet 5 mg PO DAILY RF: 0 docusate sodium 100 mg Capsule 100 mg PO DAILY RF: 0 food supplemt, lactose-reduced Liquid 8 ml PO DAILY RF: 0 cholecalciferol (vitamin D3) [Vitamin D3] 25 mcg (1,000 unit) Tablet 25 mcg PO DAILY RF: 0 Discontinued diclofenac sodium 1 % gel 1 ea TOPICAL PRN PRN (Reason: Pain) RF: 0 Referrals / Follow Up: Physical,Therapy [Other] - 03/13/21 1:30 pm Sandip Walker Chi, MD [Primary Care Provider] - (Follow up within 1-2 weeks for INR check) David Hogan PA-C [PHYSICIAN [facility] [facility] [employer]] - 03/23/21 1:45 pm Disposition Disposition (needs filled in before D/C Order can be placed): Home, Self Care
--- NOTE | 2021-03-09 11:00 | CASEMGMT ---
RN CM HEAD BELLHOP CAPTAIN CM to room to meet with patient for initial transition planning/care coordination assessment. GT REYNOLDS introduced self and role at [facility]. Pt voices understanding and consents to assessment at this time. Pt resting in bed in no distress at this time. Pt is A/O at this time and answers all questions appropriately. Care providers, pharmacy, and demographics verified/updated at this time. PCP: Dr Walker Specialists: Dr Dorado--ortho Preferred Pharmacy: [facility] retail Insurance: [employer] Prescription Benefit: Rx Living Will/HPOA: Pt does not currently have LW/HCPOA and declines info at this time. Pt made aware that he can contact SW as an out-pt and make appt in the future if he decides he would like to talk with someone about this or would like to utilize [facility] social work for advanced directive completion. Given [employer] card with information and contact number. Pt expresses understanding. LNOK: FriendAshley. Has 3 sisters. Living Arrangements: Lives alone in home w/FFSU w/3 steps to enter. Independent prior to surgery. Pt plans to stay w/friend, Ashley @ d/c, who can assist. She lives in [place]. Pt states her home is a one-story w/ramp entrance. Transportation: Pt states drives self and states no transportation concerns at this time. Ashley will take pt to her home @ d/c. DME: States has the following DME: [facility] Pt states no need for further DME at this time. HHC/SNF: No hx of either. Denies need for HHC. Pt plans to do [facility] [place] [facility]. 1st appt scheduled for 03/13 @ 1330. Pt wishes to d/c to his friends home in [place] and states has no concerns with going to her home at time of discharge. CM to follow any discharge planning/needs. Pt voices no concerns/needs at this time. Advised pt to ask for CM if any questions/concerns/needs arise. Voices understanding. PLAN: Home w/friend and discharge plans in place. Carly NAIR RN, CM
--- NOTE | 2021-03-09 12:34 | PCM.PN.HOSP ---
Subjective Subjective Patient reports that he is feeling today and remembers nothing which happened postoperatively yesterday. He is stable on room air. He had no overnight issues and came off BiPAP after couple hours yesterday. Objective Data Objective Data Vital Signs: Vital Signs Temp Pulse Resp BP Pulse Ox 97.1 F L 73 18 112/67 97 03/09/21 07:48 03/09/21 11:50 03/09/21 11:50 03/09/21 10:30 03/09/21 11:50 Oxygen Flow Rate (L/min) 3 Oxygen Delivery Method Room Air Weight: 81.3 kg Body Mass Index (BMI) 25.7 Intake & Output: Intake and Output for Last 24 Hours 03/07/21 03/08/21 03/09/21 23:59 23:59 23:59 Intake Total 3537.41 / 3537.41 290 / 290 Output Total 600 / 600 1150 / 1150 Balance 2937.41 / 2937.41 -860 / -860 Lab / Micro Data Result Diagrams: 03/09/21 03:30 03/09/21 03:30 Labs: Laboratory Results - last 24 hr 03/09/21 03:30: WBC 12.8 H, RBC 3.96 L, Hgb 11.3 L, Hct 35.8 L, MCV 90.4, MCH 28.5, MCHC 31.6 L, RDW Std Deviation 49.3 H, RDW Coeff of Beverly 14.9 H, Plt Count 171, MPV 10.5 03/09/21 03:30: Sodium 139, Potassium 4.9, Chloride 105, Carbon Dioxide 28.0, Anion Gap 6, BUN 20 H, Creatinine 0.84, Estim Creat Clear Calc 66.67, Est GFR (MDRD) Af Amer 114, Est GFR (MDRD) Non-Af 94, BUN/Creatinine Ratio 23.9 H, Glucose 109 H, Calcium 8.2 L Micro: Microbiology 03/01/21 14:00 Interface Orders SARS-CoV-2 Antigen (Rapid) - Final 02/24/21 16:08 Swab (Method) Nasal Screen MRSA/MSSA - Final ABG Data ABG results: ABG 03/08/21 13:32 Specimen Type KAMRAN Sample Site R Brach VBG pH 7.19 L* VBG pO2 183 H VBG HCO3 28 H VBG Total CO2 30 VBG O2 Sat (Calc) 99 H VBG Base Excess -1 POC Mix VBG pCO2 Pt Tmp 72.5 H* O2 Delivery Device BiPAP Crit Call To/Read Back Yes Blood Gas Notified Whom dr alva Blood Gas Notified Time 13:36:16 Clinical Comments bipap / 50% Radiography Diagnostic Testing: Radiology Impression Hip/Pelvis X-Ray 03/08/21 08:20 Physical Exam Const alert and oriented x3 Constitutional Narrative: Elderly white male sitting up in bed, awake and watching television, appears comfortable Exam Limitations: no limitations HEENT head/scalp atraumatic and moist oral mucous membranes Head and Scalp: normocephalic Eyes Eyes Narrative: Pupils are pinpoint Neck no lymphadenopathy and supple Resp normal respiratory effort, no retractions, no use of accessory muscles and clear to auscultation bilaterally Auscultation: Negative for crackles, rales, rhonchi or wheezes Cardio regular rate, regular rhythm, S1 normal heart sound, S2 normal heart sound, no murmurs, no rub, no gallops, no clicks and no JVD GI normal to inspection, nondistended, normoactive bowel sounds, soft to palpation, non-tender and non-distended Extremity no clubbing, cyanosis or edema Extremity Narrative: Left lower extremity with polar ice over left hip, JAVIER hose in place bilaterally, dressing intact Peripheral Pulses: Yes pulses 2+ throughout Neuro oriented x3, CN's II-XII intact bilaterally, moves all extremities and no focal motor deficits Sensorium / Orientation: awake and alert Speech: speech normal Psych affect normal Assessment & Plan Assessment/Plan (1) Acute hypercapnic respiratory failure: (2) Osteoarthritis: PLAN: Acute hypercapnic Respiratory failure secondary to oversedation -Resolved -Patient is on room air 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 -Postop day 1 -Pain management per primary service but would hold narcotics at this time -Bowel regimen -Postoperative DVT prophylaxis per primary service -Patient is on Coumadin at baseline restart once okay with orthopedic surgery -PT OT GERD -Continue famotidine Hypothyroidism -Continue levothyroxine Vitamin D deficiency -Continue cholecalciferol Urinary incontinence -Continue oxybutynin History of DVT -Patient has been on Coumadin -Coumadin has been held for approximately 1 week -Restart Coumadin once okay with surgery History of prostate cancer -No current issues Plan -Patient is okay for discharge from medical standpoint Charges/Coding Visit Charges Inpatient E&M: 28601 Subs Hosp L2
== END 2021-03-09 13:55 | disposition home or self-care (01) ==
LOC: SDC 11:35 → MS3 11:35 → ICU 14:04
PROVIDERS: Anesthesiology; Admitting Provider Specialist; PCP Family Medicine Geriatric Medicine; Referring Provider Specialist; Visit Provider Specialist
PROC: (CPT 27284; principal; 2021-03-08 07:05)
DX: M16.0 Bilateral primary osteoarthritis of hip (principal); K21.9 Gastro-esophageal reflux disease without esophagitis; E78.00 Pure hypercholesterolemia, unspecified; F17.290 Nicotine dependence, other tobacco product, uncomplicated; J96.02 Acute respiratory failure with hypercapnia; Z86.711 Personal history of pulmonary embolism; Z79.01 Long term (current) use of anticoagulants; Z79.899 Other long term (current) drug therapy; Z85.46 Personal history of malignant neoplasm of prostate; Z86.718 Personal history of other venous thrombosis and embolism; E55.9 Vitamin D deficiency, unspecified; E03.9 Hypothyroidism, unspecified; R32 Unspecified urinary incontinence
CPT/HCPCS: 01214; 27130; 36415; 36416; 36600; 73501; 73502; 76000; 80048; 82803; 82962; 83735; 84443; 85027; 85610; 87081; 87426; 94002; 96365; 96366; 96375; 97110; 97162; 97166; 97530; 97535; 99218; 99251; 99406; C1776; C9803; J7120; A4216; C1876; G0378; G0463; J2310; J2405

== ENCOUNTER → 2021-04-12 15:41 | Outpatient (CLI) | payer MEDICARE, SELFPAY ==
[2021-04-12 17:31] LABS: Absolute Lymphocyte Count 1.74 X10^3/uL (0.83-4.51); Absolute Neutrophil Count 4.4 X10^3/uL (2.0-7.7); Basophil# 0.02 X10^3/uL; Basophil% 0.3 % (0-1); Eosinophil# 0.15 X10^3/uL; Eosinophils% 2.1 % (0-5); Hematocrit 39.3 % (40-54); Hemoglobin 12.8 g/dL (13.0-16.5); Lymphocyte # 1.74 X10^3/ul (0.83-4.51); Lymphocyte % 24.7 % (19-41); Mean Corp Hgb Conc 32.6 g/dL (32-36); Mean Corpuscular Hgb 28.9 pg (27.0-32.0); Mean Corpuscular Volume 88.7 fL (80-94); Mean Platelet Vol. 10.6 fl (6.2-12.0); Monocyte# 0.68 X10^3/uL; Monocyte% 9.7 % (0-10); NRBC Flagged by Analyzer 0 % (0-5); Neutrophil # 4.41 X10^3/uL (2.7-7.7); Neutrophil % 62.6 % (47-70); Platelet Count 205 K/mm3 (150-450); RBC Distribution Width SD 49.2 fl (35.1-43.9); Red Blood Count 4.43 M/mm3 (4.6-6.2)
[2021-04-12 17:45] LABS: Vitamin D,25 Hydroxy 33.2 ng/mL
[2021-04-12 18:07] LABS: ALB/GLOB Ratio 0.9 RATIO (0.9-2.4); AST(SGOT) 20 U/L (15-37); Alanine Aminotransfer ALT/SGPT 23 U/L (16-61); Albumin, Serum 3.5 g/dL (3.2-5.0); Alkaline Phosphatase 104 U/L (45-117); Anion Gap 5 (5-15); BUN 19 mg/dL (7-18); BUN/Creat Ratio 21.7 RATIO (10-20); Chloride 105 mmol/L (98-107); Creatinine, Serum 0.88 mg/dL (0.70-1.30); EST Glomerular Filtration Rate 89 mL/min (>60); Est Glom Filt Rate - Afr Amer 108 mL/min (>60); Globulin 3.8 g/dL (2.2-4.2); Glucose 85 mg/dL (74-106); Potassium 4.5 mmol/L (3.5-5.1); Protein, Total 7.3 g/dL (6.4-8.2); Sodium Level 136 mmol/L (136-145); Thyroid Stim Hormone (TSH) 2.01 uIU/mL (0.358-3.74); Uric Acid 5.7 mg/dL (3.5-7.2)
== END ==
PROVIDERS: PCP Family Medicine Geriatric Medicine; Visit Provider Family Medicine Geriatric Medicine
DX: M10.9 Gout, unspecified (principal); E55.9 Vitamin D deficiency, unspecified; R53.83 Other fatigue
CPT/HCPCS: 36415; 80053; 82306; 84443; 84550; 85025

== ENCOUNTER → 2021-04-12 15:55 | Outpatient (CLI) | payer MEDICARE, SELFPAY ==
--- NOTE | 2021-04-12 15:57 | VDLE_ITS ---
Reason For Study: Localized edema Procedure LEFT This is a venous duplex using B-mode, color GSV is normal. flow and spectral Doppler. CFV is compressible, spontaneous, phasic, Exam performed in department. competent, and demonstrates normal A preliminary report was called and/or faxed augmentation. to @ [phone]. FV is compressible, spontaneous, phasic, competent and demonstrates normal augmentation. POP V is compressible, spontaneous, phasic, competent and demonstrates normal augmentation. T/P Trunk is compressible. PTV is compressible. LT PerV is compressible. VL/Venous Duplex US, Unilateral Interpretation Summary Deep veins of the left lower extremity are patent and compressible segmentally. There is no evidence of left lower extremity deep vein thrombosis. Valvular competence appears intac t within the proximal deep venous system on the left . The left great saphenous vein appears patent a nd compressible segmentally. Ordering Physician: Sandip Walker Referring Physician: Sandip Walker Chi Performed By: April Jung, JUAN PABLO, RVT
== END ==
PROVIDERS: PCP Family Medicine Geriatric Medicine; Referring Provider Family Medicine Geriatric Medicine; Visit Provider Family Medicine Geriatric Medicine
DX: R60.0 Localized edema (principal); M10.9 Gout, unspecified; E55.9 Vitamin D deficiency, unspecified; R53.83 Other fatigue
CPT/HCPCS: 36415; 80053; 82306; 84443; 84550; 85025; 93971

== ENCOUNTER 2021-07-18 13:24 | Outpatient (CLI) | payer MEDICARE, SELFPAY ==
[2021-07-18 14:29] LABS: Absolute Lymphocyte Count 1.91 X10^3/uL (0.83-4.51); Absolute Neutrophil Count 5.5 X10^3/uL (2.0-7.7); Basophil# 0.02 X10^3/uL; Basophil% 0.2 % (0-1); Eosinophil# 0.07 X10^3/uL; Eosinophils% 0.8 % (0-5); Hematocrit 43.2 % (40-54); Hemoglobin 14.5 g/dL (13.0-16.5); Lymphocyte # 1.91 X10^3/ul (0.83-4.51); Lymphocyte % 22.9 % (19-41); Mean Corp Hgb Conc 33.6 g/dL (32-36); Mean Corpuscular Hgb 28.8 pg (27.0-32.0); Mean Corpuscular Volume 85.9 fL (80-94); Mean Platelet Vol. 10.3 fl (6.2-12.0); Monocyte# 0.81 X10^3/uL; Monocyte% 9.7 % (0-10); NRBC Flagged by Analyzer 0 % (0-5); Neutrophil # 5.49 X10^3/uL (2.7-7.7); Platelet Count 225 K/mm3 (150-450); RBC Distribution Width CV 14.9 % (11.6-14.6); RBC Distribution Width SD 46.7 fl (35.1-43.9); Red Blood Count 5.03 M/mm3 (4.6-6.2); White Blood Count 8.3 K/mm3 (4.4-11.0)
[2021-07-18 14:53] LABS: Albumin, Serum 3.6 g/dL (3.2-5.0); Anion Gap 5 (5-15); BUN 23 mg/dL (7-18); BUN/Creat Ratio 27.2 RATIO (10-20); Calcium,Total 9.1 mg/dL (8.5-10.1); Chloride 109 mmol/L (98-107); Creatinine, Serum 0.85 mg/dL (0.70-1.30); EST Glomerular Filtration Rate 93 mL/min (>60); Est Glom Filt Rate - Afr Amer 112 mL/min (>60); Glucose 99 mg/dL (74-106); Potassium 4.3 mmol/L (3.5-5.1); Sodium Level 140 mmol/L (136-145)
[2021-07-18 15:01] LABS: Thyroid Stim Hormone (TSH) 1.83 uIU/mL (0.358-3.74)
[2021-07-20 10:35] LABS: MG Sendout 2.1 mg/dL (1.6-2.3)
== END 2021-07-18 23:59 | disposition home or self-care (01) ==
LOC: LAB 13:25
PROVIDERS: Anesthesiology; PCP Family Medicine Geriatric Medicine; Visit Provider Specialist
DX: Z01.818 Encounter for other preprocedural examination (principal)
CPT/HCPCS: 80048; 82040; 83735; 84443; 85025; 87081

== ENCOUNTER 2021-07-26 07:50 | Observation (INO) | payer MEDICARE, SELFPAY ==
[2021-07-26] VITALS (12 sets, daily range): BP systolic 100–128; BP diastolic 51–87; PULSE 63–73; RESP 16–20; TEMP 36.1–36.8; O2SAT 96–100; BMI 26.9
[2021-07-26] MEDS: Lactated Ringers 1,000 ML 999 ML IV ×2 (06:55→11:24)
[2021-07-26] MEDS: Gabapentin 600 MG Tablet PO (07:35)
[2021-07-26] MEDS: Acetaminophen 500 MG Tablet 1000 MG PO ×3 (07:35→21:35)
[2021-07-26 07:51] LABS: INR Fingerstick 1.8; Prothrombin Time Fingerstick 21.1 SEC (11.9-14.4)
[2021-07-26] MEDS: Lactated Ringers 1,000 ML 75 ML IV (08:55)
[2021-07-26] MEDS: Cefazolin 2 GM in 0.9% Normal Saline 100 ML IV (09:36)
[2021-07-26] MEDS: dexAMETHasone 10 MG/ML Vial IV (09:45)
--- NOTE | 2021-07-26 10:12 | RAD_ITS ---
STUDY: X-RAY - PELVIS AND RIGHT HIP REASON FOR EXAM: Male, 81 years old. Pain. TECHNIQUE: Intraoperative digital documentation views of the right total hip arthroplasty. COMPARISON: 03/08/2021. FINDINGS: 3 intraoperative digital documentation images show placement of right total hip arthroplasty. Stable left total hip arthroplasty. RAD/Hip 1 view with Pelvis IMPRESSION: Documentation images of right total hip arthroplasty as described. Electronically Signed: Cesar Arcos MD at 11:29 EST ,
--- NOTE | 2021-07-26 10:31 | PCM.OPRPT ---
Report of Operation Date of Procedure: 07/26/21 Pre-Operative Diagnosis: Right hip primary osteoarthritis Post-Operative Diagnosis: Right hip primary osteoarthritis Surgery/Procedure Performed:: Right minimally invasive direct anterior total hip replacement Description of Surgical Findings:: Stable hip with equal leg length Surgeon: Tj Dorado a p manager: David Hogan Type of Anesthesia: General Anesthesiologist: Javier Mccord Special Medications: 2 g Ancef, 1 g TXA at incision, 1 g TXA closure, 10 mg Decadron, joint cocktail (5 mg Duramorph, 30 mL of 0.5% Ropivicaine, 1000 units of epinephrine, 30 mg of Toradol) Specimen's removed: Bony cuts Estimated Blood Loss (mL): 250 Fluids Replaced: 1400 mL crystalloid Description of Procedure: Components used: 1. Accolade 2 [place] femoral stem size 5 127? 2. [place] trident 2 acetabular shell size 56 mm with 2 screws in the safe zone 3. [place] X3 polyethylene F 4. Genesis Biolox delta 36 mm, 2.5 mm femoral head Brief history operative indications: 81 yo male who failed conservative measures for their hip osteoarthritis. X-rays were consistent with osteoarthritis including joint space narrowing, osteophyte formation and subchondral cysts. Total hip replacement was discussed with the patient with risks and benefits including but not limited to blood loss, DVTs, PEs, neurovascular damage, dislocation, general risks of anesthesia including loss of life. Patient demonstrated an understanding medical clearance is obtained the patient was consented for surgery. Procedure: On the date of procedure the patient's right hip was marked in the preoperative area. Patient was then taken back to the operating room where anesthesia assumed control of the C-spine and airway and administered anesthetic. Patient was transferred to the operating table and placed in the supine position. The hips were placed at the break of the bed and a sacral bump was placed. The right lower extremity was then prepped out in a sterile fashion using chlorhexidine while the surgeon scrubbed. The PA was vital in the positioning of the patient. Upon reentering the room the right lower extremity was draped in the standard orthopedic fashion and the incision was marked. A timeout was called and everyone agreed upon the side, the site, the procedure be performed, antibody given, and patient's identity. At this time incision was made through skin, subcutaneous tissue, and fat down to fascia. The fascia was then incised and the TFL was retracted laterally. A retractor was placed on the lateral border of the femoral neck. Attention was directed to the inferior portion of the approach and all crossing vessels were identified and appropriately coagulated. A retractor was then placed on the medial portion of the femoral neck. The anterior capsule was then cleared of all soft tissue and then H shaped capsulotomy was made. The retractors were then placed inside the capsule. The femoral neck was identified and a cleanup cut was made. At this time a power corkscrew was used to remove the femoral head. Attention was then turned toward the acetabulum where the soft tissues were appropriately retracted and the acetabulum was sequentially reamed to 56 mm. A 56 mm cup was then selected and impacted into place. 2 screws were placed in the safe zone. Acetabular liner was impacted into place and locking mechanism was verified. The position of the acetabular cup was then verified under live fluoroscopy. Attention was then turned to the femur. Soft tissue releases on the medial and lateral femoral neck were appropriately done, the leg was externally rotated and lateralized. A Cazares retractor was placed medially and proximally to the greater trochanter this allowed appropriate visualization and exposure of the femoral canal. Rongeour was then used to remove excess lateral bone. A canal finder and entry broach were used to open the proximal canal. Once we verified we were down the femoral canal we subsequently broached up to a size 5 femur. The appropriate neck was placed in the previously selected head was trialed with a 2.5 mm neck. Traction was pulled and the hip was reduced with internal rotation. Once it was appropriately reduced and stability was checked. There was minimal shuck, equal leg lengths and appropriate stability with hyperextension and external rotation as well as with 90? flexion and internal rotation. Fluoroscopy was then also used to verify the position of the components and leg lengths using the contralateral side for comparison. The trial components were then dislocated the proximal femur was again exposed and the components were removed from the wound. The final components were verified and opened. The wound was copiously irrigated out with normal saline. The acetabulum was checked for any residual debris. The final components were placed and impacted. Traction and internal rotation were again used to reduce the hip. After adequate reduction the hip remained stable with appropriate leg lengths. The final components were once again checked with live fluoroscopy and were found to be satisfactory. The wound was then copiously irrigated with normal saline once more, and hemostasis was obtained. Closure was then done using #1 Vicryl runner to close the fascia. A 2-0 vicryl interuppted sutures were used to close the subcutaneous skin. A 3-0 Monocryl and Steri-Strips were used for final skin closure. A Silverlon dressing was placed. Patient was awakened by anesthesia and transferred to the rmonrovia. Patient was then transferred to the PACU for recovery. During the course of the procedure the physician photograph printer (PE) played a vital role. Their intimate knowledge of my steps in the procedure aided in safe and expedient completion of the procedure. The PE played a vital rolls in positioning particularly in obtaining the appropriate positioning of the sacral bump. The PE was also vital in the retraction of soft tissues during the exposure and especially the femoral work as this is a vital part of the procedure to prevent complications and fractures. The PE was also vital and protecting soft tissues during times of bony cuts and reaming. He also played a vital role in closure with my direct supervision. The PE was also important during reduction and dislocation of the joint and trials intraoperatively. Postoperative plan: Patient will get 24 hours postop antibiotics. Patient will get in-house physical therapy and will be weight-bear as tolerated. Patient will follow up in office in 2 weeks for a wound check and x-rays. DVT prophylaxis: Resume Coumadin tomorrow Complications No intraoperative complications Admit VTE Documentation VTE Present on Admission: No VTE Mechan Device Prophylaxis: SCD's and Thigh High JAVIER Hose VTE Pharm Prophylaxis ordered?: Yes
[2021-07-26] MEDS: TXA in NS 100ml (Placed in Wound) OPERA.SITE (10:35)
--- NOTE | 2021-07-26 11:40 | RAD_ITS ---
STUDY: X-RAY - PELVIS AND RIGHT HIP REASON FOR EXAM: Male, 81 years old. Postoperative evaluation after total hip arthroplasty. TECHNIQUE: 2 views of the pelvis and hip. COMPARISON: 03/08/2021. FINDINGS: Osteopenia. Stable left total hip arthroplasty. There is a new right total hip arthroplasty in anatomic alignment with expected post-operative findings. There are no complications noted. RAD/Hip Min 2 Views (Portable) IMPRESSION: Placement of total hip arthroplasty in anatomic alignment without complications. Electronically Signed: Cesar Arcos MD at 11:54 EST ,
[2021-07-26] MEDS: Lactated Ringers 1,000 ML 125 ML IV (12:00)
[2021-07-26] MEDS: Ensure Surgery 237 ML LIQUID PO ×2 (13:40→17:27)
--- NOTE | 2021-07-26 15:17 | PCM.PN.HOSP ---
Documented by User: Linda Tavera NP, MACHINE FEED OPERATOR-C 07/26/21 15:24 Subjective Subjective Patient seen and examined. Underwent right total hip replacement by Dr. Dorado. Denies pain currently. at bedside. Asking when patient will be discharged home. Patient reports he is on Coumadin for history of DVT. Objective Data Objective Data Vital Signs: Vital Signs Temp Pulse Resp BP Pulse Ox 97.4 F L 69 18 123/87 H 99 07/26/21 15:05 07/26/21 15:05 07/26/21 15:05 07/26/21 15:05 07/26/21 15:05 Oxygen Flow Rate (L/min) 2 Oxygen Delivery Method Room Air Weight: 171 lb 15.369 oz Body Mass Index (BMI) 26.9 Intake & Output: Intake and Output for Last 24 Hours 07/24/21 07/25/21 07/26/21 23:59 23:59 23:59 Intake Total 3214.5 / 3214.5 Balance 3214.5 / 3214.5 Lab / Micro Data Labs: Laboratory Results - last 24 hr 07/26/21 07:44: POC PT 21.1 H, INR 1.8 Micro: Microbiology 07/26/21 06:50 Interface Orders SARS-CoV-2 Antigen (Rapid) - Final Radiography Diagnostic Testing: Radiology Impression Hip/Pelvis X-Ray 07/26/21 10:12 IMPRESSION: Documentation images of right total hip arthroplasty as described. Electronically Signed: Cesar Arcos MD at 11:29 EST , Hip X-Ray 07/26/21 11:40 IMPRESSION: Placement of total hip arthroplasty in anatomic alignment without complications. Electronically Signed: eCsar Arcos MD at 11:54 EST , Physical Exam Const alert, oriented x3 and no apparent distress Orientation / Consciousness: awake, oriented to person, oriented to place and oriented to time HEENT normocephalic and moist oral mucous membranes Eyes PERRL, EOMs intact bilaterally and conjunctivae normal Neck no lymphadenopathy Resp normal respiratory effort and clear to auscultation bilaterally Cardio regular rate, regular rhythm and no murmurs Peripheral Pulses: pulses 2+ throughout GI normal to inspection, nondistended, normoactive bowel sounds, non-tender and non-distended Extremity normal to inspection Skin no rashes or lesions noted Skin Narrative: Postop dressing intact. Lesions: no lesions Rashes: no rashes Trauma: no lacerations or abrasions Neuro CN's II-XII intact bilaterally, no focal motor deficits, no sensory deficits noted and deep tendon reflexes 2+ bilaterally Psych mental status grossly normal and affect normal Assessment & Plan Assessment/Plan (1) Status post total hip replacement, left: PLAN: 1. Right hip primary osteoarthritis status post right anterior total hip replacement-management per Ortho. PT/OT. As needed pain regimen. Continue Coumadin when okay per Ortho. 2. History of DVT-patient has been on long-term Coumadin. Held prior to surgery. Restart Coumadin once okay per surgery. 3. Hypothyroidism-continue Synthroid. 4. GERD-continue famotidine. 5. Vitamin D deficiency-continue supplement. 6. Urinary incontinence-continue oxybutynin. 7. History of prostate cancer-in remission. DVT prophylaxis-SCDs, resume Coumadin when okay per Ortho This patient was seen by JANET Ochoa under the supervision of Dr. Grant. Time spent examining patient, reviewing data and subsequent management of care: 12 Minutes Documented by User: Dr. Jean Paul Grant MD 07/26/21 18:23 Subjective Subjective Patient referred by Tj Saez, attending to manage the medical problems. Reason for consult: Medical management of multiple problems including history of DVT, hypothyroidism GERD and urinary incontinence. HPI: Patient is being admitted by Dr. Johnathan Grijalva after elective right hip total hip replacement. The patient has history of primary right hip osteoarthritis and failed conservative management. He had right minimally invasive direct anterior total hip replacement. Patient had spontaneous voiding of urine after surgery. He denies chest pain, shortness of breath, abdominal pain. His last bowel movement was yesterday and is passing flatus. Physical Exam Narrative General: Alert, Oriented x3, Cooperative HEENT: Atraumatic, PERRLA, EOMI, Normocephalic Oral: No Gingival or Mucosal Lesions/ Ulcerations Neck: Supple, No JVD, Negative Carotid Bruits Lungs: Air entry equal in bilateral lung bases. No crepitation/rhonchi Cardiovascular: Regular rate, Regular Rhythm, Normal S1, Normal S2, No murmurs Abdomen: Bowel Sounds Present, Soft, Non Tender, Non-Distended : No renal angle tenderness. No suprapubic tenderness. Extremities: No edema, Capillary Refill Less than 3 Seconds Skin: No rashes, No breakdown Musculoskeletal: Right hip anterior THR. Surgical dressing is dry. No hematoma or bruise noticed. Right ankle power 5/5. Neurological: Cranial nerves II-XII grossly intact, DTR 2+/4 and gross sensation symmetrical in both lower extremities. Psych/Mental Status: Normal Affect, Appropriate. Assessment & Plan Assessment/Plan (1) Status post total hip replacement, left: (2) Osteoarthritis: PLAN: This patient was seen in conjunction with Linda MACDONALD. I have independently interviewed and examined the patient and reviewed pertinent history, examination findings, laboratory and plan of management. I have reviewed the note and agree with the documented findings with the few additional points. In brief, patient is being admitted for elective right anterior total hip replacement done on 07/26/2021. Incentive spirometry, bowel and bladder care. VT prophylaxis as per primary attending. Patient has history of DVT and is on warfarin for long-term. Resume warfarin once bleeding risk is controlled. Preop EKG on 02/03/2021 shows sinus rhythm. He also has hypothyroidism, GERD, chronic midline lucency, chronic urinary incontinence and history of prostate cancer in remission. I have discussed my assessment with Linda MACDONALD and orders have been reviewed. Charges/Coding Visit Charges Office Visits / Consults: 93441 OP Consult L3
[2021-07-26] MEDS: Cefazolin 1 GM/50 ML BAG IV (17:27)
[2021-07-26] MEDS: Senna/Docusate Sodium 1 Tablet 2 TABLET PO (21:35)
[2021-07-27] MEDS: Cefazolin 1 GM/50 ML BAG IV (02:27)
[2021-07-27 02:33] VITALS: BP 108/58; PULSE 72; RESP 16; TEMP 37.1; O2SAT 97
[2021-07-27] MEDS: Acetaminophen 500 MG Tablet 1000 MG PO (05:54)
[2021-07-27] MEDS: Levothyroxine 50 MCG Tablet PO (05:54)
[2021-07-27 06:38] LABS: Absolute Lymphocyte Count 1.13 X10^3/uL (0.83-4.51); Basophil# 0.01 X10^3/uL; Basophil% 0.1 % (0-1); Hematocrit 31.3 % (40-54); Hemoglobin 10.1 g/dL (13.0-16.5); Lymphocyte # 1.13 X10^3/ul (0.83-4.51); Lymphocyte % 7.6 % (19-41); Mean Corp Hgb Conc 32.3 g/dL (32-36); Mean Corpuscular Hgb 27.9 pg (27.0-32.0); Mean Corpuscular Volume 86.5 fL (80-94); Mean Platelet Vol. 10.5 fl (6.2-12.0); Monocyte# 1.66 X10^3/uL; Monocyte% 11.2 % (0-10); NRBC Flagged by Analyzer 0 % (0-5); Neutrophil # 11.99 X10^3/uL (2.7-7.7); Neutrophil % 80.6 % (47-70); POSITIVE DIFFERENTIAL YES; Platelet Count 183 K/mm3 (150-450); RBC Distribution Width CV 14.9 % (11.6-14.6); RBC Distribution Width SD 47.4 fl (35.1-43.9); Red Blood Count 3.62 M/mm3 (4.6-6.2); White Blood Count 14.9 K/mm3 (4.4-11.0)
[2021-07-27 06:41] LABS: Differential Indicated SCAN CRITERIA MET
[2021-07-27 06:53] LABS: International Normalized Ratio 1.2
[2021-07-27 07:02] LABS: Differential Comment SCANNED
[2021-07-27 07:08] LABS: Anion Gap 5 (5-15); BUN 24 mg/dL (7-18); BUN/Creat Ratio 28.3 RATIO (10-20); Chloride 108 mmol/L (98-107); Creatinine, Serum 0.85 mg/dL (0.70-1.30); EST Glomerular Filtration Rate 93 mL/min (>60); Est Glom Filt Rate - Afr Amer 112 mL/min (>60); Estimated Creatinine Clearance 65.88 ml/min; Glucose 128 mg/dL (74-106); Potassium 4.6 mmol/L (3.5-5.1); Sodium Level 138 mmol/L (136-145)
[2021-07-27 07:23] VITALS: BP 110/55; PULSE 68; RESP 16; TEMP 36.5; O2SAT 96
[2021-07-27] MEDS: Cholecalciferol (VIT D3) 25 MCG TABLET (1,000 UNITS) PO (10:23)
[2021-07-27] MEDS: Senna/Docusate Sodium 1 Tablet 2 TABLET PO (10:23)
[2021-07-27] MEDS: Famotidine 20 MG Tablet PO (10:23)
[2021-07-27] MEDS: Ensure Surgery 237 ML LIQUID PO ×2 (10:25→12:17)
--- NOTE | 2021-07-27 10:35 | CASEMGMT ---
RN GAIL WEDDING DESIGNER CM to room to meet with patient for initial transition planning/care coordination assessment. GT REYNOLDS introduced self and role at [facility]. Pt voices understanding and consents to assessment at this time. Pt sitting up in chair in room in no distress at this time. Pt is A/O at this time and answers all questions appropriately. Care providers, pharmacy, and demographics verified/updated at this time. PCP: Dr Walker Specialists: Dr Dorado--ortho Preferred Pharmacy: [facility] retail Insurance: [employer] Prescription Benefit: Yes Living Will/HPOA: Pt does not currently have LW/HCPOA. He states he would like to complete HPOA paperwork before discharging home today and would like Ashley to be HPOA. Pt made aware SW may not be able to meet w/him today prior to discharge and made aware he can f/u as an OP to have these completed, if SW unable to meet w/him today. He voices understanding. Message left for JOSSIE, [place], re: pt wishes to complete AD. LNOK: Friend, Ashley. Has 3 sisters. Living Arrangements: Lives alone in home w/FFSU w/3 steps to enter. Independent prior to surgery. Pt plans to stay w/friendAshley @ d/c, who can assist. She lives in [place]. Pt states her home is a one-story w/ramp entrance. He states he stayed w/her after last surgery and things went well. Transportation: Pt states drives self and states no transportation concerns at this time. Ashley will take pt to her home @ d/c. DME: States has the following DME: sharon reynoso Pt states no need for further DME at this time. HHC/SNF: No hx of either. Denies need for HHC. Pt plans to do OP therapy @ [facility] OP therapy in [place]. GT REYNOLDS called [facility] OP therapy and confirmed 1st appt is scheduled for 07/28 @ 2 PM. Pt wishes to d/c to his friends home in [place] and states has no concerns with going to her home at time of discharge. CM to follow for any further discharge planning/needs. Pt voices no concerns/needs at this time. Advised pt to ask for CM if any questions/concerns/needs arise. Voices understanding. PLAN: Home w/friend, OP therapy @ [facility] OP, and discharge plans in place. Carly BSN RN CM
--- NOTE | 2021-07-27 10:46 | PCM.PN.ORT ---
Subjective Subjective The patient was sitting in bedside chair upon examination. Patient denies any chest pain, shortness of breath, dizziness, lightheadedness, nausea or vomiting, or calf pain. Pain is controlled on medications. No adverse overnight events. Patient has been through occupational therapy and physical therapy and doing very well. Patients only complaint is some anterior thigh soreness. Patient previously underwent a left total hip arthroplasty by Dr. Tj Dorado on March 08, 2021. He was discharged postoperative day 1 and doing well. Objective Data Objective Data Vital Signs: Vital Signs Temp Pulse Resp BP Pulse Ox 97.7 F L 68 16 110/55 L 96 07/27/21 07:23 07/27/21 07:23 07/27/21 07:23 07/27/21 07:23 07/27/21 07:23 Oxygen Flow Rate (L/min) 2 Oxygen Delivery Method Room Air Weight: 78 kg Body Mass Index (BMI) 26.9 Intake & Output: Intake and Output for Last 24 Hours 07/25/21 07/26/21 07/27/21 23:59 23:59 23:59 Intake Total 4384.5 / 4784.5 450 / 450 Output Total 450 / 450 Balance 4384.5 / 4784.5 0 / 0 Lab / Micro Data Result Diagrams: 07/27/21 05:40 07/27/21 05:40 Labs: Laboratory Results - last 24 hr 07/27/21 05:40: WBC 14.9 H, RBC 3.62 L, Hgb 10.1 L, Hct 31.3 L, MCV 86.5, MCH 27.9, MCHC 32.3, RDW Std Deviation 47.4 H, RDW Coeff of [place] 14.9 H, Plt Count 183, MPV 10.5, Immature Gran % (Auto) 0.500, Neut % (Auto) 80.6 H, Lymph % (Auto) 7.6 L, [place] % (Auto) 11.2 H, Eos % (Auto) 0.0, Baso % (Auto) 0.1, Absolute Neuts (auto) 12.0 H, Absolute Lymphs (auto) 1.13, Nucleated RBC % 0, Differential Comment SCANNED, Diff Path Review October07/27/21 05:40: Sodium 138, Potassium 4.6, Chloride 108 H, Carbon Dioxide 25.0, Anion Gap 5, BUN 24 H, Creatinine 0.85, Estim Creat Clear Calc 65.88, Est GFR (MDRD) Af Amer 112, Est GFR (MDRD) Non-Af 93, BUN/Creatinine Ratio 28.3 H, Glucose 128 H, Calcium 8.0 L 07/27/21 05:40: PT 15.0 H, INR 1.2 Micro: Microbiology 07/26/21 06:50 Interface Orders SARS-CoV-2 Antigen (Rapid) - Final Radiography Diagnostic Testing: Radiology Impression Hip/Pelvis X-Ray 07/26/21 10:12 IMPRESSION: Documentation images of right total hip arthroplasty as described. Electronically Signed: Cesar Arcos MD at 11:29 EST , Hip X-Ray 07/26/21 11:40 IMPRESSION: Placement of total hip arthroplasty in anatomic alignment without complications. Electronically Signed: Cesar Arcos MD at 11:54 EST , Physical Exam Narrative Vital signs stable and afebrile. Right thigh is soft and supple Patient currently wearing JAVIER hose and SCDs Patient is able to plantarflex and dorsiflex actively. Sensation is intact to light touch to saphenous, sural, superficial and deep peroneal, and tibial distribution. Dressing is clean dry and intact. Negative Homans bilaterally, negative signs and symptoms of DVT. Const alert, oriented x3 and no apparent distress Assessment & Plan Assessment/Plan (1) S/P total right hip arthroplasty: PLAN: 1. S/P direct anterior right total hip arthroplasty POD #1 2. Continue Pain Medications: Tylenol and tramadol 3. DVT Prophylaxis: Patient has been placed back on his Coumadin. Patient has previous history of pulmonary embolism/DVT. He will follow-up with his primary provider managing Coumadin for postoperative lab work making sure he is therapeutic. He voiced understanding agreement. 4. PT/OT: Weightbearing as tolerated with walker 5. H & H: 10.1/31.3, asymptomatic. Postoperative anemia secondary to acute blood loss from surgery without any intra operative complications. 6. Reactive leukocytosis: Currently 14.9, afebrile. Patient did receive Decadron intraoperatively 7. Continue postoperative medical management per medicine 8. Encouraged Incentive Spirometry 9. Disposition: Plan will be for discharge home today as long as patient continues to tolerate therapy and pain is well controlled. Patient has outpatient physical therapy established to begin tomorrow. He will follow-up per postop instructions. Patient will follow up with his provider for his Coumadin and states he has an appointment in 1 week. Prescriptions will be E scribed to [facility] pharmacy. I have reviewed the [place] Automated Rx Reporting System (OARRS) report for this patient for refill pattern and other prescriber involvement as part of the appropriate surveillance for the provision of acute and chronic controlled medications. The report was requested and reviewed on the date of this entry and was considered in the prescribing process.
--- NOTE | 2021-07-27 10:51 | DCINST_ITS ---
Discharge Instructions Diet Discharge Diet: No restrictions Activity Discharge Activity: May Not Drive (while taking narcotic pain medications.) May shower in (days): 1 (only if incision is dry and without drainage. Do NOT soak/submerge in tub/pool/[place]/stream/hot tub.)) Ice area for (Minutes): 20 (Every 1-2 hours while [address] barrier between ice and skin.) Weight Bearing Status: Weight bearing as tolerated Keep extremity elevated above heart level: Operative Extremity Dressing / Incision Call your doctor if your incision/area has: Continuous Slow Oozing, Sudden Increased Bleeding, Increased Pain/ Swelling, Increased Redness and Foul Smelling Discharge Call your doctor if you observe: Fever of 101 or Higher, Shortness of breath, Chest pain, Calf discomfort and Uncontrolled pain Remove Dressing in: 4 days (Okay to remove dressing on July 31, 2021) Additional Dressing/Incision Instructions:: Follow [facility] Post-op Instructions. Once postoperative dressing has been removed, only use gentle soap and water over the incision. Do not use any ointments, Neosporin, salves, alcohol pads over the incision for 6 weeks postoperatively. Do not submerge underwater for 6 weeks postoperatively. Continue with JAVIER hose/elastic stockings for 2 weeks postoperatively. May remove at nighttime but needs to be placed back on the leg during the day. Do NOT use alcohol with narcotic pain medication. Do NOT make important decisions while taking narcotic medication. If you have problems with taking your medication (rash, itching, nausea, etc.) call the office at once. Follow Up Care Test Results: Test results from this visit will be discussed in further detail at your follow-up appointment, if applicable. Discharge Plan Admission Admit Date/Time: 07/26/21 07:50 Attending Provider: Aaron Kumar Primary Care Provider: Sandip Walker [facility] [employer] Providers: Jean Paul Grant Discharge Orders/Prescriptions Prescriptions: New acetaminophen 500 mg Tablet 1,000 mg PO TID Qty: 100 RF: 0 sennosides-docusate sodium [Stool Softener-Stimulant Laxat] 8.6-50 mg Tablet 2 tab PO BID Qty: 20 RF: 0 tramadol 50 mg Tablet 50 - 100 mg PO Q6H PRN PRN (Reason: Pain Score 4-10) 5 Days Qty: 42 RF: 0 Continued celecoxib 200 mg capsule 200 mg PO DAILY RF: 0 oxybutynin chloride 10 mg tablet extended release 24hr 10 mg PO PRN PRN (Reason: Bladder Spasms) RF: 0 famotidine 20 mg Tablet 20 mg PO QHS RF: 0 levothyroxine [Euthyrox] 50 mcg tablet 50 mcg PO DAILY RF: 0 warfarin 5 mg tablet 5 mg PO DAILY RF: 0 cholecalciferol (vitamin D3) [Vitamin D3] 25 mcg (1,000 unit) Tablet 25 mcg PO DAILY RF: 0 Other Ambulatory Orders: Magnesium (Routine) Timeframe: [id number] Facility: [facility] - Location: Laboratory Ordered By: Dr. Markel Ulrich Referrals / Follow Up: Physical,Therapy [Other] - 07/28/21 2:00 pm Sandip Walker Chi, MD [Primary Care Provider] - David Hogan PA-C [PHYSICIAN [place] ROOM ATTENDANT] - 08/10/21 3:45 pm Disposition Disposition (needs filled in before D/C Order can be placed): Home, Self Care
[2021-07-27 13:01] LABS: Pathologist Review Reviewed
--- NOTE | 2021-07-27 13:13 | PN.HOSP_ITS ---
Subjective Subjective Feels well. Objective Data Objective Data Vital Signs: Vital Signs Temp Pulse Resp BP Pulse Ox 36.5 C L 68 16 110/55 L 96 07/27/21 07:23 07/27/21 07:23 07/27/21 07:23 07/27/21 07:23 07/27/21 07:23 Oxygen Flow Rate (L/min) 2 Oxygen Delivery Method Room Air Weight: 78 kg Body Mass Index (BMI) 26.9 Intake & Output: Intake and Output for Last 24 Hours 07/25/21 07/26/21 07/27/21 23:59 23:59 23:59 Intake Total 4384.5 / 4784.5 450 / 450 Output Total 450 / 450 Balance 4384.5 / 4784.5 0 / 0 Lab / Micro Data Result Diagrams: 07/27/21 05:40 07/27/21 05:40 Labs: Laboratory Results - last 24 hr 07/27/21 05:40: WBC 14.9 H, RBC 3.62 L, Hgb 10.1 L, Hct 31.3 L, MCV 86.5, MCH 27.9, MCHC 32.3, RDW Std Deviation 47.4 H, RDW Coeff of [place] 14.9 H, Plt Count 183, MPV 10.5, Immature Gran % (Auto) 0.500, Neut % (Auto) 80.6 H, Lymph % (Auto) 7.6 L, [place] % (Auto) 11.2 H, Eos % (Auto) 0.0, Baso % (Auto) 0.1, Absolute Neuts (auto) 12.0 H, Absolute Lymphs (auto) 1.13, Nucleated RBC % 0, Differential Comment SCANNED, Diff Path Review Reviewed 07/27/21 05:40: Sodium 138, Potassium 4.6, Chloride 108 H, Carbon Dioxide 25.0, Anion Gap 5, BUN 24 H, Creatinine 0.85, Estim Creat Clear Calc 65.88, Est GFR (MDRD) Af Amer 112, Est GFR (MDRD) Non-Af 93, BUN/Creatinine Ratio 28.3 H, Glucose 128 H, Calcium 8.0 L 07/27/21 05:40: PT 15.0 H, INR 1.2 Micro: Microbiology 07/26/21 06:50 Interface Orders SARS-CoV-2 Antigen (Rapid) - Final Physical Exam Const alert and oriented x3 Constitutional Narrative: Up in chair eating breakfast HEENT head/scalp atraumatic Head and Scalp: normocephalic Psych affect normal Assessment & Plan Assessment/Plan (1) S/P total right hip arthroplasty: PLAN: 1. Status post right hip arthroplasty Management per orthopedics 2. 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 Medically stable for discharge. Charges/Coding Visit Charges Inpatient E&M: 91220 Subs Hosp L1
--- NOTE | 2021-07-27 14:54 | CASEMGMT ---
GT CM in to discuss LUJAN form with patient. RN CM explained LUJAN form, patient voiced understanding. Pt signed form and filed in chart. Pt provided with a copy of signed LUJAN form. Patient had no further questions or concerns at this time.
== END 2021-07-27 15:15 | disposition home or self-care (01) ==
LOC: SDC 08:37 → MS3 08:37
PROVIDERS: Nurse Practitioner Family; Admitting Provider Specialist; PCP Family Medicine Geriatric Medicine; Referring Provider Specialist
PROC: (CPT 27284; principal; 2021-07-26 08:35)
DX: M16.11 Unilateral primary osteoarthritis, right hip (principal); R32 Unspecified urinary incontinence; K21.9 Gastro-esophageal reflux disease without esophagitis; E78.00 Pure hypercholesterolemia, unspecified; F17.290 Nicotine dependence, other tobacco product, uncomplicated; E03.9 Hypothyroidism, unspecified; E55.9 Vitamin D deficiency, unspecified; Z85.46 Personal history of malignant neoplasm of prostate; Z79.899 Other long term (current) drug therapy; Z79.01 Long term (current) use of anticoagulants; Z86.718 Personal history of other venous thrombosis and embolism; Z86.711 Personal history of pulmonary embolism; Z79.890 Hormone replacement therapy
CPT/HCPCS: 27130; 01214; 36415; 36416; 73501; 73502; 76000; 80048; 85025; 85610; 87426; 96365; 96366; 97110; 97116; 97162; 97166; 97530; 97535; 99218; 99251; 99406; C1776; J7120; G0378; G0463; J2405

== ENCOUNTER 2021-08-10 19:02 | Emergency (ER) | payer MEDICARE, SELFPAY ==
[2021-08-10 19:03] VITALS: BP 120/67; PULSE 82; RESP 16; TEMP 36; O2SAT 96; BMI 28.2
--- NOTE | 2021-08-10 19:22 | CT_ITS ---
STUDY: CT BRAIN WITHOUT CONTRAST REASON FOR EXAM: Male, 81 years old. RT FACIAL NUMBNESS SINCE Jul HX:HLD,MS,PROSTATE CANCER numbness TECHNIQUE: Transaxial CT imaging of the brain was performed without administration of intravenous contrast material. Individualized dose optimization techniques were used for this CT. COMPARISON: None FINDINGS: Normal calvarium. Normal soft tissues. Normal size ventricles and extra-axial spaces for the patient''s age. Normal white matter tracts of the cerebral hemispheres. Normal basal ganglia and thalami. Normal brainstem. Normal cerebellum. There is no intracranial hemorrhage. There are no findings of an acute ischemic infarction. Normal visualized paranasal sinuses. ASPECTS 10 CT/Brain/Head without Contrast IMPRESSION: There are no acute intracranial findings. Electronically Signed: Will Reynaga MD at 20:15 EST ,
--- NOTE | 2021-08-10 19:25 | EDS_ITS ---
HPI <DEVANG Hernandez - Last Filed: 08/10/21 21:44> History of Present Illness Chief Complaint: Numb/Ting Narrative Narrative: 81-year-old male presents with right-sided tingling facial numbness. He had a right hip replacement on 07/26 and held his Coumadin for 1 week prior to this. 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 He started again after surgery. On 07/29 he developed right facial numbness and right arm numbness. This has been persistent. There is no weakness. No vision changes, speech changes, swallowing difficulty, or balance issues. He has been recovering well from the hip surgery and is starting PT. Today when he followed up with Dr. Dorado and relayed the symptoms so he recommended he come to the ED to rule out stroke. [facility] <DEVANG Hernandez - Last Filed: 08/10/21 21:44> [facility] Medical History (Updated 08/10/21 @ 20:28 by DEVANG Hernandez) Ambulates with cane Arthritis Back pain Cancer Discoloration of skin DVT (deep venous thrombosis) Gastric reflux High cholesterol History of edema History of pain when walking History of stress test Kidney stones Pulmonary embolism Smoker Thyroid disease Wears dentures Wears glasses Home Medications celecoxib 200 mg PO DAILY 02/23/21 [History Last Taken Unknown] cholecalciferol (vitamin D3) [Vitamin D3] 25 mcg PO DAILY 02/23/21 [History Last Taken Unknown] levothyroxine [Euthyrox] 50 mcg PO DAILY 02/23/21 [History Last Taken Unknown] oxybutynin chloride 10 mg PO PRN PRN 02/23/21 [History Last Taken Unknown] warfarin 5 mg PO DAILY 02/23/21 [History Last Taken 07/19/21] acetaminophen 1,000 mg PO TID #100 tab 07/27/21 [Rx Last Taken Unknown] sennosides-docusate sodium [Stool Softener-Stimulant Laxat] 2 tab PO BID #20 tab 07/27/21 [Rx Last Taken Unknown] tramadol 50 - 100 mg PO Q6H PRN PRN 5 Days #42 tab 07/27/21 [Rx Last Taken Unknown] Allergy/AdvReac Type Severity Reaction Status Date / Time cephalexin [From Keflex] Allergy Rash Verified 07/26/21 07:32 ciprofloxacin [From Cipro] Allergy Rash Verified 07/26/21 07:32 Gadolinium-MRI Contrast Allergy Rash Verified 07/26/21 07:32 Medium [DYE] prednisone Allergy Rash Verified 07/26/21 07:32 shellfish derived Allergy Rash Verified 07/26/21 07:32 Surgical History (Updated 08/04/21 @ 00:01 by Background Daemon) History of cardiac catheterization History of coronary artery stent placement Hx of colonoscopy Hx of cystoscopy Hx of knee surgery Status post total hip replacement, left Social History Smoking Status: Current some day smoker tobacco type: pipe ROS <DEVANG Hernandez - Last Filed: 08/10/21 21:44> ROS ED ROS Narrative Constitutional: Negative for fever, chills, malaise. Eyes: Negative for visual change. ENT: Negative for sore throat, ear pain, rhinorrhea. CVS: Negative for palpitations, chest pain, syncope. Respiratory: Negative for shortness of breath, cough, orthopnea. GI: Negative for abdominal pain, nausea, vomiting, diarrhea, constipation, melena, hematochezia. : Negative for dysuria, hematuria or frequency. Neuro: Positive for sensory dysfunction. Negative for headache, motor dysfunction. Skin: Negative for rash, abscess, or wound. Musc: Negative for joint pain, swelling, trauma. Heme: Negative for easy bruising, bleeding, lymphadenopathy. EXAM <DEVANG Hernandez - Last Filed: 08/10/21 21:44> Physical Exam Narrative Exam Narrative: CONST: Patient sitting in no acute distress. EYES: Normal inspection. ENT: Normal inspection, moist mucous membranes. NECK: Normal inspection. RESP: No respiratory distress, CTAB. CVS: Regular rate and rhythm, no murmur, no gallop. ABD: Soft and nontender, no guarding or rebound, nondistended, no hepatosplenomegaly. Back: Normal inspection, no CVA tenderness. SKIN: Color normal, no rash, warm, dry, intact. EXTREMITIES: Normal appearance, no pedal edema. NEURO: Patient is alert and oriented x4. Follows commands, PERRLA, EOMI with no visual field deficits. Face is symmetric. No upper extremity drift. No noticeable lower extremity drift, but he does have limited ability to hold his right leg up after his hip surgery. Normal [id number] and [id number]. No aphasia or dysarthria. Decreased sensation to right face/arm, and leg to light touch. NIH = 1. PSYCH: Normal affect. Const Vital Signs: 08/10/21 19:03 08/10/21 21:05 08/10/21 21:17 Temperature 96.8 F L 97.7 F L Temperature Source Temporal Temporal Pulse Rate 82 113 H Respiratory Rate 16 16 Blood Pressure 120/67 149/107 H 143/73 H Blood Pressure Mean 84 121 96 Pulse Ox 96 93 Oxygen Delivery Method Room Air Room Air <Dontae Rivero MD - Last Filed: 08/10/21 23:17> Physical Exam Const Vital Signs: 08/10/21 19:03 08/10/21 21:05 08/10/21 21:17 Temperature 96.8 F L 97.7 F L Temperature Source Temporal Temporal Pulse Rate 82 113 H Respiratory Rate 16 16 Blood Pressure 120/67 149/107 H 143/73 H Blood Pressure Mean 84 121 96 Pulse Ox 96 93 Oxygen Delivery Method Room Air Room Air [facility] <DEVANG Hernandez - Last Filed: 08/10/21 21:44> [facility] Narrative Medical decision making narrative: Patient has had right-sided facial and arm numbness since 07/29. He appears well and nontoxic. Afebrile and vital signs within normal limits. He has decreased sensation to light touch in the right face, arm, and leg. He has normal strength and pulses. Otherwise neurovascularly intact so NIH equals 1 for sensory deficits. Basic labs were obtained and are unremarkable. INR is therapeutic at 2.2. CT brain shows no acute process. I am concerned with his unilateral right sided symptoms that he may have a stroke vs critical stenosis that needs an MRI/MRA for evaluation. His also reports that he has had intermittent expressive aphasia although he does not have any on exam. Since it is within 30 days of symptom onset he is at increased risk of subsequent major stroke. Case was discussed with the hospitalist who requested a CTA. This will be obtained and patient will be signed out to the oncoming attending. Diagnosis 1. Right sided paresthesias, rule out CVA 2. Intermittent expressive aphasia Lab Data Labs: Laboratory Results - last 24 hr 08/10/21 08/10/21 08/10/21 19:32 19:32 19:54 WBC 8.3 RBC 4.22 L Hgb 12.1 L Hct 36.8 L MCV 87.2 MCH 28.7 MCHC 32.9 RDW Std Deviation 50.0 H RDW Coeff of [place] 15.8 H Plt Count 347 MPV 9.8 Immature Gran % (Auto) 0.600 Neut % (Auto) 72.5 H Lymph % (Auto) 17.8 L Fisher % (Auto) 7.4 Eos % (Auto) 1.3 Baso % (Auto) 0.4 Absolute Neuts (auto) 6.0 Absolute Lymphs (auto) 1.47 Nucleated RBC % 0 PT 23.4 H INR 2.2 Sodium 140 Potassium 4.1 Chloride 109 H Carbon Dioxide 28.0 Anion Gap 3 L BUN 21 H Creatinine 0.97 Estim Creat Clear Calc 55.72 Est GFR (MDRD) Af Amer 96 Est GFR (MDRD) Non-Af 79 BUN/Creatinine Ratio 21.6 H Glucose 100 Calcium 9.0 Radiography Diagnostic Testing: Clinical Impression(s) from Imaging Studies Brain CT 08/10/21 19:22 IMPRESSION: There are no acute intracranial findings. Electronically Signed: Will Reynaga MD at 20:15 EST , Head/Neck CTA 08/10/21 21:42 IMPRESSION: There is nonvisualization of the distal left posterior cerebral artery. Electronically Signed: Mayco Rodriguez DO at 22:45 EST , ADDENDUM: 08/10/21 4843 IMPRESSION: There is nonvisualization of the distal left posterior cerebral artery. N.B. : The above Results were Read Back by Mayco Rodriguez DO to MD Josefa, and understanding confirmed on 08/10/2021 22:46:12 (ET). Electronically Signed: Mayco Rodriguez DO at 22:45 EST , <Dontae Rivero MD - Last Filed: 08/10/21 23:17> [facility] Narrative Medical decision making narrative: Patient endorsed to me by Dr. Kendell Gilbert to check the CTA on this patient that had already been discussed with [facility] neurology/stroke and the hospitalist. I really seem to call from the radiologist that the distal left posterior cerebral artery was not visualized. In review of the patient's lab, his Coumadin is therapeutic at 2.2. I discussed the patient with the hospitalist who once again did not feel that the patient required observation for MRI and requested that I speak with the [facility] neurology/stroke team again. I spoke with Dr. Villar, who agrees that his stroke has been completed and he has been therapeutic with his INR. It was felt that as he has been symptomatic for 2 weeks and he had a negative CT, that he could follow-up as an outpatient with neurology for MRI. The patient is to continue his Coumadin. I discussed this with the patient and his significant other. He feels well and would like to be discharged and follow-up with an outpatient neurologist. He will also follow-up with his primary care physician for possible MRI and medical treatment of his stroke. Return instructions were reviewed. I do agree that as the patient has been therapeutic, and he has been symptomatic for 2 weeks that he can be discharged to follow-up with neurology for further outpatient work-up as suggested by the stroke team. Disposition is discharged in stable condition. Lab Data Labs: Laboratory Results - last 24 hr 08/10/21 08/10/21 08/10/21 19:32 19:32 19:54 WBC 8.3 RBC 4.22 L Hgb 12.1 L Hct 36.8 L MCV 87.2 MCH 28.7 MCHC 32.9 RDW Std Deviation 50.0 H RDW Coeff of [place] 15.8 H Plt Count 347 MPV 9.8 Immature Gran % (Auto) 0.600 Neut % (Auto) 72.5 H Lymph % (Auto) 17.8 L Fisher % (Auto) 7.4 Eos % (Auto) 1.3 Baso % (Auto) 0.4 Absolute Neuts (auto) 6.0 Absolute Lymphs (auto) 1.47 Nucleated RBC % 0 PT 23.4 H INR 2.2 Sodium 140 Potassium 4.1 Chloride 109 H Carbon Dioxide 28.0 Anion Gap 3 L BUN 21 H Creatinine 0.97 Estim Creat Clear Calc 55.72 Est GFR (MDRD) Af Amer 96 Est GFR (MDRD) Non-Af 79 BUN/Creatinine Ratio 21.6 H Glucose 100 Calcium 9.0 Radiography Diagnostic Testing: Clinical Impression(s) from Imaging Studies Brain CT 08/10/21 19:22 IMPRESSION: There are no acute intracranial findings. Electronically Signed: Will Reynaga MD at 20:15 EST , Head/Neck CTA 08/10/21 21:42 IMPRESSION: There is nonvisualization of the distal left posterior cerebral artery. Electronically Signed: Mayco Rodriguez DO at 22:45 EST , ADDENDUM: 08/10/21 2253 IMPRESSION: There is nonvisualization of the distal left posterior cerebral artery. N.B. : The above Results were Read Back by Mayco Rodriguez DO to MD Josefa, and understanding confirmed on 08/10/2021 22:46:12 (ET). Electronically Signed: Mayco Rodriguez DO at 22:45 EST , Discharge Plan Triage Chief Complaint: Numb/Ting ED Provider: Ibeth Lara Dx/Rx/DC Orders Clinical Impression: Numbness Instructions: ED Stroke, Completed, ED Paraesthesias Prescriptions: No Action celecoxib 200 mg capsule 200 mg PO DAILY RF: 0 oxybutynin chloride 10 mg tablet extended release 24hr 10 mg PO PRN PRN (Reason: Bladder Spasms) RF: 0 levothyroxine [Euthyrox] 50 mcg tablet 50 mcg PO DAILY RF: 0 warfarin 5 mg tablet 5 mg PO DAILY RF: 0 cholecalciferol (vitamin D3) [Vitamin D3] 25 mcg (1,000 unit) Tablet 25 mcg PO DAILY RF: 0 acetaminophen 500 mg Tablet 1,000 mg PO TID Qty: 100 RF: 0 sennosides-docusate sodium [Stool Softener-Stimulant Laxat] 8.6-50 mg Tablet 2 tab PO BID Qty: 20 RF: 0 tramadol 50 mg Tablet 50 - 100 mg PO Q6H PRN PRN (Reason: Pain Score 4-10) 5 Days Qty: 42 RF: 0 Primary Care Provider: Sandip Walker Chi Referrals: Polo Tompkins MD [STAFF PHYSICIAN] - 3-5 Days Sandip Walker Chi, MD [Primary Care Provider] - Activity Restrictions/Additional Instructions: Today the CAT scan of your brain looks normal. I feel you are safe to go home. However, you need to see your primary care doctor next week to discuss getting an MRI of your brain. Please come back to the ER if you have new or worsening symptoms such as weakness of your arms or legs, difficulty with your speech or vision, dizziness etc. Disposition Disposition: Home, Self Care
[2021-08-10 19:52] LABS: Absolute Lymphocyte Count 1.47 X10^3/uL (0.83-4.51); Basophil# 0.03 X10^3/uL; Basophil% 0.4 % (0-1); Eosinophil# 0.11 X10^3/uL; Eosinophils% 1.3 % (0-5); Hematocrit 36.8 % (40-54); Hemoglobin 12.1 g/dL (13.0-16.5); Lymphocyte # 1.47 X10^3/ul (0.83-4.51); Lymphocyte % 17.8 % (19-41); Mean Corp Hgb Conc 32.9 g/dL (32-36); Mean Corpuscular Hgb 28.7 pg (27.0-32.0); Mean Corpuscular Volume 87.2 fL (80-94); Mean Platelet Vol. 9.8 fl (6.2-12.0); Monocyte# 0.61 X10^3/uL; Monocyte% 7.4 % (0-10); NRBC Flagged by Analyzer 0 % (0-5); Neutrophil # 6.01 X10^3/uL (2.7-7.7); Neutrophil % 72.5 % (47-70); Platelet Count 347 K/mm3 (150-450); RBC Distribution Width CV 15.8 % (11.6-14.6); Red Blood Count 4.22 M/mm3 (4.6-6.2); White Blood Count 8.3 K/mm3 (4.4-11.0)
[2021-08-10 20:06] LABS: Anion Gap 3 (5-15); BUN 21 mg/dL (7-18); BUN/Creat Ratio 21.6 RATIO (10-20); Chloride 109 mmol/L (98-107); Creatinine, Serum 0.97 mg/dL (0.70-1.30); EST Glomerular Filtration Rate 79 mL/min (>60); Est Glom Filt Rate - Afr Amer 96 mL/min (>60); Estimated Creatinine Clearance 55.72 ml/min; Glucose 100 mg/dL (74-106); Potassium 4.1 mmol/L (3.5-5.1); Sodium Level 140 mmol/L (136-145)
[2021-08-10 20:22] LABS: International Normalized Ratio 2.2; Prothrombin Time (Protime)PT. 23.4 SECONDS (11.7-14.9)
[2021-08-10 21:05] VITALS: BP 149/107; PULSE 113; RESP 16; TEMP 36.5; O2SAT 93
[2021-08-10 21:17] VITALS: BP 143/73
--- NOTE | 2021-08-10 21:42 | CT_ITS ---
We are attempting to reach an attending provider to discuss findings. An addendum with communication details will be sent when the communication is complete. STUDY: CTA HEAD AND NECK WITH CONTRAST REASON FOR EXAM: Male, 81 years old. Right sided numbness RADIATION DOSAGE (If Supplied By Facility): CTDIvol = ( 23.34 ) mGy, DLP = ( 628.85 ) mGycm TECHNIQUE: CT angiography was performed with a multi-detector CT scanner. Data acquisition was obtained from the skull base through the vertex following intravenous administration of IV 100mL Isovue-370. MIP images were reconstructed from the axial data set. Post-processing of the angiographic images was performed, with multiplanar reformation and 3D reconstruction. Individualized dose optimization techniques were used for this CT. COMPARISON: No relevant priors. FINDINGS: Normal bilateral petrous carotid arteries. Mildly calcified right cavernous carotid artery with a normal supraclinoid bifurcation. Mildly calcified left cavernous carotid artery with a normal supraclinoid bifurcation. Normal right A1 segments of the anterior cerebral artery. Normal left A1 segments of the anterior cerebral artery. Normal intact anterior communicating artery (ACOM). Normal bilateral A2 segments of the anterior cerebral arteries. Normal right M1 and M2 segments of the middle cerebral arteries, with a normal M1 bifurcation. Normal left M1 and M2 segments of the middle cerebral arteries, with a normal M1 bifurcation. Nonvisualization of the posterior communicating arteries (PCOM). Normal bilateral vertebral arteries. Normal basilar artery with a normal basilar bifurcation. The visualized bilateral superior cerebellar (SCA) arteries are normal. Normal right posterior cerebral artery. There is nonvisualization of the distal left posterior cerebral artery. There is no demonstrated aneurysm of the [place]. There is a possible left temporal region attenuation medially.. Correlation with MRI is recommended. AORTIC ARCH: Normal visualized aortic arch. Normal origins of the brachiocephalic, left common carotid, and left subclavian arteries. RIGHT CAROTID ARTERIES: Normal right common carotid artery (CCA). Normal right common carotid bulb. Normal origin of the right internal carotid (ICA) artery without a hemodynamically significant stenosis. Normal visualized cervical portion of the right internal carotid artery. Normal origin of the right external carotid artery (ECA). LEFT CAROTID ARTERIES: Normal left common carotid artery (CCA). Focal calcification at the left common carotid bulb. Normal origin of the left internal carotid (ICA) artery without a hemodynamically significant stenosis. Normal visualized cervical portion of the left internal carotid artery. Normal origin of the left external carotid artery (ECA). VERTEBRAL ARTERIES: Normal bilateral vertebral arteries. CT/STROKE CTA Head AND Neck W/Con IMPRESSION: There is nonvisualization of the distal left posterior cerebral artery. Electronically Signed: Mayco Rodriguez DO at 22:45 EST Reading Location ID and State: [facility] / [place] Tel [phone], Service support ,
[2021-08-10 23:35] VITALS: BP 134/70; PULSE 76; RESP 17; O2SAT 98
== END 2021-08-10 23:36 | disposition home or self-care (01) ==
PROVIDERS: Emergency Provider Physician Assistant; PCP Family Medicine Geriatric Medicine; Visit Provider Physician Assistant
DX: R20.2 Paresthesia of skin (principal); R47.01 Aphasia; F17.200 Nicotine dependence, unspecified, uncomplicated; E78.00 Pure hypercholesterolemia, unspecified; K21.9 Gastro-esophageal reflux disease without esophagitis; M19.90 Unspecified osteoarthritis, unspecified site; Z79.01 Long term (current) use of anticoagulants; Z79.890 Hormone replacement therapy; Z79.899 Other long term (current) drug therapy; Z86.718 Personal history of other venous thrombosis and embolism; Z86.711 Personal history of pulmonary embolism; Z96.642 Presence of left artificial hip joint; Z95.5 Presence of coronary angioplasty implant and graft
CPT/HCPCS: 70450; 70496; 70498; 80048; 85025; 85610; 99282; Q9967; A4216

== ENCOUNTER 2021-09-07 16:18 | Outpatient (CLI) | payer MEDICARE, SELFPAY ==
--- NOTE | 2021-09-07 16:31 | RAD_ITS ---
EXAM: PA and lateral. HISTORY: SOB TECHNIQUE: XR Chest 2 Views COMPARISON: March 23, 2013. LIMITATIONS: None. HEART: Normal size. TUBES/LINES: None. LUNGS: Mild chronic-appearing increased lung markings. No infiltrates or effusions. PLEURA: Normal. MEDIASTINUM: Similar mild tortuous contour of the descending thoracic aorta and mildly prominent appearance of the arch similar to prior exam. No alicia mediastinal widening. BONES/SOFT TISSUES: Minimal thoracic spondylosis again noted. OTHER: Normal. IMPRESSION: Stable chest. Electronically Signed: Noemi Dow MD at 21:44 EDT , RAD/Chest PA and Lateral
== END 2021-09-07 23:59 | disposition home or self-care (01) ==
LOC: RAD 16:23
PROVIDERS: PCP Family Medicine Geriatric Medicine; Referring Provider Family Medicine Geriatric Medicine; Visit Provider Family Medicine Geriatric Medicine
DX: R06.02 Shortness of breath (principal)
CPT/HCPCS: 71046

== ENCOUNTER → 2021-09-28 | Outpatient (CLI) | payer MEDICARE, SELFPAY ==
--- NOTE | 2021-09-28 17:50 | MRI_ITS ---
STUDY: MRI BRAIN WITHOUT CONTRAST REASON FOR EXAM: Male, 81 years old. 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 COMPARISON: CT brain and CTA of 08/10/2021. FINDINGS: Mild cortical atrophy is present, slightly greater on the left, with associated prominence of the cortical sulci. The ventricles are normal in size and shape. There is no midline shift. 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 Diffusion-weighted images show no restricted diffusion to indicate acute infarction. Gradient images show no parenchymal blood products. Normal bilateral basal ganglia. Normal thalami. There is no extra-axial fluid accumulation. Normal flow voids within the major intracranial circulation suggesting patency by spin echo criteria. Normal sella turcica, pituitary gland, infundibular stalk, optic chiasm and hypothalamus. Normal midbrain, sneha and medulla. Normal cerebellum. Normal basal cisterns. The seventh/8th cranial nerve complexes are symmetric. The cerebellar tonsils are normally positioned. Visualized globes are symmetric. Visualized paranasal sinuses are clear. MRI/Brain without Contrast IMPRESSION: Small focus of developing encephalomalacia within the medial left temporal lobe, corresponding to a portion of the left [employer] distribution. No acute infarction. No intracranial mass. No intracranial hemorrhage. Electronically Signed: Stanley Hernandez MD at 8:07 EDT ,
== END | disposition home or self-care (01) ==
PROVIDERS: PCP Family Medicine Geriatric Medicine; Referring Provider Family Medicine Geriatric Medicine; Visit Provider Family Medicine Geriatric Medicine
DX: I66.29 Occlusion and stenosis of unspecified posterior cerebral artery (principal)
CPT/HCPCS: 70551

== ENCOUNTER → 2021-11-13 | Outpatient (CLI) | payer MEDICARE, SELFPAY ==
[2021-11-13 17:50] LABS: Absolute Lymphocyte Count 1.73 X10^3/uL (0.83-4.51); Absolute Neutrophil Count 6.2 X10^3/uL (2.0-7.7); Basophil# 0.05 X10^3/uL; Basophil% 0.6 % (0-1); Eosinophil# 0.09 X10^3/uL; Hematocrit 43.5 % (40-54); Hemoglobin 13.9 g/dL (13.0-16.5); Lymphocyte # 1.73 X10^3/ul (0.83-4.51); Lymphocyte % 19.6 % (19-41); Mean Corpuscular Hgb 28.4 pg (27.0-32.0); Mean Corpuscular Volume 88.8 fL (80-94); Mean Platelet Vol. 9.6 fl (6.2-12.0); Monocyte# 0.74 X10^3/uL; Monocyte% 8.4 % (0-10); NRBC Flagged by Analyzer 0 % (0-5); Neutrophil # 6.16 X10^3/uL (2.7-7.7); Neutrophil % 69.7 % (47-70); Platelet Count 201 K/mm3 (150-450); RBC Distribution Width CV 14.9 % (11.6-14.6); RBC Distribution Width SD 48.4 fl (35.1-43.9); White Blood Count 8.8 K/mm3 (4.4-11.0)
[2021-11-13 18:48] LABS: ALB/GLOB Ratio 0.9 RATIO (0.9-2.4); AST(SGOT) 32 U/L (15-37); Alanine Aminotransfer ALT/SGPT 36 U/L (16-61); Albumin, Serum 3.5 g/dL (3.2-5.0); Alkaline Phosphatase 96 U/L (45-117); Anion Gap 6 (5-15); BUN 18 mg/dL (7-18); Chloride 107 mmol/L (98-107); Creatinine, Serum 0.82 mg/dL (0.70-1.30); EST Glomerular Filtration Rate 96 mL/min (>60); Est Glom Filt Rate - Afr Amer 116 mL/min (>60); Globulin 3.7 g/dL (2.2-4.2); Glucose 92 mg/dL (74-106); Potassium 4.2 mmol/L (3.5-5.1); Protein, Total 7.2 g/dL (6.4-8.2); Sodium Level 138 mmol/L (136-145); Thyroid Stim Hormone (TSH) 2.05 uIU/mL (0.358-3.74); Uric Acid 4.8 mg/dL (3.5-7.2)
[2021-11-14 08:44] LABS: Vitamin D,25 Hydroxy 39.4 ng/mL
== END | disposition home or self-care (01) ==
LOC: LAB 17:27
PROVIDERS: PCP Family Medicine Geriatric Medicine; Referring Provider Family Medicine Geriatric Medicine; Visit Provider Family Medicine Geriatric Medicine
DX: R53.83 Other fatigue (principal); M10.9 Gout, unspecified; E55.9 Vitamin D deficiency, unspecified
CPT/HCPCS: 36415; 80053; 82306; 84443; 84550; 85025

== ENCOUNTER → 2021-11-28 | Outpatient (CLI) | payer MEDICARE, SELFPAY ==
--- NOTE | 2021-11-28 13:47 | CDU_ITS ---
Reason For Study: Cerebral infarction Rt. Velocities/BP Lt. Velocities/BP Prox CCA 134.5/22.6 cm/sec. Prox CCA 93.7/17.9 cm/sec. Mid CCA 127.9/22.6 cm/sec. Mid CCA 82.7/16.8 cm/sec. Dist CCA 97.2/22.6 cm/sec. Dist CCA 74/17.9 cm/sec. Prox ICA 84.6/18.8 cm/sec. Prox ICA 45.6/17.3 cm/sec. Mid ICA 91.9/26.1 cm/sec. Mid ICA 69.5/23.4 cm/sec. Dist ICA 91.9/22.5 cm/sec. Dist ICA 79.5/24.5 cm/sec. Rt. ICA/CCA = 0.72. Lt. ICA/CCA = 0.96. Prox ECA 108.2/11.6 cm/sec. Prox ECA 91.5/9.1 cm/sec. Rt. Vert. 35.2/8.1 cm/sec. Lt. Vert. 29.1/9 cm/sec. Right Extracranial There is intimal thickening but no significant atherosclerotic plaque noted in the right common carotid artery. There is intimal thickening but no significant atherosclerotic plaque noted in the right internal carotid artery. The right internal carotid artery is very tortuous. There is intimal thickening but no significant atherosclerotic plaque noted in the right external carotid artery. Left Extracranial There is homogeneous, smooth atherosclerotic plaque noted in the left common carotid artery. There is intimal thickening but no significant atherosclerotic plaque noted in the left internal carotid artery. There is intimal thickening but no significant atherosclerotic plaque noted in the left external carotid artery. Antegrade flow is noted in the left vertebral artery. Procedure Carotid Duplex 34413. This is a Carotid Duplex examination using B-mode, color flow and specral Doppler. Exam performed in department. VL/Carotid Duplex Ultrasound Interpretation Summary No significant atherosclerotic plaque or stenosis noted in the internal carotid arteries bilaterally. Flow within the vertebral arteries is antegrade bilaterally. Ordering Physician: Mumtaz Mcclain Referring Physician: Sandip Walker Chi Performed By: Mirian Muir RVT
== END | disposition home or self-care (01) ==
LOC: CVS 13:42
PROVIDERS: PCP Family Medicine Geriatric Medicine; Visit Provider Psychiatry & Neurology Neurology
DX: Z86.73 Personal history of transient ischemic attack (TIA), and cerebral infarction without residual deficits (principal)
CPT/HCPCS: 93880

== ENCOUNTER 2022-05-07 16:08 | Outpatient (CLI) | payer MEDICARE, SELFPAY ==
--- NOTE | 2022-05-07 16:28 | VDLE_ITS ---
Reason For Study: EDEMA RIGHT LEFT GSV is normal. CFV is compressible, spontaneous, phasic, CFV is compressible, spontaneous, phasic, competent, and demonstrates normal competent and demonstrates normal augmentation. augmentation. FV is compressible, spontaneous, phasic, competent and demonstrates normal augmentation. POP V is compressible, spontaneous, phasic, competent and demonstrates normal augmentation. T/P Trunk is compressible. PTV is compressible. RT PerV is compressible. Unable to visualize distal calf veins due to open wounds. Pitting edema noted below the knee. Procedure This is a venous duplex using B-mode, color flow and spectral Doppler. Exam performed in department. The exam was diagnostic. A preliminary report was called and/or faxed to Dr. Carcamo office. VL/Venous Duplex US, Unilateral Interpretation Summary Deep veins of the right lower extremity are patent and compressible segmentally . There is no evidence of right lower extremity deep vein thrombosis. Valvular competence jerman ears intact within the proximal deep venous system on the right . The right great saphenous vein a ppears patent and compressible segmentally. Distal calf veins in the right lower extremity were n ot visualized due to the presence of open wounds. Ordering Physician: Sandip Walker Chi Referring Physician: Sandip Walker Chi Performed By: Jesus Alberto Velez, RVT
== END 2022-05-07 23:59 | disposition home or self-care (01) ==
LOC: CVS 16:12
PROVIDERS: PCP Family Medicine Geriatric Medicine; Referring Provider Family Medicine Geriatric Medicine; Visit Provider Family Medicine Geriatric Medicine
DX: L03.115 Cellulitis of right lower limb (principal); R60.9 Edema, unspecified; B95.62 Methicillin resistant Staphylococcus aureus infection as the cause of diseases classified elsewhere; S81.801A Unspecified open wound, right lower leg, initial encounter; X58.XXXA Exposure to other specified factors, initial encounter
CPT/HCPCS: 36415; 80048; 85025; 87070; 87075; 87077; 87101; 87102; 87186; 87205; 87206; 87640; 93971

== ENCOUNTER → 2022-05-07 | Outpatient (CLI) | payer MEDICARE, SELFPAY ==
[2022-05-07 16:51] LABS: Basophil# 0.03 X10^3/uL; Basophil% 0.4 % (0-1); Eosinophil# 0.11 X10^3/uL; Eosinophils% 1.3 % (0-5); Hematocrit 42.5 % (40-54); Hemoglobin 13.4 g/dL (13.0-16.5); Lymphocyte % 18.7 % (19-41); Mean Corp Hgb Conc 31.5 g/dL (32-36); Mean Corpuscular Hgb 27.7 pg (27.0-32.0); Mean Platelet Vol. 10.5 fl (6.2-12.0); Monocyte# 0.81 X10^3/uL; Monocyte% 9.5 % (0-10); NRBC Flagged by Analyzer 0 % (0-5); Neutrophil # 5.95 X10^3/uL (2.7-7.7); Neutrophil % 69.5 % (47-70); Platelet Count 242 K/mm3 (150-450); RBC Distribution Width CV 14.5 % (11.6-14.6); RBC Distribution Width SD 46.5 fl (35.1-43.9); Red Blood Count 4.83 M/mm3 (4.6-6.2); White Blood Count 8.6 K/mm3 (4.4-11.0)
[2022-05-07 17:14] LABS: Anion Gap 6 (5-15); BUN 18 mg/dL (7-18); BUN/Creat Ratio 22.5 RATIO (10-20); Calcium,Total 9.2 mg/dL (8.5-10.1); Chloride 108 mmol/L (98-107); EST Glomerular Filtration Rate 99 mL/min (>60); Est Glom Filt Rate - Afr Amer 120 mL/min (>60); Glucose 101 mg/dL (74-106); Potassium 4.2 mmol/L (3.5-5.1); Sodium Level 140 mmol/L (136-145)
[2022-05-08 11:11] LABS: M R Staph aureus DNA By PCR Negative (Negative); Probe Check PASS; Specimen Processing Control PASS; Staph aureus DNA By PCR POSITIVE (Negative)
== END | disposition home or self-care (01) ==
LOC: POLAB3 15:59
PROVIDERS: PCP Family Medicine Geriatric Medicine; Visit Provider Family Medicine Geriatric Medicine
DX: L03.115 Cellulitis of right lower limb (principal); R60.9 Edema, unspecified; B95.62 Methicillin resistant Staphylococcus aureus infection as the cause of diseases classified elsewhere; S81.801A Unspecified open wound, right lower leg, initial encounter; X58.XXXA Exposure to other specified factors, initial encounter
CPT/HCPCS: 36415; 80048; 85025; 87075; 87101; 87640

== ENCOUNTER → 2022-05-16 | Outpatient (CLI) | payer MEDICARE, SELFPAY ==
[2022-05-16 17:22] LABS: Absolute Lymphocyte Count 1.63 X10^3/uL (0.83-4.51); Absolute Neutrophil Count 5.6 X10^3/uL (2.0-7.7); Basophil# 0.04 X10^3/uL; Basophil% 0.5 % (0-1); Eosinophil# 0.13 X10^3/uL; Eosinophils% 1.6 % (0-5); Hematocrit 41.4 % (40-54); Hemoglobin 13.5 g/dL (13.0-16.5); Lymphocyte # 1.63 X10^3/ul (0.83-4.51); Mean Corp Hgb Conc 32.6 g/dL (32-36); Mean Corpuscular Hgb 28.2 pg (27.0-32.0); Mean Corpuscular Volume 86.4 fL (80-94); Mean Platelet Vol. 11.1 fl (6.2-12.0); Monocyte# 0.77 X10^3/uL; Monocyte% 9.4 % (0-10); NRBC Flagged by Analyzer 0 % (0-5); Neutrophil # 5.58 X10^3/uL (2.7-7.7); Neutrophil % 68.3 % (47-70); Platelet Count 249 K/mm3 (150-450); RBC Distribution Width CV 14.6 % (11.6-14.6); RBC Distribution Width SD 45.7 fl (35.1-43.9); Red Blood Count 4.79 M/mm3 (4.6-6.2); White Blood Count 8.2 K/mm3 (4.4-11.0)
[2022-05-16 18:02] LABS: Vitamin D,25 Hydroxy 45.6 ng/mL
[2022-05-16 18:21] LABS: ALB/GLOB Ratio 0.8 RATIO (0.9-2.4); AST(SGOT) 23 U/L (15-37); Alanine Aminotransfer ALT/SGPT 29 U/L (16-61); Albumin, Serum 3.2 g/dL (3.2-5.0); Alkaline Phosphatase 105 U/L (45-117); Anion Gap 7 (5-15); BUN 21 mg/dL (7-18); BUN/Creat Ratio 24.2 RATIO (10-20); Chloride 107 mmol/L (98-107); Creatinine, Serum 0.87 mg/dL (0.70-1.30); EST Glomerular Filtration Rate 90 mL/min (>60); Est Glom Filt Rate - Afr Amer 109 mL/min (>60); Globulin 4.1 g/dL (2.2-4.2); Glucose 97 mg/dL (74-106); Potassium 4.4 mmol/L (3.5-5.1); Protein, Total 7.3 g/dL (6.4-8.2); Sodium Level 138 mmol/L (136-145); Thyroid Stim Hormone (TSH) 2.15 uIU/mL (0.358-3.74)
== END | disposition home or self-care (01) ==
LOC: POLAB3 15:17
PROVIDERS: PCP Family Medicine Geriatric Medicine; Visit Provider Family Medicine Geriatric Medicine
DX: R53.83 Other fatigue (principal); E55.9 Vitamin D deficiency, unspecified
CPT/HCPCS: 36415; 80053; 82306; 84443; 85025

== ENCOUNTER 2022-06-05 14:30 | Outpatient (RCR) | payer MEDICARE, SELFPAY ==
[2022-05-28 13:35] VITALS: BP 149/72; PULSE 77; TEMP 36.2; BMI 25.7
--- NOTE | 2022-05-28 14:29 | PCM.WC.HP ---
History of Present Illness Date of Service: 05/28/22 Chief Complaint: Right medial leg ulcer and edema History of Wound: 82 year old male presents to the wound healing center for evaluation of his right leg that started 4 weeks ago. He recently saw his PCP, Dr. Walker who placed him on an antibiotic for cellulitis and referred him to us. He is experiencing leg edema and increased drainage. He has not been able to wear compression stockings because his drainage from his leg soaks everything and then it drains into his shoes. 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 Progress of Wound: Right leg is edematous and is excoriated with weeping due to the severity of the edema. Skin is very erythematous and macerated with an ulcer on right medial leg. [facility] Medical History (Updated 06/04/22 @ 13:51 by Magaly Myers NP, SALES AND SERVICE ADVISOR-C) Ambulates with cane Arthritis Back pain Cancer Discoloration of skin DVT (deep venous thrombosis) Gastric reflux High cholesterol History of edema History of pain when walking History of stress test Kidney stones Pulmonary embolism Smoker Thyroid disease Wears dentures Wears glasses Home Medications celecoxib 200 mg capsule 200 mg PO DAILY 02/23/21 [History Last Taken Unknown] cholecalciferol (vitamin D3) 25 mcg (1,000 unit) tablet (Vitamin D3) 25 mcg PO DAILY 02/23/21 [History Last Taken Unknown] levothyroxine 50 mcg tablet (Euthyrox) 50 mcg PO DAILY 02/23/21 [History Last Taken Unknown] oxybutynin chloride 10 mg tablet,extended release 24 hr 10 mg PO PRN PRN Bladder Spasms 02/23/21 [History Last Taken Unknown] warfarin 5 mg tablet 5 mg PO DAILY 02/23/21 [History Last Taken 07/19/21] acetaminophen 500 mg tablet 1,000 mg PO TID #100 tabs 07/27/21 [Rx Last Taken Unknown] sennosides 8.6 mg-docusate sodium 50 mg tablet (Stool Softener-Stimulant Laxative) 2 tab PO BID #20 tabs 07/27/21 [Rx Last Taken Unknown] tramadol 50 mg tablet 50 - 100 mg PO Q6H PRN PRN Pain Score 4-10 5 days #42 tabs 07/27/21 [Rx Last Taken Unknown] Allergy/AdvReac Type Severity Reaction Status Date / Time cephalexin [From Keflex] Allergy Rash Verified 07/26/21 07:32 ciprofloxacin [From Cipro] Allergy Rash Verified 07/26/21 07:32 Gadolinium-MRI Contrast Allergy Rash Verified 07/26/21 07:32 Medium [DYE] prednisone Allergy Rash Verified 07/26/21 07:32 shellfish derived Allergy Rash Verified 07/26/21 07:32 Surgical History (Updated 06/04/22 @ 13:51 by Magaly Myers SALES AND SERVICE ADVISOR, SALES AND SERVICE ADVISOR-C) History of cardiac catheterization History of coronary artery stent placement Hx of colonoscopy Hx of cystoscopy Hx of knee surgery Status post total hip replacement, left Social History Smoking Status: Current some day smoker tobacco type: pipe ROS Constitutional Constitutional: Denies chills, frequent falls, headache(s) or malaise Eyes Eyes: Reports systems reviewed and no addt'l complaints, except as documented ENT HEENT: Reports systems reviewed and no addt'l complaints, except as documented Cardiovascular Cardiovascular: Reports pedal edema; Denies chest pain, chest pain at rest or tachypnea Respiratory/Chest Respiratory/Chest: Reports systems reviewed and no addt'l complaints, except as documented Gastrointestinal Gastrointestinal: Denies fecal incontinence, nausea or vomiting Genitourinary Genitourinary: Reports none Musculoskeletal Musculoskeletal: Reports extremity pain, joint stiffness and tingling Integumentary Integumentary: Reports skin ulcer and skin swelling; Denies pruritus Neurologic Neurologic: Denies behavior changes, dizziness or sensory deficit Psychiatric Psychiatric: Reports systems reviewed and no addt'l complaints, except as documented Endocrine Endocrinology: Reports as per HPI Allergic/Immunologic Allergic/Immunologic: Reports none Vital Signs Vital Signs Vital Signs: 05/28/22 13:35 Temperature 97.1 F L Temperature Source Temporal Pulse Rate 77 Blood Pressure 149/72 H Blood Pressure Mean 97 Blood Pressure Source Monitor Weight Weight: 190 lb Body Mass Index (BMI) 25.7 Physical Exam Const alert, oriented x3 and no apparent distress HEENT normocephalic Eyes General Eye: normal appearance of both eyes Neck full ROM Resp normal respiratory effort, normal air movement and clear to auscultation bilaterally Cardio regular rate and regular rhythm GI normal to inspection, nondistended, normoactive bowel sounds Back/Spine normal ROM Extremity Extremity Narrative: Right sided weakness from previous stroke Skin Skin Narrative: Right leg is erythematous with +4 edema with weeping of his skin. Wound Narrative: R ight medial leg ulcer is pink with slough present. Wound culture obtained. Neuro oriented x3 Neuro Narrative: Right sided weakness from previous stroke Sensorium / Orientation: awake and alert Psych thought process normal and cooperative Debridement Note Debridement Note Wound debrided: Medial leg ulcer Laterality: Right Wound Grade/Stage: Stage II Type of Debridement: Excisional debridement Anesthesia Used: 5% Lidocaine Gel Depth: Down to and including healthy tissue and in the subcutaneous layer Percentage of wound debrided: 100 Instrument Used: 7mm curette Tissue Removed: Non viable tissue and slough Severity: Fat Layer Exposed Amount of bleeding with debridement: Mild Bleeding Controlled with: Compression and gauze Patient tolerated procedure: Patient tolerated procedure well Post-Debridement Measurements and Additional Note: Post-Debridement Measurements/Treatment WC - Nurse 1 - General Ulcer Assessment Start: 05/28/22 13:28 Freq: Status: Active Protocol: DEISY Activity Type Activity Date Activity User E-sign Co-sign Detail Recorded Client Recorded Date Recorded By Document 05/28/22 13:35 RI [id number] 05/28/22 13:43 CHULA 05/28/22 13:35 WC - Today's Visit Information Type of service Initial Visit Arrival Mode Ambulatory,Cane Patient Identification Verified (Name & Yes ) Patient Requires Transmission-Based No Precautions Height and Weight Height 6 ft Weight 190 lb Weight in Pounds 190.0 lbs Body Mass Index (BMI) 25.7 BMI Classification Overweight BSA - Rory 2.08 Vital Signs Temperature (97.8 F-99.1 F) 97.1 F L Temperature Source Temporal Pulse Rate (60-100) 77 Pulse Location Monitor Blood Pressure (90/60-120/80) 149/72 H Blood Pressure Mean 97 Source Monitor History Since Last Visit- (Skip if this is Patient's initial visit) Have you changed medications since your No last visit? Any new allergies or adverse reactions No Had a fall/change in ADL's that may No increase risk of falls Signs or symptoms of abuse and/or No neglect since last visit Have you been in the hospital since your No last visit? Has dressing in place as prescribed Yes Has compression in place as prescribed N/A Has offloadiing in place as prescribed N/A Experienced any changes in pain level or No management Left Footwear Regular Shoe Right Footwear Regular Shoe Pain Scale: 0-10 Numeric Is Patient Pain Free? No WC - Nurse 1 - General Ulcer Measurement Start: 05/28/22 13:28 Freq: Status: Active Protocol: Activity Type Activity Date Activity User E-sign Co-sign Detail Recorded Client Recorded Date Recorded By Document 05/28/22 13:35 CHULA [id number] 05/28/22 13:43 CHULA 05/28/22 13:35 Wound Center Nurse 1 #1 R medial lower extremity -Current Size (cm) - Length 7.7 -Current Size (cm) - Width 12 -Current Size (cm) - Depth 0.1 -Total Square Cm 92.4 -Date of Last Picture (Recall this 05/28/22 field) -Tunneling No -Undermining/Tunneling No -Circular Undermining No -Change in Wound Grade/Stage No -Exudate Amt Large -Exudate Type Serosanguineous -Wound Margin Distinct, Outline Attached -Granulation Amt None Present (0 %) -Granulation Quality N/A -Slough/Fibrin Yes -Necrosis Amt None Present (0 %) -Structure Exposed N/A -Texture (Betty-wound Skin Appearance) Assessed, Excoriation, Rash -Moisture (Betty-wound Skin Appearance) Assessed, Weeping -Color (Betty-wound Skin Appearance) Assessed, Erythema -Temperature (Betty-wound Skin No Abnormality Appearance) (Pt Warm) -Tenderness on Palpation (Betty-wound Yes Skin Appearance) -Ulcer Cleansing Soap and Water -Foul Odor after Cleansing No -Anesthetic Used 5% Lidocaine Gel Lower Limb Edema Present No Right Calf (cm) 42 Right Ankle (cm) 25.5 Left Calf (cm) 32.7 Left Ankle (cm) 25 WC - Nurse 2 - General Ulcer CM Notes Start: 05/28/22 13:28 Freq: Status: Active Protocol: Activity Type Activity Date Activity User E-sign Co-sign Detail Recorded Client Recorded Date Recorded By Document 05/28/22 14:06 VICKI [id number] 05/28/22 14:15 VICKI 05/28/22 14:06 Wound Center Nurse 2 #1 R medial lower extremity -Time 14:06 -Correct Patient Yes -Correct Side, Site, Position Yes -Correct Procedure Yes -Procedure Performed Yes -Type of Procedure Debridement -Clinical Debridement Subcutaneous -Tissue Removed Subcutaneous -Post Debridement (cm) - Length 7.0 -Post Debridement (cm) - Width 6.5 -Post Debridement (cm) - Depth 0.2 -Total Square (Post) (cm) 45.50 -Area of Debridement (cm) - Length 7.0 -Area of Debridement (cm) - Width 6.5 -Total Square (Area) (cm) 45.50 -Tunneling No -Undermining/Tunneling No -Circular Undermining No -Wound/Ulcer Outcome Not Healed -Ulcer Cleansing Rinsed/ Irrigated with Saline -Foul Odor after Cleansing No -Bioengineered Tissue No -Bleeding Controlled with Pressure -Treatment Response Procedure Tolerated Well -Offloading No -Debridement - Subq, 1st 20sq cm Yes -Debridement, SubQ, ea addt'l 20sq cm 2 or part thereof Pain Scale: 0-10 Numeric Is Patient Pain Free? Yes Charges/Coding Visit Charges Office Visits / Consults: 97332 OV L4 Est (25 modifier) Procedures Integumentary 111xxx-113xx: 17516 Yuliana subq tissue 20 sq cm/< Add On Codes: 86428 Yuliana subq tissue add-on (x2) Assessment/Plan Assessment/Plan (1) Ulcer of right lower extremity with fat layer exposed: CODE(S): L97.912 - Non-pressure chronic ulcer of unspecified part of right lower leg with fat layer exposed (2) Edema of right lower leg: CODE(S): R60.0 - Localized edema (3) History of stroke: CODE(S): Z86.73 - Personal history of transient ischemic attack (TIA), and cerebral infarction without residual deficits (4) History of bilateral hip replacements: CODE(S): Z96.643 - Presence of artificial hip joint, bilateral PLAN: Plan Patient evaluated at the wound center today. Wound care - Silvercel covered with gauze daily after washing with soap and water. A wound culture was obtained today.? A positive culture will necessitate antibiotic therapy. Will not start him on prophylactic antibiotics until culture results obtained. Instructed patient if redness, pain, swelling worsen, or develop fevers and chills he should seek emergent care. Follow up one week. Greater than 30 minutes spent with patient evaluating and plan of care, reviewing records and documenting.
[2022-06-05 14:15] VITALS: BP 127/78; PULSE 96; RESP 18; TEMP 36; BMI 25.7
--- NOTE | 2022-06-05 15:44 | PN.PCM_ITS ---
History of Present Illness Date of Service: 06/05/22 Chief Complaint: Right medial leg ulcer and edema History of Wound: 82 year old male presents to the wound healing center for evaluation of his right leg that started 4 weeks ago. He recently saw his PCP, Dr. Walker who placed him on an antibiotic for cellulitis and referred him to us. He is experiencing leg edema and increased drainage. He has not been able to wear compression stockings because his drainage from his leg soaks everything and then it drains into his shoes. 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 Progress of Wound: Patient comes in to the wound center today with his significant other. He has been staying with her for a week and she states he is not able to care for himself and his wound. His wound has been draining large amounts of drainage. She states he has ruined her carpet and her mattress with the amount of his drainage. She called the squad for him on Saturday but he refused to be transferred. She states that they never received any wound supplies, but he has been staying at her house and no one has been to his place. With all the snow, she has not been able to get up his driveway. She states that the paramedics suggested that he wash his leg with soap and water and then place a fan on it to help dry up the drainage. They have been doing this and she states that it does seem to be helping to dry it up. Patient refuses to wear compression because it is too painful. His ulcer today is now a cluster and is much larger in sized. It is almost circumferential around his leg. Objective Data Objective Data Vital Signs: Vital Signs Temp Pulse Resp BP O2 Del Method 96.8 F L 96 18 127/78 H Room Air 06/05/22 14:15 06/05/22 14:15 06/05/22 14:15 06/05/22 14:15 06/05/22 14:15 Oxygen Delivery Method Room Air Weight: 190 lb Body Mass Index (BMI) 25.7 Lab / Micro Data Micro: Microbiology 05/29/22 14:10 Wound Abcess - Leg, Right Gram Stain - Final 05/29/22 14:10 Wound Abcess - Leg, Right Wound Culture - Final Pseudomonas aeroginosa Staphylococcus aureus 05/29/22 14:10 Wound Abcess - Leg, Right Anaerobic Culture - Final No anaerobic bacteria isolated. Charges/Coding Procedures Integumentary 111xxx-113xx: 63636 Yuliana subq tissue 20 sq cm/< Add On Codes: 37501 Yuliana subq tissue add-on (x11) Debridement Note Debridement Note Wound debrided: Medial leg ulcer Laterality: Right Wound Grade/Stage: Stage II Type of Debridement: Excisional debridement Anesthesia Used: 5% Lidocaine Gel Depth: Down to and including healthy tissue and in the subcutaneous layer Percentage of wound debrided: 100 Instrument Used: 7mm curette Tissue Removed: Non viable tissue and slough Severity: Fat Layer Exposed Amount of bleeding with debridement: Mild Bleeding Controlled with: Compression and gauze Patient tolerated procedure: Patient tolerated procedure well Post-Debridement Measurements and Additional Note: Post-Debridement Measurements/Treatment WC - Nurse 1 - General Ulcer Assessment Start: 05/28/22 13:28 Freq: Status: Active Protocol: DEISY Activity Type Activity Date Activity User E-sign Co-sign Detail Recorded Client Recorded Date Recorded By Document 05/28/22 13:35 MT [id number] 05/28/22 13:43 AK Document 06/05/22 14:15 [id number] 06/05/22 14:32 05/28/22 06/05/22 13:35 14:15 - Today's Visit Information Type of service Initial Visit Follow-up Visit (Physician/QUALITY AND RELIABILITY ENGINEER ) Arrival Mode Ambulatory,Cane Ambulatory,Cane Transfer Assistance None Accompanied by significant other Patient Identification Verified (Name & Yes Yes ) Patient Requires Transmission-Based No No Precautions Safety Precautions Fall Prevention Height and Weight Height 6 ft Weight 190 lb Weight in Pounds 190.0 lbs Body Mass Index (BMI) 25.7 25.7 BMI Classification Overweight Overweight BSA - Rory 2.08 Vital Signs Temperature (97.8 F-99.1 F) 97.1 F L 96.8 F L Temperature Source Temporal Temporal Pulse Rate (60-100) 77 96 Pulse Location Monitor Monitor Respiratory Rate (12-18) 18 Respiratory rate source Observation Oxygen Delivery Method Room Air Blood Pressure (90/60-120/80) 149/72 H 127/78 H Blood Pressure Mean (mm Hg) 97 94 Source Monitor Monitor Position Sitting Blood Pressure Location Left Arm History Since Last Visit- (Skip if this is Patient's initial visit) Have you changed medications since your No No last visit? Any new allergies or adverse reactions No No Had a fall/change in ADL's that may No No increase risk of falls Signs or symptoms of abuse and/or No No neglect since last visit Have you been in the hospital since your No No last visit? Has dressing in place as prescribed Yes Yes Has compression in place as prescribed N/A Yes Has offloadiing in place as prescribed N/A N/A Experienced any changes in pain level or No No management Left Footwear Regular Shoe Regular Shoe Right Footwear Regular Shoe Regular Shoe Pain Scale: 0-10 Numeric Is Patient Pain Free? No Yes WC - Nurse 1 - General Ulcer Measurement Start: 05/28/22 13:28 Freq: Status: Active Protocol: Activity Type Activity Date Activity User E-sign Co-sign Detail Recorded Client Recorded Date Recorded By Document 05/28/22 13:35 AK [id number] 05/28/22 13:43 AK Document 06/05/22 14:15 MW [id number] 06/05/22 14:32 MW 05/28/22 06/05/22 13:35 14:15 Wound Center Nurse 1 #1 R medial lower extremity -Combined with other wound No -Current Size (cm) - Length 7.7 13.0 -Current Size (cm) - Width 12 23.0 -Current Size (cm) - Depth 0.1 0.1 -Total Square Cm 92.4 299.00 -Date of Last Picture (Recall this 05/28/22 06/05/22 field) -Photo Taken Yes -Epithelialization None Present -Tunneling No No -Undermining/Tunneling No -Circular Undermining No No -Change in Wound Grade/Stage No -Exudate Amt Large Large -Exudate Type Serosanguineous Serosanguineous -Wound Margin Distinct, Flat & Intact Outline Attached -Granulation Amt None Present (0 Medium (34-66%) %) -Granulation Quality N/A [place] -Slough/Fibrin Yes Yes -Necrosis Amt None Present (0 Medium (34-66%) %) -Necrotic Tissue Type Adherent Slough -Structure Exposed N/A N/A -Texture (Betty-wound Skin Appearance) Assessed, Assessed, Excoriation, Excoriation, Rash Localized Edema -Moisture (Betty-wound Skin Appearance) Assessed, Assessed, Weeping Maceration, Weeping -Color (Betty-wound Skin Appearance) Assessed, Assessed,Rubor Erythema -Temperature (Betty-wound Skin No Abnormality No Abnormality Appearance) (Pt Warm) (Pt Warm) -Tenderness on Palpation (Betty-wound Yes No Skin Appearance) -Ulcer Cleansing Soap and Water Soap and Water -Foul Odor after Cleansing No No -Anesthetic Used 5% Lidocaine 4% Lidocaine Gel Solution Lower Limb Edema Present No Yes Right Calf (cm) 42 40.0 Right Ankle (cm) 25.5 25.0 Left Calf (cm) 32.7 Left Ankle (cm) 25 WC - Nurse 2 - General Ulcer CM Notes Start: 05/28/22 13:28 Freq: Status: Active Protocol: Activity Type Activity Date Activity User E-sign Co-sign Detail Recorded Client Recorded Date Recorded By Document 05/28/22 14:06 [id number] 05/28/22 14:15 Document 06/05/22 15:15 [id number] 06/05/22 15:29 05/28/22 06/05/22 14:06 15:15 Wound Center Nurse 2 #1 R medial lower extremity -Time 14:06 15:25 -Correct Patient Yes Yes -Correct Side, Site, Position Yes Yes -Correct Procedure Yes Yes -Procedure Performed Yes Yes -Type of Procedure Debridement Debridement -Clinical Debridement Subcutaneous Subcutaneous -Tissue Removed Subcutaneous Subcutaneous -Post Debridement (cm) - Length 7.0 13 -Post Debridement (cm) - Width 6.5 22 -Post Debridement (cm) - Depth 0.2 0.2 -Total Square (Post) (cm) 45.50 286 -Area of Debridement (cm) - Length 7.0 13 -Area of Debridement (cm) - Width 6.5 22 -Total Square (Area) (cm) 45.50 286 -Tunneling No No -Undermining/Tunneling No No -Circular Undermining No No -Wound/Ulcer Outcome Not Healed Not Healed -Ulcer Cleansing Rinsed/ Rinsed/ Irrigated with Irrigated with Saline Saline -Foul Odor after Cleansing No No -Bioengineered Tissue No No -Bleeding Controlled with Pressure Pressure -Treatment Response Procedure Procedure Tolerated Well Tolerated Well -Offloading No No -Debridement - Subq, 1st 20sq cm Yes Yes -Debridement, SubQ, ea addt'l 20sq cm 2 11 or part thereof Pain Scale: 0-10 Numeric Is Patient Pain Free? Yes No WC - Nurse 3 - General Ulcer D/C NN Start: 05/28/22 13:28 Freq: Status: Active Protocol: Activity Type Activity Date Activity User E-sign Co-sign Detail Recorded Client Recorded Date Recorded By Document 05/28/22 14:43 DL [id number] 05/28/22 14:45 DL 05/28/22 14:43 Wound Care Nurse 3 #1 R medial lower extremity -Ulcer Cleansing Rinsed/ Irrigated with Saline -Foul Odor after Cleansing No -Negative Pressure Wound Therapy N/A -Primary Dressing Applied NonAdherent Contact Layer, Optilok 6.5x10, Silvercel -Optilok 6.5x10 2 -Silvercel 4 Right -Lotion applied to leg before No compression wrap -Tubular Bandage Single Layer -Size of Tubigrip Used Size D -Size D ($) 1 -Stockings No Pain Scale: 0-10 Numeric Is Patient Pain Free? No WC - Visit Discharge Discharge Condition Stable Ambulatory Status Ambulatory,Cane Transportation Private Auto Medication Reconcilliation completed & Yes provided to patient/care provider Clinical Summary of Care Provided Yes Assessment/Plan Assessment/Plan (1) Ulcer of right lower extremity with fat layer exposed: CODE(S): L97.912 - Non-pressure chronic ulcer of unspecified part of right lower leg with fat layer exposed (2) Edema of right lower leg: CODE(S): R60.0 - Localized edema (3) History of stroke: CODE(S): Z86.73 - Personal history of transient ischemic attack (TIA), and cerebral infarction without residual deficits (4) History of bilateral hip replacements: CODE(S): Z96.643 - Presence of artificial hip joint, bilateral (5) Physical debility: CODE(S): R53.81 - Other malaise PLAN: Plan Patient evaluated at the wound center today. Wound care - Dakins 0.25% moistened gauze covered with super absorber daily after washing with soap and water A wound culture was obtained 05/29/22 which was positive for Pseudomonas aeroginosa and Staphylococcus aureus. He is allergic to Cipro so there is no oral coverage for the Levaquin. The biggest concern is the increased in redness and drainage of the ulcer along with his inability to care for himself. His significant other states it is too hard for her to care for him. She has her own health issues and she is not strong enough to care for him 24 hours a day. She states that his house is not fit to live in, it is filthy and she states his wound will get worse if he goes home. She also states she has concerns about him acting like he did last July when he had his stroke. I am sending him to the ED for further evaluation of not only his wound, neuro status and for his social status of living at home. Follow up one week.
== END 2022-06-09 23:59 | disposition home or self-care (01) ==
LOC: WC 14:30
PROVIDERS: PCP Family Medicine Geriatric Medicine; Visit Provider Nurse Practitioner Family
DX: L97.812 Non-pressure chronic ulcer of other part of right lower leg with fat layer exposed (principal); I69.351 Hemiplegia and hemiparesis following cerebral infarction affecting right dominant side; R60.0 Localized edema; E07.9 Disorder of thyroid, unspecified; E78.00 Pure hypercholesterolemia, unspecified; F17.290 Nicotine dependence, other tobacco product, uncomplicated; Z79.01 Long term (current) use of anticoagulants; Z79.890 Hormone replacement therapy; Z79.899 Other long term (current) drug therapy; Z95.5 Presence of coronary angioplasty implant and graft
CPT/HCPCS: 11042; 11045; 87070; 87075; 87077; 87186; 87205; 99214; G0463

== ENCOUNTER 2022-06-05 16:26 | Inpatient (IN) | payer MEDICARE, SELFPAY ==
[2022-06-05 16:28] VITALS: BP 151/86; PULSE 87; RESP 15; TEMP 36.4; O2SAT 97; BMI 25.7
--- NOTE | 2022-06-05 17:27 | ED.RN ---
THIS RN IN PT ROOM. PT'S SIGNIFICANT OTHER STATES PT STATED HE WANTED TO KILL HIMSELF PRIOR TO THIS RN ENTERING ROOM. WHEN ASKING PT, PT DENIES STATING HE WANTED TO KILL HIMSELF. PT DENIES THOUGHTS OF HARMING SELF OR OTHERS WHEN ASKED BY THIS NURSE.
--- NOTE | 2022-06-05 17:49 | EX.ED.DYSGE1 ---
HPI <DEVANG Diggs - Last Filed: 06/05/22 21:51> History of Present Illness Chief Complaint: Wound Narrative Narrative: Patient presents today with his significant other for an ulcerated and seeping wound he has had on his right lower leg for around a month. He was seen today by his wound care provider who sent him here because his significant other claimed that he lives in dirty conditions, does not take care of his wound by himself, and can no longer live alone. His S/O also claimed that he has been more confused recently, and is concerned he is having a stroke because of this. Also, he had a wound culture 05/29 that was positive for Staph aureus and Pseudomonas but he has not been started on any antibiotics. [facility] <DEVAGN Diggs - Last Filed: 06/05/22 21:51> [facility] Medical History (Updated 06/05/22 @ 21:17 by DEVANG Diggs) Chronic acquired lymphedema Chronic back pain Dementia Discoloration of skin Gastric reflux High cholesterol History of CVA (cerebrovascular accident) History of prostate cancer History of venous thromboembolism Kidney stones Tobacco use Wears dentures Wears glasses Home Medications celecoxib 200 mg capsule 200 mg PO DAILY Check with primary doctor 02/23/21 [History Last Taken Unknown] cholecalciferol (vitamin D3) 25 mcg (1,000 unit) tablet (Vitamin D3) 25 mcg PO DAILY Check with primary doctor 02/23/21 [History Last Taken Unknown] levothyroxine 50 mcg tablet (Euthyrox) 50 mcg PO DAILY Check with primary doctor 02/23/21 [History Last Taken Unknown] warfarin 5 mg tablet 4.5 mg PO DAILY Check with primary doctor 02/23/21 [History Last Taken 07/19/21] atorvastatin 40 mg tablet 40 mg PO QHS Check with primary doctor 06/05/22 [History Last Taken Unknown] donepezil 10 mg tablet 10 mg PO QHS Check with primary doctor 06/05/22 [History Last Taken Unknown] Allergy/AdvReac Type Severity Reaction Status Date / Time cephalexin [From Keflex] Allergy Rash Verified 06/05/22 17:23 ciprofloxacin [From Cipro] Allergy Rash Verified 06/05/22 17:23 Gadolinium-MRI Contrast Allergy Rash Verified 06/05/22 17:23 Medium [DYE] prednisone Allergy Rash Verified 06/05/22 17:23 shellfish derived Allergy Rash Verified 06/05/22 17:23 Family History (Updated 06/05/22 @ 21:[address] Colleen Ireland MD) Mother Dementia Father CVA (cerebral vascular accident) Surgical History (Updated 06/05/22 @ 20:[address] Colleen Ireland MD) History of coronary artery stent placement Hx of colonoscopy Hx of cystoscopy Hx of knee surgery Status post total hip replacement, left Social History (Updated 06/05/22 @ 21:[address] Colleen Ireland MD) household members: significant other Smoking Status: Current some day smoker tobacco type: pipe other: 2x/daily. alcohol intake: never substance use type: does not use ROS <DEVANG Diggs - Last Filed: 06/05/22 21:51> ROS ED Constitutional Constitutional ED: Denies chills, fever(s) or sweats Eyes Eyes: Denies blurry vision, change in vision or diplopia ENT ENT ED: Denies rhinorrhea or sore throat Cardiovascular Cardiovascular: Denies chest pain, palpitations or racing heartbeat Respiratory/Chest Respiratory/Chest: Denies cough, dyspnea or dyspnea on exertion Gastrointestinal Gastrointestinal: Denies abdominal pain, diarrhea, nausea or vomiting Genitourinary Genitourinary ED: Denies dysuria, hematuria or urinary frequency Musculoskeletal Musculoskeletal: Denies arthralgias, myalgias or neck pain Integumentary Reports skin ulcer; Denies abscess, Abrasions or rash Neurologic Neurologic: Denies headache(s), paresthesias or weakness Psychiatric Psychiatric: Denies anxiety, depression, suicidal ideation or suicidal thoughts EXAM <DEVANG Diggs - Last Filed: 06/05/22 21:51> Physical Exam Const Vital Signs: 06/05/22 16:28 Temperature 97.5 F L Temperature Source Temporal Pulse Rate 87 Respiratory Rate 15 Blood Pressure 151/86 H Blood Pressure Mean 107 Pulse Ox 97 Oxygen Delivery Method Room Air Positive well nourished and well developed General Appearance ED: well developed and NAD HEENT Reports moist mucous membranes Negative for trauma or tenderness Eyes PERRL and EOMs intact bilaterally Neck no lymphadenopathy and supple Chest Wall inspection of chest normal and palpation of chest normal Resp normal respiratory effort and clear to auscultation bilaterally Cardio regular rate, regular rhythm and no murmurs GI non-tender, non-distended and no masses Palpation: soft Extremity Extremity Narrative: Patient has 2 large erythemic ulcerations on his right lower leg. They are seeping clear fluid. No purulent discharge noted. Neuro oriented x3, CN's II-XII intact bilaterally and no sensory deficits noted Sensorium / Orientation: alert Motor Exam: strength 5/5 throughout Psych mental status grossly normal Skin General Skin Exam: elasticity normal Rashes: No rashes noted <Dr. Odilon Novak DO - Last Filed: 06/05/22 22:15> Physical Exam Const Vital Signs: 06/05/22 16:28 Temperature 97.5 F L Temperature Source Temporal Pulse Rate 87 Respiratory Rate 15 Blood Pressure 151/86 H Blood Pressure Mean 107 Pulse Ox 97 Oxygen Delivery Method Room Air MDM <DEVANG Diggs - Last Filed: 06/05/22 21:51> MDM MDM Narrative Medical decision making narrative: Patient was given Zosyn and vancomycin to cover staph and Pseudomonas. Blood cultures were obtained. When patient's significant other found out that there were no available beds in the hospital she stated, he told me he is going to kill himself. Now are you going to admit him? I asked patient if this was true and if he had any suicidal ideations and he denied this. He stated he is having no suicidal thoughts or intentions to harm or kill himself. Patient will be admitted for IV antibiotics and further wound care. Patient is comfortable with plan. Lab Data Attestation: I reviewed the patient's lab results. Lab results narrative: ESR 79, INR 3.3, anion gap 4, CRP 82.7, no acute cystitis. Labs: Laboratory Results - last 24 hr 06/05/22 06/05/22 06/05/22 18:22 18:22 18:22 WBC 9.6 RBC 4.80 Hgb 13.1 Hct 42.0 MCV 87.5 MCH 27.3 MCHC 31.2 L RDW Std Deviation 46.5 H RDW Coeff of Beverly 14.6 Plt Count 280 MPV 10.1 Immature Gran % (Auto) 0.800 Neut % (Auto) 72.2 H Lymph % (Auto) 15.6 L Reeves % (Auto) 9.6 Eos % (Auto) 1.4 Baso % (Auto) 0.4 Absolute Neuts (auto) 6.9 Absolute Lymphs (auto) 1.49 Nucleated RBC % 0 ESR 79 H PT Cancelled INR Cancelled Sodium 137 Potassium 4.7 Chloride 108 H Carbon Dioxide 25.0 Anion Gap 4 L BUN 15 Creatinine 0.85 Estim Creat Clear Calc 76.08 Est GFR (MDRD) Af Amer 111 Est GFR (MDRD) Non-Af 92 BUN/Creatinine Ratio 17.6 Glucose 106 Calcium 8.7 Phosphorus Magnesium C-React Prot Ext Range 82.70 H Urine Color Urine Clarity Urine pH Ur Specific Effie Urine Protein Urine Glucose (UA) Urine Ketones Urine Occult Blood Urine Nitrite Urine Bilirubin Urine Urobilinogen Ur Leukocyte Esterase Urine RBC Urine WBC Ur Squamous Epith Cells Urine Bacteria Urine Mucus 06/05/22 06/05/22 06/05/22 18:22 18:45 18:53 WBC RBC Hgb Hct MCV MCH MCHC RDW Std Deviation RDW Coeff of Beverly Plt Count MPV Immature Gran % (Auto) Neut % (Auto) Lymph % (Auto) Reeves % (Auto) Eos % (Auto) Baso % (Auto) Absolute Neuts (auto) Absolute Lymphs (auto) Nucleated RBC % ESR PT 33.4 H INR 3.3 Sodium Potassium Chloride Carbon Dioxide Anion Gap BUN Creatinine Estim Creat Clear Calc Est GFR (MDRD) Af Amer Est GFR (MDRD) Non-Af BUN/Creatinine Ratio Glucose Calcium Phosphorus 2.2 L Magnesium 2.2 C-React Prot Ext Range Urine Color Yellow Urine Clarity Clear Urine pH 5.0 Ur Specific Effie 1.025 Urine Protein 15 H Urine Glucose (UA) Normal Urine Ketones 5 H Urine Occult Blood 10 H Urine Nitrite Negative Urine Bilirubin Negative Urine Urobilinogen 1 H Ur Leukocyte Esterase 25 H Urine RBC 0-5 SEEN Urine WBC 0-5 SEEN Ur Squamous Epith Cells 0-5 SEEN Urine Bacteria RARE Urine Mucus 0 SEEN Radiography Diagnostic Testing: Clinical Impression(s) from Imaging Studies Tibia/Fibula X-Ray 06/05/22 18:03 IMPRESSION: Normal x-ray examination of the tibia and fibula. Electronically Signed: Bobby Vuong MD at 18:20 EST , X-ray also reviewed and interpreted by attending ED physician. <Dr. Odilon Novak, DO - Last Filed: 06/05/22 22:15> [facility] Lab Data Labs: Laboratory Results - last 24 hr 06/05/22 06/05/22 06/05/22 18:22 18:22 18:22 WBC 9.6 RBC 4.80 Hgb 13.1 Hct 42.0 MCV 87.5 MCH 27.3 MCHC 31.2 L RDW Std Deviation 46.5 H RDW Coeff of Beverly 14.6 Plt Count 280 MPV 10.1 Immature Gran % (Auto) 0.800 Neut % (Auto) 72.2 H Lymph % (Auto) 15.6 L Reeves % (Auto) 9.6 Eos % (Auto) 1.4 Baso % (Auto) 0.4 Absolute Neuts (auto) 6.9 Absolute Lymphs (auto) 1.49 Nucleated RBC % 0 ESR 79 H PT Cancelled INR Cancelled Sodium 137 Potassium 4.7 Chloride 108 H Carbon Dioxide 25.0 Anion Gap 4 L BUN 15 Creatinine 0.85 Estim Creat Clear Calc 76.08 Est GFR (MDRD) Af Amer 111 Est GFR (MDRD) Non-Af 92 BUN/Creatinine Ratio 17.6 Glucose 106 Calcium 8.7 Phosphorus Magnesium C-React Prot Ext Range 82.70 H Urine Color Urine Clarity Urine pH Ur Specific Effie Urine Protein Urine Glucose (UA) Urine Ketones Urine Occult Blood Urine Nitrite Urine Bilirubin Urine Urobilinogen Ur Leukocyte Esterase Urine RBC Urine WBC Ur Squamous Epith Cells Urine Bacteria Urine Mucus 06/05/22 06/05/22 06/05/22 18:22 18:45 18:53 WBC RBC Hgb Hct MCV MCH MCHC RDW Std Deviation RDW Coeff of Beverly Plt Count MPV Immature Gran % (Auto) Neut % (Auto) Lymph % (Auto) Reeves % (Auto) Eos % (Auto) Baso % (Auto) Absolute Neuts (auto) Absolute Lymphs (auto) Nucleated RBC % ESR PT 33.4 H INR 3.3 Sodium Potassium Chloride Carbon Dioxide Anion Gap BUN Creatinine Estim Creat Clear Calc Est GFR (MDRD) Af Amer Est GFR (MDRD) Non-Af BUN/Creatinine Ratio Glucose Calcium Phosphorus 2.2 L Magnesium 2.2 C-React Prot Ext Range Urine Color Yellow Urine Clarity Clear Urine pH 5.0 Ur Specific Effie 1.025 Urine Protein 15 H Urine Glucose (UA) Normal Urine Ketones 5 H Urine Occult Blood 10 H Urine Nitrite Negative Urine Bilirubin Negative Urine Urobilinogen 1 H Ur Leukocyte Esterase 25 H Urine RBC 0-5 SEEN Urine WBC 0-5 SEEN Ur Squamous Epith Cells 0-5 SEEN Urine Bacteria RARE Urine Mucus 0 SEEN Radiography Diagnostic Testing: Clinical Impression(s) from Imaging Studies Tibia/Fibula X-Ray 06/05/22 18:03 IMPRESSION: Normal x-ray examination of the tibia and fibula. Electronically Signed: Bobby Vuong MD at 18:20 EST , Treatment and Re-Evaluation Narrative: This patient was seen with a PA/GARDE MANAGER Individually assessed they patient including history and physical. I have reviewed everything on the chart that is available and agree with the documentation provided by the PA/GARDE MANAGER including discussion about the assessment, treatment plan, discussion, and return precautions. Patient presenting with a chronic wound which is apparently worsening. I spoke with the nurse practitioner prior to arrival. He was cultured and apparently has Pseudomonas and staph on his wound culture. He is allergic to Cipro and therefore likely Levaquin. He states that his allergy was rash but it happened about a month into his treatment. He does have leg markings on the leg that showed that the erythema from the top of the leg is gone down however his wounds on his lower leg are worsening and seeping. X-ray of this area does not show any subcutaneous air. There is no fracture or subluxation on my interpretation. CBC and BMP are unremarkable. ESR is 79, and CRP is 82.7. Given his cultures he was given vancomycin and Zosyn. Patient and expressed concerns at that he cannot go home because he is generally weak. We did discuss the fact that we would likely be able to keep him here and they stated that he could not send him home. At this point patient and became frustrated and he stated that he was going to kill himself. He does not have a plan or intent. We believe he needs a psych evaluation. Again he was frustrated. He was reassured when we told him that we would be able to keep him. Patient was discussed with hospitalist for admission. Discharge Plan Dx/Rx/DC Orders Clinical Impression: Cellulitis of leg, right, Chronic ulcer of right lower leg Disposition Disposition: Acute Care Hospital [facility] Discharge Date/Time: 06/05/22 21:56
--- NOTE | 2022-06-05 18:03 | RAD_ITS ---
STUDY: X-RAY - RIGHT TIBIA AND FIBULA REASON FOR EXAM: Male, 82 years old. wound TECHNIQUE: 2 view(s) of the tibia and fibula were obtained. COMPARISON: None. FINDINGS: Normal visualized tibia. Normal visualized fibula. The soft tissue structures are unremarkable. RAD/Tibia & Fibula 2 Views IMPRESSION: Normal x-ray examination of the tibia and fibula. Electronically Signed: Bobby Vuong MD at 18:20 EST ,
[2022-06-05 18:35] LABS: Erythrocyte Sedimentation Rate 79 mm/hr (0-20)
[2022-06-05 18:36] LABS: Absolute Lymphocyte Count 1.49 X10^3/uL (0.83-4.51); Absolute Neutrophil Count 6.9 X10^3/uL (2.0-7.7); Basophil# 0.04 X10^3/uL; Basophil% 0.4 % (0-1); Eosinophil# 0.13 X10^3/uL; Eosinophils% 1.4 % (0-5); Hemoglobin 13.1 g/dL (13.0-16.5); Lymphocyte # 1.49 X10^3/ul (0.83-4.51); Lymphocyte % 15.6 % (19-41); Mean Corp Hgb Conc 31.2 g/dL (32-36); Mean Corpuscular Hgb 27.3 pg (27.0-32.0); Mean Corpuscular Volume 87.5 fL (80-94); Mean Platelet Vol. 10.1 fl (6.2-12.0); Monocyte# 0.92 X10^3/uL; Monocyte% 9.6 % (0-10); NRBC Flagged by Analyzer 0 % (0-5); Neutrophil # 6.92 X10^3/uL (2.7-7.7); Neutrophil % 72.2 % (47-70); Platelet Count 280 K/mm3 (150-450); RBC Distribution Width CV 14.6 % (11.6-14.6); RBC Distribution Width SD 46.5 fl (35.1-43.9); White Blood Count 9.6 K/mm3 (4.4-11.0)
[2022-06-05 18:48] LABS: Anion Gap 4 (5-15); BUN 15 mg/dL (7-18); BUN/Creat Ratio 17.6 RATIO (10-20); Calcium,Total 8.7 mg/dL (8.5-10.1); Chloride 108 mmol/L (98-107); Creatinine, Serum 0.85 mg/dL (0.70-1.30); EST Glomerular Filtration Rate 92 mL/min (>60); Est Glom Filt Rate - Afr Amer 111 mL/min (>60); Estimated Creatinine Clearance 76.08 ml/min; Glucose 106 mg/dL (74-106); Potassium 4.7 mmol/L (3.5-5.1); Sodium Level 137 mmol/L (136-145)
[2022-06-05 18:49] LABS: Mucous, Urine 0 SEEN /hpf (<or=2+)
[2022-06-05 18:55] LABS: Color, Urine Yellow (Yellow); Glucose, Dipstick Normal (Normal); Ketone-Dipstick 5 mg/dl (Negative); Leukocyte Esterase-Dipstick 25 /ul (Negative); Nitrite-Dipstick Negative (Negative); Occult Blood-Urine 10 /ul (Negative); Protein-Dipstick 15 mg/dl (Negative); Specific Gravity, Urine 1.025 (1.002-1.030); Urine Bilirubin Dipstick Negative (Negative); Urine Clarity Clear (Clear); Urine Urobilinogen 1 mg/dl (Normal)
[2022-06-05 19:21] LABS: Bacteria RARE /hpf (None Seen); Red Blood Cells-Urine 0-5 SEEN /hpf (0-5); Squamous Epithelial Cells - UA 0-5 SEEN /hpf (0-5); White Blood Cells 0-5 SEEN /hpf (0-5)
[2022-06-05 19:46] LABS: International Normalized Ratio 3.3; Prothrombin Time (Protime)PT. 33.4 SECONDS (11.7-14.9)
--- NOTE | 2022-06-05 20:27 | HP.PCM.HOS_ITS ---
HPI - General General Date of Admission: 06/05/22 Date of Service: 06/05/22 Chief Complaint: RLE worsened ulcerated wound, drainage, edema. 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, HLD, GERD, Tobacco use, Hx CVA w/ R sided weakness/decreased sensation, CAD s/p PCI, Hypothyroidism who presents to the [facility] ED on 06/05/22 with history of [facility] for [facility]LE medial leg ulcer complicated by chronic LE edema with recent evaluation on day of ED presentation with history of initial onset of wound approximately 4 weeks prior with treatment per PCP outpatient at the end of April into May with cefdenir and doxycycline with ongoing significant swelling of the leg and increased drainage from the wound reportedly soaking everything and unfortunately unable to wear compression because it is too uncomfortable and unfortunately of presentation the ulcer seems much larger and was nearly circumferential around the leg with increased edema and pain prompting ED. Patient reports pain as constant dull aching throb however with any attempted manipulation of the leg or palpation of the wound it is also sharp severe 10 out of 10. Work-up in the ED included T97.5, heart 87, BP 151/86, respiratory rate 15, 97% on room air, CBC with WC 9.6, hemoglobin 13.1, platelet 280 without marked shift, ESR 79, CRP 82.70, coags with PT 33.4, INR 3.3, BMP with chloride 108 otherwise not marked appearing, urinalysis with elevated specific remedy 1.025, protein 15, ketone 5, occult blood 10, negative nitrite, leukocyte Estrace 25, no evidence of any urinary tract infection, right plain film of the tibia and fibula with no acute findings, blood culture x2 pending per ED. In the ED patient administered IV vancomycin and Zosyn. [facility] Medical History (Updated 06/05/22 @ 21:17 by DEVANG Diggs) Chronic acquired lymphedema Chronic back pain Dementia Discoloration of skin Gastric reflux High cholesterol History of CVA (cerebrovascular accident) History of prostate cancer History of venous thromboembolism Kidney stones Tobacco use Wears dentures Wears glasses Home Medications celecoxib 200 mg capsule 200 mg PO DAILY Check with primary doctor 02/23/21 [History Last Taken 06/05/22] cholecalciferol (vitamin D3) 25 mcg (1,000 unit) tablet (Vitamin D3) 25 mcg PO DAILY supplement 02/23/21 [History Last Taken 06/05/22] levothyroxine 50 mcg tablet (Euthyrox) 50 mcg PO DAILY thyroid 02/23/21 [History Last Taken 06/05/22] warfarin 5 mg tablet 4.5 mg PO DAILY blood clots 02/23/21 [History Last Taken 06/04/22] atorvastatin 40 mg tablet 40 mg PO QHS cholesterol 06/05/22 [History Last Taken 06/04/22] donepezil 10 mg tablet 10 mg PO QHS memory 06/05/22 [History Last Taken 06/04/22] Allergy/AdvReac Type Severity Reaction Status Date / Time cephalexin [From Keflex] Allergy Rash Verified 06/05/22 17:23 ciprofloxacin [From Cipro] Allergy Rash Verified 06/05/22 17:23 Gadolinium-MRI Contrast Allergy Rash Verified 06/05/22 17:23 Medium [DYE] prednisone Allergy Rash Verified 06/05/22 17:23 shellfish derived Allergy Rash Verified 06/05/22 17:23 Family History (Updated 06/05/22 @ 21:[address] Colleen Ireland MD) Mother Dementia Father CVA (cerebral vascular accident) Surgical History (Updated 06/05/22 @ 20:[address] Colleen Ireland MD) History of coronary artery stent placement Hx of colonoscopy Hx of cystoscopy Hx of knee surgery Status post total hip replacement, left Social History (Updated 06/05/22 @ 21:[address] Colleen Ireland MD) household members: significant other Smoking Status: Current some day smoker tobacco type: pipe other: 2x/daily. alcohol intake: never substance use type: does not use ROS ROS Narrative Admission Review of Systems: CONSTITUTIONAL: No weight loss, fever, chills, + weakness or fatigue. HEENT: Eyes: No visual loss, blurred vision, double vision or yellow sclerae. Ears, Nose, Throat: No hearing loss, sneezing, congestion, runny nose or sore throat. SKIN: + Significant right lower extremity worsened ulcerated wound with significant drainage, edema, erythema. CARDIOVASCULAR: No chest pain, chest pressure or chest discomfort, palpitations, edema, orthopnea, syncopal events. RESPIRATORY: No shortness of breath, cough or sputum, wheezing, hemoptysis. GASTROINTESTINAL: No anorexia, nausea, vomiting or diarrhea, abdominal pain, melena, BRBPR. GENITOURINARY: No dysuria, frequency, urgency or retention. NEUROLOGICAL: + Chronic right-sided weakness/paresthesias status post CVA, no headache, dizziness, syncope, paralysis, ataxia, change in bowel or bladder co ntrol, seizure. MUSCULOSKELETAL: + muscle, back pain, joint pain or stiffness. HEMATOLOGIC: + bleeding or bruising. LYMPHATICS: No enlarged nodes. No history of splenectomy. PSYCHIATRIC: No history of depression or anxiety. ENDOCRINOLOGIC: No reports of sweating, cold or heat intolerance. No polyuria or polydipsia. ALLERGIES: No history of asthma, hives, eczema or rhinitis. Vital Signs Vital Signs Vital Signs: 06/05/22 16:28 Temperature 97.5 F L Temperature Source Temporal Pulse Rate 87 Respiratory Rate 15 Blood Pressure 151/86 H Blood Pressure Mean 107 Pulse Ox 97 Oxygen Delivery Method Room Air Weight Weight: 190 lb Body Mass Index (BMI) 25.7 Physical Exam Narrative Physical Examination: General: Awake, alert, oriented x 3 and cooperative, seated upright in the ED bed, fatigued, uncomfortable with any movement of the right lower extremity and from taking down dressing Skin: Normal color, normal turgor, no icterus, no cyanosis except significant right lower leg with near circumferential ulcerated wound, erythema, serous significant profuse drainage, ankle to proximal knee significant edema also related. HEENT: AT/NC, EOMI, PERRLA, mildly dry MM, no carotid bruits or JVD noted. Lungs: Mild diminished, greater bases, appropriate effort, no rales, ronchi or wheezing. Heart: Currently regular rate and rhythm; no gallop, rub audible. Abdomen: Soft, NTTP, ND, distant normal BS, no HSM. Extremities: No cyanosis, no clubbing, see skin. Neurological: Patient awake, alert, oriented as noted, cognitive function intact; pupils equally reactive to light and accommodation, cranial nerves II- XII grossly normal, moving all 4 extremities except extremely limited right lower extremity movement secondary to pain elicited, strength accordingly moderately to severely globally decreased. Psychiatric: Affect appears uncomfortable especially with right lower extremity evaluation and takedown of dressing, no acute evidence of depressive or anxiety feelings. Results Lab / Micro Data Result Diagrams: 06/05/22 18:22 06/05/22 18:22 Labs: Laboratory Results - last 24 hr 06/05/22 18:22: WBC 9.6, RBC 4.80, Hgb 13.1, Hct 42.0, MCV 87.5, MCH 27.3, MCHC 31.2 L, RDW Std Deviation 46.5 H, RDW Coeff of [place] 14.6, Plt Count 280, MPV 10.1, Immature Gran % (Auto) 0.800, Neut % (Auto) 72.2 H, Lymph % (Auto) 15.6 L, [place] % (Auto) 9.6, Eos % (Auto) 1.4, Baso % (Auto) 0.4, Absolute Neuts (auto) 6.9, Absolute Lymphs (auto) 1.49, Nucleated RBC % 0, ESR 79 H 06/05/22 18:22: Sodium 137, Potassium 4.7, Chloride 108 H, Carbon Dioxide 25.0, Anion Gap 4 L, BUN 15, Creatinine 0.85, Estim Creat Clear Calc 76.08, Est GFR (MDRD) Af Amer 111, Est GFR (MDRD) Non-Af 92, BUN/Creatinine Ratio 17.6, Glucose 106, Calcium 8.7, C-React Prot Ext Range 82.70 H 06/05/22 18:22: PT Cancelled, INR Cancelled 06/05/22 18:45: Urine Color Yellow, Urine Clarity Clear, Urine pH 5.0, Ur Specific [place] 1.025, Urine Protein 15 H, Urine Glucose (UA) Normal, Urine Ketones 5 H, Urine Occult Blood 10 H, Urine Nitrite Negative, Urine Bilirubin Negative, Urine Urobilinogen 1 H, Ur Leukocyte Esterase 25 H, Urine RBC 0-5 SEEN, Urine WBC 0-5 SEEN, Ur Squamous Epith Cells 0-5 SEEN, Urine Bacteria RARE, Urine Mucus 0 SEEN 06/05/22 18:53: PT 33.4 H, INR 3.3 Radiology Impression Tibia/Fibula X-Ray 06/05/22 18:03 IMPRESSION: Normal x-ray examination of the tibia and fibula. 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, HLD, GERD, Tobacco use, Hx CVA w/ R sided weakness/decreased sensation, CAD s/p PCI, Hypothyroidism who presents to the [facility] ED on 06/05/22 with history of [facility] for RLE medial leg ulcer complicated by chronic LE edema with recent evaluation on day of ED presentation with history of initial onset of wound approximately 4 weeks prior with treatment per PCP outpatient at the end of April into May with cefdenir and doxycycline with ongoing significant swelling of the leg and increased drainage from the wound reportedly soaking everything and unfortunately unable to wear compression because it is too uncomfortable and unfortunately of presentation the ulcer seems much larger and was nearly circumferential around the leg with increased edema and pain prompting ED. #1. RLE Extremity Cellulitis with significant medial leg infected ulcer: Will admit to [facility], maintain on IV vanc and zosyn pending cultures w/ requested Wound Cx, Wound MRSA PCR, plan repeat CBC in AM, continue affected extremity elevation above heart when seated and in bed, monitor erythema outline with VS checks. Will consult PT/OT/case management for discharge planning as well as wound care therapy. Will dose with IV Lasix pulse fashion with attempts for bilateral lower extremity Jose Maria wraps and elevation to assist with wound care healing with close renal function monitoring. Most recent cultures taken from the wound noted to be on 05/29/2022 with Pseudomonas and staphylococcal growth at that time although there was another culture obtained 05/07/2022 which demonstrated staphylococcal and Klebsiella growth at that time. Most recent culture sensitive to nearly every agent. Awaiting repeat cultures as noted to assure no additional growth in the interim. De-escalate antibiotic therapy as able. If not improving may need to consult Dr. Reese with plastic surgery. #2. Dementia, unclear type with unclear behavioral disturbance history: We will continue patient home donepezil home regimen, maintain on fall precautions, therapies consulted #3. CAD: Status post prior PCI, will continue aspirin, Coumadin with INR trending, statin therapy and adding low-dose Coreg given elevated blood pressures with review of records concern for hypertension. #4. History of prior CVA: Patient with ongoing right-sided weakness and paresthesias, we will continue aspirin, Coumadin with INR trending, statin therapy, adding low-dose Coreg as noted with readjustment pending response. #5. Hypertension: Currently not on medication, was transiently dosed with Lasix per review of outside medical record likely from edema with lower extremity per PCP, given underlying CHF history we will add low-dose Coreg and further adjust as needed, PRN hydralazine. #6. Hyperlipidemia: We will continue patient on statin therapy. #7. History of VTE: Patient with history of DVT, PE, continue Coumadin with INR trending. #8. GERD: Per current list not on regimen, as needed Mylanta. #9. Tobacco Abuse: Encouraged cessation, inpatient consultation per RT, NR if desired. #10. Hypothyroidism: We will continue patient home levothyroxine regimen. #11. DVT prophylaxis: SCDs, continue Coumadin with INR trending with adjustments as needed. #12. CODE status: Patient does not have healthcare power of employee benefits attorney nor living will in place. His significant other however would be his decision-maker if he was unable to make medical decisions for himself. Discussed CODE status at length including difference between FULL code, DNR-CCA and DNR-CC status. Following discussions about the differences in these status, requested Full Code status. Advanced Care Planning Face to Face Time: 16 minutes. Charges/Coding Visit Charges Inpatient E&M: 48458 Init Hosp L3 Procedures Hospitalists Procedures: 45121 Advncd Care Plan 30 Min
[2022-06-05 20:43] VITALS: BP 141/105; PULSE 84; RESP 18; TEMP 36.8; O2SAT 96
[2022-06-05 21:08] LABS: Magnesium 2.2 mg/dL (1.6-2.6); Phosphorus 2.2 mg/dL (2.5-4.9)
[2022-06-05 21:21] VITALS: O2SAT 98
--- NOTE | 2022-06-05 22:13 | PCM.RX.CS ---
Consult Pharmacy has been consulted to manage selected antiobiotic: Vancomycin Type of Consult: New start Suspected Infection: Skin/Soft tissue Prior Doses of Antibiotics Received/Current Regimen: Medications Vancomycin HCl 1,250 mg/ (Sodium Chloride) 275 mls @ 167 mls/hr IV Q12H SAMI Discontinued Medications Vancomycin HCl 1,250 mg/ (Sodium Chloride) 275 mls @ 167 mls/hr IV X1 ONE Stop: 06/05/22 19:35 Last Admin: 06/05/22 19:45 Dose: 167 mls/hr Labs: Sodium 137 mmol/L (136-145) 06/05/22 18:22 Potassium 4.7 mmol/L (3.5-5.1) 06/05/22 18:22 Chloride 108 mmol/L (98-107) H 06/05/22 18:22 Carbon Dioxide 25.0 mmol/L (21.0-32.0) 06/05/22 18:22 Anion Gap 4 (5-15) L 06/05/22 18:22 BUN 15 mg/dL (7-18) 06/05/22 18:22 Creatinine 0.85 mg/dL (0.70-1.30) 06/05/22 18:22 Est GFR (MDRD) Af Amer 111 mL/min (>60) 06/05/22 18:22 Est GFR (MDRD) Non-Af 92 mL/min (>60) 06/05/22 18:22 BUN/Creatinine Ratio 17.6 RATIO (10-20) 06/05/22 18:22 Glucose 106 mg/dL (74-106) 06/05/22 18:22 Weight used for dosin kg Estimated Creatinine Clearance: 76 Goal Trough: 15-20 mcg/mL Pharmacy Plan for Drug Dosing: Pharmacy Service will continue to monitor and adjust dosing as required. Follow-Up Labs: Trough Vancomycin Labs to be done on [date and time ordered]: 06/07/22 @0700
[2022-06-05 22:14] VITALS: BMI 24.9
[2022-06-05 22:17] VITALS: BP 145/70; PULSE 79; RESP 18; TEMP 36.5; O2SAT 100
[2022-06-05] MEDS: 0.9% Normal Saline 1,000 ML 100 ML IV (22:57)
[2022-06-05] MEDS: Carvedilol 6.25 MG Tablet PO (22:58)
[2022-06-05] MEDS: Furosemide 40 MG/4 ML Vial IV (22:58)
[2022-06-06 00:07] LABS: M R Staph aureus DNA By PCR Negative (Negative); Probe Check PASS; Specimen Processing Control PASS; Staph aureus DNA By PCR NEGATIVE (Negative)
[2022-06-06 04:50] LABS: Absolute Lymphocyte Count 1.25 X10^3/uL (0.83-4.51); Absolute Neutrophil Count 6.8 X10^3/uL (2.0-7.7); Basophil# 0.03 X10^3/uL; Basophil% 0.3 % (0-1); Eosinophil# 0.23 X10^3/uL; Eosinophils% 2.4 % (0-5); Hematocrit 40.1 % (40-54); Lymphocyte # 1.25 X10^3/ul (0.83-4.51); Mean Corp Hgb Conc 32.4 g/dL (32-36); Mean Corpuscular Hgb 27.8 pg (27.0-32.0); Mean Corpuscular Volume 85.9 fL (80-94); Mean Platelet Vol. 10.1 fl (6.2-12.0); Monocyte# 1.21 X10^3/uL; Monocyte% 12.6 % (0-10); NRBC Flagged by Analyzer 0 % (0-5); Neutrophil # 6.83 X10^3/uL (2.7-7.7); Neutrophil % 71.2 % (47-70); Platelet Count 287 K/mm3 (150-450); RBC Distribution Width CV 14.6 % (11.6-14.6); RBC Distribution Width SD 45.8 fl (35.1-43.9); Red Blood Count 4.67 M/mm3 (4.6-6.2); White Blood Count 9.6 K/mm3 (4.4-11.0)
[2022-06-06] MEDS: Levothyroxine 50 MCG Tablet PO (05:09)
[2022-06-06 05:16] LABS: ALB/GLOB Ratio 0.6 RATIO (0.9-2.4); AST(SGOT) 24 U/L (15-37); Alanine Aminotransfer ALT/SGPT 25 U/L (16-61); Albumin, Serum 2.3 g/dL (3.2-5.0); Alkaline Phosphatase 81 U/L (45-117); Anion Gap 4 (5-15); BUN 15 mg/dL (7-18); BUN/Creat Ratio 18.6 RATIO (10-20); Calcium,Total 8.4 mg/dL (8.5-10.1); Chloride 106 mmol/L (98-107); Creatinine, Serum 0.81 mg/dL (0.70-1.30); EST Glomerular Filtration Rate 98 mL/min (>60); Est Glom Filt Rate - Afr Amer 118 mL/min (>60); Globulin 4.1 g/dL (2.2-4.2); Glucose 107 mg/dL (74-106); Potassium 4.1 mmol/L (3.5-5.1); Protein, Total 6.4 g/dL (6.4-8.2); Sodium Level 138 mmol/L (136-145)
[2022-06-06] MEDS: oxyCODONE 5 MG Tablet PO (05:17)
[2022-06-06 05:21] LABS: International Normalized Ratio 3.3; Prothrombin Time (Protime)PT. 32.8 SECONDS (11.7-14.9)
[2022-06-06 05:40] VITALS: BP 116/63; PULSE 78; RESP 16; TEMP 37.2; O2SAT 98
[2022-06-06] MEDS: 0.9% Saline Lock 10 ML Syringe IV (06:54)
[2022-06-06 08:32] VITALS: BP 107/61; PULSE 70; RESP 16; TEMP 36.9; O2SAT 95
[2022-06-06] MEDS: Aspirin 81 MG TAB.CHEW PO (09:01)
[2022-06-06] MEDS: Celecoxib 200 MG Capsule PO (09:01)
[2022-06-06] MEDS: Cholecalciferol (VIT D3) 25 MCG TABLET (1,000 UNITS) PO (09:01)
[2022-06-06] MEDS: Carvedilol 6.25 MG Tablet PO ×2 (09:01→17:45)
[2022-06-06] MEDS: Furosemide 40 MG/4 ML Vial IV (09:02)
--- NOTE | 2022-06-06 09:38 | WOUNDNOTE ---
wound photo: right lower leg
--- NOTE | 2022-06-06 09:38 | WOUNDNOTE ---
wound photo: right lower leg
--- NOTE | 2022-06-06 11:03 | CASEMGMT ---
Social Work? SW in to meet with pt following update from Dr. Villar that pt will need placement at nursing facility. SW introduced self and role at the hospital. Pt agreeable to discussing discharge planning. A list of SNF providers including quality and resource use data and consistent with the patient?s preferred geographic region, medical needs, and insurance network were provided from the [facility] Guide. Pt reviewed list and shared [facility] preference would be [facility], second would be [facility]. SW explained PT/OT would be in to complete assessment and then a referral can be sent to first choice. Pt voiced understanding. ? PLAN: [facility], pending acceptance and precert SNEHAL Solano?
--- NOTE | 2022-06-06 11:09 | CASEMGMT ---
Discharge Driver Salesman This freelance copywriter talked to Winston at [facility]. Referral has been sent via [facility]. Bennett WASHBURN Mixer Blender
[2022-06-06 11:15] VITALS: O2SAT 96
--- NOTE | 2022-06-06 13:43 | CASEMGMT ---
Discharge Hemstitcher [facility] will not look at referral until therapy notes are present. This contract writer sent OT notes but PT still not present. Bennett WASHBURN Cigarette Carton Sealer
[2022-06-06 13:50] VITALS: BP 95/55; PULSE 63; RESP 16; TEMP 36.6; O2SAT 94
--- NOTE | 2022-06-06 14:40 | CASEMGMT ---
GT REYNOLDS Assessment: Face to Face with pt for initial transition planning/care coordination assessment. GT REYNOLDS introduced self and role at [facility], pt voices understanding and consents to assessment. Pt sitting in chair, getting ready to eat lunch. Appears to be in no distress. Pt is A/O and answers all questions appropriately at this time. Care providers, pharmacy, and demographics verified/updated. Admitting Dx: RLE Infected Ulcerated Wound. PCP: Sandip Walker. Specialists: None reported. [facility]. Insurance: [employer]. Prescription Benefit: Yes. LW/HPOA: Pt denies having a LW/DPOA and denies need for info regarding AD. LNOK: Ashley Lam, Friend; Tawnya Landry, Sister. Living Arrangements: Pt lives alone in a two story home with two stairs to enter. A railing is in place. Pt reports being I in ADLs. Transportation: Pt drives self and denies concerns with transportation. Pt's friend, Ashley, is able to assist as well. DME/HHC/SNF: Pt reports having the following: cane, walker, wheelchair, shower chair, and grab bars. Pt states he does not use the walker and wheelchair at this time. Pt denies any current or past HHC or SNF stays. Pt states no concerns with going home at time of dc. Pt states no further concerns/needs. CM to follow. Advised pt to ask CM if any further question/concerns/needs arise, voices understanding. Pt Goal: Home. Pt states he's been caring for himself for the past five or six months. Pt does not feel HHC or SNF is needed but is not opposed if recommended. Plan: TBD. ? ? ?
[2022-06-06] MEDS: Jantoven 2 MG Tablet PO (17:45)
[2022-06-06] MEDS: Juven (unflavored) Packet 1 PACKET PO (17:45)
--- NOTE | 2022-06-06 18:01 | PCM.PN.HOSP ---
Objective Data Objective Data Vital Signs: Vital Signs Temp Pulse Resp BP Pulse Ox O2 Del Method 97.9 F 63 16 95/55 L 94 Room Air 06/06/22 13:50 06/06/22 13:50 06/06/22 13:50 06/06/22 13:50 06/06/22 13:50 06/06/22 13:50 Oxygen Delivery Method Room Air Weight: 78.6 kg Body Mass Index (BMI) 24.9 Intake & Output: Intake and Output for Last 24 Hours 06/04/22 06/05/22 06/06/22 23:59 23:59 23:59 Intake Total 325 / 325 1875 / 1875 Output Total 2100 / 2100 Balance 325 / 325 -225 / -225 Lab / Micro Data Result Diagrams: 06/06/22 04:11 06/06/22 04:11 Labs: Laboratory Results - last 24 hr 06/05/22 18:22: WBC 9.6, RBC 4.80, Hgb 13.1, Hct 42.0, MCV 87.5, MCH 27.3, MCHC 31.2 L, RDW Std Deviation 46.5 H, RDW Coeff of [place] 14.6, Plt Count 280, MPV 10.1, Immature Gran % (Auto) 0.800, Neut % (Auto) 72.2 H, Lymph % (Auto) 15.6 L, [place] % (Auto) 9.6, Eos % (Auto) 1.4, Baso % (Auto) 0.4, Absolute Neuts (auto) 6.9, Absolute Lymphs (auto) 1.49, Nucleated RBC % 0, ESR 79 H 06/05/22 18:22: Sodium 137, Potassium 4.7, Chloride 108 H, Carbon Dioxide 25.0, Anion Gap 4 L, BUN 15, Creatinine 0.85, Estim Creat Clear Calc 76.08, Est GFR (MDRD) Af Amer 111, Est GFR (MDRD) Non-Af 92, BUN/Creatinine Ratio 17.6, Glucose 106, Calcium 8.7, C-React Prot Ext Range 82.70 H 06/05/22 18:22: PT Cancelled, INR Cancelled 06/05/22 18:22: Phosphorus 2.2 L, Magnesium 2.2 06/05/22 18:45: Urine Color Yellow, Urine Clarity Clear, Urine pH 5.0, Ur Specific [place] 1.025, Urine Protein 15 H, Urine Glucose (UA) Normal, Urine Ketones 5 H, Urine Occult Blood 10 H, Urine Nitrite Negative, Urine Bilirubin Negative, Urine Urobilinogen 1 H, Ur Leukocyte Esterase 25 H, Urine RBC 0-5 SEEN, Urine WBC 0-5 SEEN, Ur Squamous Epith Cells 0-5 SEEN, Urine Bacteria RARE, Urine Mucus 0 SEEN 06/05/22 18:53: PT 33.4 H, INR 3.3 06/05/22 22:30: S.aureus Protein A PCR NEGATIVE, MRSA (PCR) Negative 06/06/22 04:11: WBC 9.6, RBC 4.67, Hgb 13.0, Hct 40.1, MCV 85.9, MCH 27.8, MCHC 32.4, RDW Std Deviation 45.8 H, RDW Coeff of [place] 14.6, Plt Count 287, MPV 10.1, Immature Gran % (Auto) 0.500, Neut % (Auto) 71.2 H, Lymph % (Auto) 13.0 L, [place] % (Auto) 12.6 H, Eos % (Auto) 2.4, Baso % (Auto) 0.3, Absolute Neuts (auto) 6.8, Absolute Lymphs (auto) 1.25, Nucleated RBC % 0 06/06/22 04:11: PT 32.8 H, INR 3.3 06/06/22 04:11: Sodium 138, Potassium 4.1, Chloride 106, Carbon Dioxide 28.0, Anion Gap 4 L, BUN 15, Creatinine 0.81, Estim Creat Clear Calc 75.10, Est GFR (MDRD) Af Amer 118, Est GFR (MDRD) Non-Af 98, BUN/Creatinine Ratio 18.6, Glucose 107 H, Calcium 8.4 L, Total Bilirubin 0.50, AST 24, ALT 25, Alkaline Phosphatase 81, Total Protein 6.4, Albumin 2.3 L, Globulin 4.1, Albumin/Globulin Ratio 0.6 L Radiography Diagnostic Testing: Radiology Impression Tibia/Fibula X-Ray 06/05/22 18:03 IMPRESSION: Normal x-ray examination of the tibia and fibula. Electronically Signed: Bobby Vuong MD at 18:20 EST , Assessment & Plan Assessment/Plan (1) Chronic ulcer of right lower leg: (2) Cellulitis of leg, right: (3) Physical debility: (4) Edema of right lower leg: PLAN: Plan Right lower extremity wound -Outpatient cultures done on 05/29/2022 that showed MSSA and Pseudomonas -Antibiotics were not started as of yet -Repeat culture has already been obtained by wound care -Blood cultures pending -Wound care is following -Continue diuresis to decrease volume to help with healing -Continue vancomycin and Zosyn -Dissipate transition to orals at discharge -Micheal to help with wound healing -Patient will need placement to help with wound and for debility--> patient is agreeable CAD/history of stroke/HPL/HTN -Patient is not currently on any aspirin or blood pressure medication at home -Aspirin and Coreg initiated -Onto her blood pressure with this -Continue home atorvastatin -Previous PCI -No current acute issues -Continued ordered Lasix Debility -PT/OT consultation -Home is evidently in disrepair and patient will need placed Dementia -Type unclear however suspect vascular with history -Continue home Aricept -PT/OT consulted GERD -Patient currently not anything -Was previously on famotidine Hypothyroidism -Continue levothyroxine Vitamin D deficiency -Continue home cholecalciferol Urinary incontinence -Continue oxybutynin History of DVT/PE -Patient is on chronic Coumadin -INR 3.3 on admission and stable today -Continue current dose and monitor closely with antibiotic usage History of prostate cancer -No current issues Tobacco abuse -Recommend cessation -Nicotine replacement if desired -We will most certainly complicate wound healing DVT prophylaxis -Patient is fully anticoagulated with Coumadin CODE STATUS -Full code Charges/Coding Visit Charges Inpatient E&M: 20404 Subs Hosp L2
[2022-06-06 20:17] VITALS: BP 98/60; PULSE 77; RESP 16; TEMP 36.3; O2SAT 94
[2022-06-06 20:57] VITALS: BP 98/60; PULSE 77; RESP 16; TEMP 36.3; O2SAT 94
[2022-06-06] MEDS: Atorvastatin Calcium 40 MG Tablet PO (22:20)
[2022-06-06] MEDS: Donepezil HCl 10 MG Tablet PO (22:20)
[2022-06-07] VITALS (8 sets, daily range): BP systolic 97–121; BP diastolic 62–80; PULSE 66–88; RESP 16–18; TEMP 36.7–37.3; O2SAT 94–97
[2022-06-07] MEDS: Levothyroxine 50 MCG Tablet PO (05:54)
[2022-06-07] MEDS: Juven (unflavored) Packet 1 PACKET PO ×2 (07:24→17:48)
[2022-06-07] MEDS: Aspirin 81 MG TAB.CHEW PO (07:24)
[2022-06-07 07:55] LABS: Absolute Lymphocyte Count 1.99 X10^3/uL (0.83-4.51); Absolute Neutrophil Count 6.3 X10^3/uL (2.0-7.7); Basophil# 0.04 X10^3/uL; Basophil% 0.4 % (0-1); Eosinophil# 0.25 X10^3/uL; Eosinophils% 2.5 % (0-5); Hematocrit 36.8 % (40-54); Lymphocyte # 1.99 X10^3/ul (0.83-4.51); Lymphocyte % 19.9 % (19-41); Mean Corp Hgb Conc 32.6 g/dL (32-36); Mean Corpuscular Hgb 28.6 pg (27.0-32.0); Mean Corpuscular Volume 87.6 fL (80-94); Mean Platelet Vol. 9.7 fl (6.2-12.0); Monocyte# 1.33 X10^3/uL; Monocyte% 13.3 % (0-10); NRBC Flagged by Analyzer 0 % (0-5); Neutrophil # 6.32 X10^3/uL (2.7-7.7); Neutrophil % 63.3 % (47-70); Platelet Count 269 K/mm3 (150-450); RBC Distribution Width CV 14.6 % (11.6-14.6); RBC Distribution Width SD 46.7 fl (35.1-43.9)
[2022-06-07 08:09] LABS: Anion Gap 3 (5-15); BUN 25 mg/dL (7-18); BUN/Creat Ratio 26.4 RATIO (10-20); Calcium,Total 8.5 mg/dL (8.5-10.1); Chloride 108 mmol/L (98-107); Creatinine, Serum 0.95 mg/dL (0.70-1.30); EST Glomerular Filtration Rate 81 mL/min (>60); Est Glom Filt Rate - Afr Amer 99 mL/min (>60); Estimated Creatinine Clearance 64.04 ml/min; Glucose 101 mg/dL (74-106); Potassium 4.4 mmol/L (3.5-5.1); Sodium Level 139 mmol/L (136-145)
--- NOTE | 2022-06-07 08:10 | CASEMGMT ---
Discharge Wood Type Finisher This credit underwriter sent PT notes to [facility]. Bennett WASHBURN Cloth Finishing Range Tender
[2022-06-07 08:13] LABS: Vancomycin, Trough Level 16.8 ug/mL (5.0-15.0)
--- NOTE | 2022-06-07 08:29 | PCM.RX.CS ---
Consult Pharmacy has been consulted to manage selected antiobiotic: Vancomycin Type of Consult: Follow-up Suspected Infection: Skin/Soft tissue Prior Doses of Antibiotics Received/Current Regimen: 1250mg iv q12h. Labs: Sodium 139 mmol/L (136-145) 06/07/22 07:00 Potassium 4.4 mmol/L (3.5-5.1) 06/07/22 07:00 Chloride 108 mmol/L (98-107) H 06/07/22 07:00 Carbon Dioxide 28.0 mmol/L (21.0-32.0) 06/07/22 07:00 Anion Gap 3 (5-15) L 06/07/22 07:00 BUN 25 mg/dL (7-18) H 06/07/22 07:00 Creatinine 0.95 mg/dL (0.70-1.30) 06/07/22 07:00 Est GFR (MDRD) Af Amer 99 mL/min (>60) 06/07/22 07:00 Est GFR (MDRD) Non-Af 81 mL/min (>60) 06/07/22 07:00 BUN/Creatinine Ratio 26.4 RATIO (10-20) H 06/07/22 07:00 Glucose 101 mg/dL (74-106) 06/07/22 07:00 Vancomycin Trough 16.8 ug/mL (5.0-15.0) H 06/07/22 07:00 Microbiology: Microbiology 06/05/22 09:00 Wound - Leg, Right Gram Stain - Final Weight used for dosin kg Estimated Creatinine Clearance: 64 ml/min Goal Trough: 15-20 mcg/mL Pharmacy Plan for Drug Dosing: Trough today was 16.8 and in desired therapeutic range of 15-20mcg/ml. Will continue same dose and get repeat trough level before another 4th dose on 06.08.22. Pharmacy Service will continue to monitor and adjust dosing as required. Follow-Up Labs: Trough Vancomycin - 06.08.22 @1900 before 1930 dose
[2022-06-07 08:42] LABS: International Normalized Ratio 2.7; Prothrombin Time (Protime)PT. 28.2 SECONDS (11.7-14.9)
[2022-06-07] MEDS: Celecoxib 200 MG Capsule PO (10:06)
[2022-06-07] MEDS: Cholecalciferol (VIT D3) 25 MCG TABLET (1,000 UNITS) PO (10:06)
--- NOTE | 2022-06-07 10:25 | CASEMGMT ---
Discharge Supervisor Vacuum Metalizing [facility] accepted patient. JOSSIE Mejias notified. Bennett WASHBURN Bulk Fluids Handler
--- NOTE | 2022-06-07 11:02 | CASEMGMT ---
Addendum entered by Magalie Pimentel 06/07/22 14:03: Return call from pt insurance and preauth has been given. Pt approved through 06/10/22. If pt does not discharge by this time a new precert will be needed. Reference #[id number]. [facility] updated through [facility]. Plan: [facility], when medically ready SNEHAL Nuñez Original Note: Social Work [facility] is able to accept pt. SW started precert with insurance and will await determination of authorization. SW met with pt and informed. Pt expresses understanding and agreement with d/c plan. Per physician, pt is not medically ready for discharge today. Plan: [facility], pending precert SNEHAL Nuñez
--- NOTE | 2022-06-07 16:06 | PN.HOSP_ITS ---
Subjective Subjective No issues overnight. Patient has no complaints. Feeling fine. Pain in leg is improved. Objective Data Objective Data Vital Signs: Vital Signs Temp Pulse Resp BP Pulse Ox O2 Del Method 98.0 F 66 16 100/71 95 Room Air 06/07/22 15:52 06/07/22 15:52 06/07/22 15:52 06/07/22 15:52 06/07/22 15:52 06/07/22 15:52 Oxygen Delivery Method Room Air Weight: 80 kg Body Mass Index (BMI) 24.9 Intake & Output: Intake and Output for Last 24 Hours 06/05/22 06/06/22 06/07/22 23:59 23:59 23:59 Intake Total 325 / 325 2200 / 2200 875 / 875 Output Total 2100 / 2100 700 / 700 Balance 325 / 325 100 / 100 175 / 175 Lab / Micro Data Result Diagrams: 06/07/22 07:00 06/07/22 07:00 Labs: Laboratory Results - last 24 hr 06/07/22 07:00: Vancomycin Trough 16.8 H 06/07/22 07:00: WBC 10.0, RBC 4.20 L, Hgb 12.0 L, Hct 36.8 L, MCV 87.6, MCH 28.6, MCHC 32.6, RDW Std Deviation 46.7 H, RDW Coeff of Beverly 14.6, Plt Count 269, MPV 9.7, Immature Gran % (Auto) 0.600, Neut % (Auto) 63.3, Lymph % (Auto) 19.9, [place] % (Auto) 13.3 H, Eos % (Auto) 2.5, Baso % (Auto) 0.4, Absolute Neuts (auto) 6.3, Absolute Lymphs (auto) 1.99, Nucleated RBC % 0 06/07/22 07:00: PT 28.2 H, INR 2.7 06/07/22 07:00: Sodium 139, Potassium 4.4, Chloride 108 H, Carbon Dioxide 28.0, Anion Gap 3 L, BUN 25 H, Creatinine 0.95, Estim Creat Clear Calc 64.04, Est GFR (MDRD) Af Amer 99, Est GFR (MDRD) Non-Af 81, BUN/Creatinine Ratio 26.4 H, Gluco se 101, Calcium 8.5 Micro: Microbiology 06/05/22 09:00 Wound - Leg, Right Gram Stain - Final 06/05/22 09:00 Wound - Leg, Right Wound Culture - Preliminary Staphylococcus aureus Physical Exam Const alert, oriented x3 and no apparent distress Constitutional Narrative: Elderly white male sitting up in bed, appears comfortable, nontoxic HEENT head/scalp atraumatic and moist oral mucous membranes HEENT Narrative: Titian is poor, Mallampati 2, no thrush Head and Scalp: normocephalic Resp normal respiratory effort, no retractions, no use of accessory muscles and clear to auscultation bilaterally Resp Narrative: Diffusely diminished but clear Auscultation: Negative for crackles, rhonchi or wheezes Cardio regular rate, regular rhythm, S1 normal heart sound, S2 normal heart sound, no murmurs, no rub, no gallops and no clicks GI normal to inspection, nondistended, normoactive bowel sounds, soft to palpation and non-tender Extremity Extremity Narrative: Right lower extremity with edema, Jose Maria wrap in place with dressing under, left lower extremity without any swelling, no cyanosis or clubbing, cap refill is 2+ bilateral lower extremities Skin Skin Narrative: Images of right lower extremity reviewed Neuro oriented x3, moves all extremities and no focal motor deficits Speech: speech normal Psych affect normal Psych Narrative: Pleasant Assessment & Plan Assessment/Plan (1) Chronic ulcer of right lower leg: (2) Cellulitis of leg, right: (3) Physical debility: (4) Edema of right lower leg: PLAN: Plan Right lower extremity wound -Outpatient cultures done on 05/29/2022 that showed MSSA and Pseudomonas -Antibiotics were not started as of yet -Wound cultures from admission showing staph aureus thus far -Blood cultures remain pending -Wound care is following -Continue diuresis to decrease volume to help with healing -Continue vancomycin and Zosyn -I do anticipate that we will able to convert to orals and discharge tomorrow -Micheal to help with wound healing -Patient has been accepted at [facility] and pre-CERT has been obtained CAD/history of stroke/HPL/HTN -Patient is not currently on any aspirin or blood pressure medication at home -Continue aspirin but discontinue Coreg as patient's blood pressures have been low -Continue home atorvastatin -Previous PCI -No current acute issues -Continued ordered Lasix Debility -PT/OT consultation -Home is evidently in disrepair and patient will need placed Dementia -Type unclear however suspect vascular with history -Continue home Aricept -PT/OT consulted GERD -Patient currently not anything -Was previously on famotidine Hypothyroidism -Continue levothyroxine Vitamin D deficiency -Continue home cholecalciferol Urinary incontinence -Continue oxybutynin 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 and will need to keep a close eye on this with antibiotic usage History of prostate cancer -No current issues Tobacco abuse -Recommend cessation -Nicotine replacement if desired -We will most certainly complicate wound healing DVT prophylaxis -Patient is fully anticoagulated with Coumadin CODE STATUS -Full code
[2022-06-07] MEDS: Jantoven 2 MG Tablet PO (17:48)
[2022-06-07] MEDS: Atorvastatin Calcium 40 MG Tablet PO (21:22)
[2022-06-07] MEDS: Donepezil HCl 10 MG Tablet PO (21:22)
[2022-06-08] VITALS (7 sets, daily range): BP systolic 113–133; BP diastolic 58–78; PULSE 64–70; RESP 16–18; TEMP 36.9–37.2; O2SAT 92–96
[2022-06-08] MEDS: Levothyroxine 50 MCG Tablet PO (05:12)
[2022-06-08] MEDS: Aspirin 81 MG TAB.CHEW PO (07:45)
[2022-06-08] MEDS: Juven (unflavored) Packet 1 PACKET PO ×2 (07:45→16:46)
[2022-06-08] MEDS: Cholecalciferol (VIT D3) 25 MCG TABLET (1,000 UNITS) PO (07:45)
[2022-06-08] MEDS: Celecoxib 200 MG Capsule PO (07:45)
--- NOTE | 2022-06-08 07:47 | WOUNDNOTE ---
wound photo: right lower leg
--- NOTE | 2022-06-08 07:48 | WOUNDNOTE ---
wound photo: right lower leg
--- NOTE | 2022-06-08 07:48 | WOUNDNOTE ---
wound photo: right lower leg
--- NOTE | 2022-06-08 10:52 | CASEMGMT ---
Social Work SW called [facility] to inform pt will discharge today. [place] at [facility] voiced understanding. Requested d/c orders be sent. SW informed d/c orders will be sent via [facility]. SW informed pt of plan to d/c today. Pt voiced understanding. Pt declined SW update friends or family, stated anyone that needs to know has already been informed. PLAN: SNEHAL Rebollar
--- NOTE | 2022-06-08 14:17 | DS.PCM_ITS ---
Providers Date of Admission: 06/05/22 Primary Care Physician: Dr. 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 Routine Comment: Reason for Consult:: RLE wound Reason For Visit: RLE INFECTED ULCERATED WOUND Diagnosis Discharge Diagnosis (1) Chronic ulcer of right lower leg: Status: Acute Code(s): L97.919 - Non-pressure chronic ulcer of unspecified part of right lower leg with unspecified severity (2) Cellulitis of leg, right: Status: Acute Code(s): L03.115 - Cellulitis of right lower limb (3) Physical debility: Status: Acute Code(s): R53.81 - Other malaise (4) Edema of right lower leg: Status: Acute Code(s): R60.0 - Localized edema Plan Right lower extremity wound -Outpatient cultures done on 05/29/2022 that showed MSSA and Pseudomonas -Antibiotics were not started as of yet -Wound cultures from admission showing staph aureus thus far -Blood cultures remain pending -Wound care is following -Continue diuresis to decrease volume to help with healing -Continue vancomycin and Zosyn -I do anticipate that we will able to convert to orals and discharge tomorrow -Micheal to help with wound healing -Patient has been accepted at [facility] and pre-CERT has been obtained CAD/history of stroke/HPL/HTN -Patient is not currently on any aspirin or blood pressure medication at home -Continue aspirin but discontinue Coreg as patient's blood pressures have been low -Continue home atorvastatin -Previous PCI -No current acute issues -Continued ordered Lasix Debility -PT/OT consultation -Home is evidently in disrepair and patient will need placed Dementia -Type unclear however suspect vascular with history -Continue home Aricept -PT/OT consulted GERD -Patient currently not anything -Was previously on famotidine Hypothyroidism -Continue levothyroxine Vitamin D deficiency -Continue home cholecalciferol Urinary incontinence -Continue oxybutynin 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 and will need to keep a close eye on this with antibiotic usage History of prostate cancer -No current issues Tobacco abuse -Recommend cessation -Nicotine replacement if desired -We will most certainly complicate wound healing DVT prophylaxis -Patient is fully anticoagulated with Coumadin CODE STATUS -Full code Medications at Discharge Home Medications celecoxib 200 mg capsule 200 mg PO DAILY Check with primary doctor 02/23/21 cholecalciferol (vitamin D3) 25 mcg (1,000 unit) tablet (Vitamin D3) 25 mcg PO DAILY supplement 02/23/21 levothyroxine 50 mcg tablet (Euthyrox) 50 mcg PO DAILY thyroid 02/23/21 atorvastatin 40 mg tablet 40 mg PO QHS cholesterol 06/05/22 donepezil 10 mg tablet 10 mg PO QHS memory 06/05/22 arginine 7 gram-glutam 7 gram-CaHMB 1.5 [id number] oral pwd pkt (Micheal (with collagen)) 1 packet PO BIDCM #0 ea 06/08/22 aspirin 81 mg chewable tablet 81 mg PO BREAKFAST #0 tabs 06/08/22 oxycodone 5 mg tablet 5 mg PO Q4H PRN PRN Pain Score 4-10 1 day #6 tabs 06/08/22 piperacillin-tazobactam 4.5 gram/100 mL dextrose(iso-osm) IV piggyback (Zosyn) 3.375 g (84.375 mL) IV Q8H #1,200 mL 06/08/22 sennosides 8.6 mg-docusate sodium 50 mg tablet (Stool Softener-Stimulant Laxative) 2 tab PO BID PRN PRN Constipation #0 tabs 06/08/22 warfarin 2.5 mg tablet (Jantoven) 2.5 mg PO DAILY@1700 #0 tabs 06/08/22 Hospital Course Operations None Procedures - (X-rays right tibia and fibula) Summary of Care Provided Minutes Spent on Discharge: 38 Hospital Course: Mr. Barraza is an 82-year-old white male who presented to the emergency department at [facility] for worsening right lower extremity wound and edema. The patient had been going to the wound center for right lower extremity medial leg ulcer that was complicated by chronic left lower extremity edema. This has been going on for approximately 4 weeks with treatment in outpatient setting. He had required some oral antibiotics with cefdinir and doxycycline but had significant ongoing swelling of the leg and increased drainage and is unable to wear compression hose because it was too uncomfortable. Upon presentation the ulcer had enlarged and was nearly circumferential around the right lower extremity with increased edema and pain. Work-up in the ED included T97.5, heart 87, BP 151/86, respiratory rate 15, 97% on room air, CBC with WC 9.6, hemoglobin 13.1, platelet 280 without marked shift, ESR 79, CRP 82.70, coags with PT 33.4, INR 3.3, BMP with chloride 108 otherwise not marked appearing, urinalysis with elevated specific remedy 1.025, protein 15, ketone 5, occult blood 10, negative nitrite, leukocyte Estrace 25, no evidence of any urinary tract infection, right plain film of the tibia and fibula with no acute findings, blood culture x2 pending per ED. given the findi ngs on presentation he was started on Zosyn. Previous cultures showed MSSA and Pseudomonas in that wound. Repeat cultures appear to be consistent with this. Clinically his pain has improved. Blood cultures are with no growth and overall he is doing much better. He was seen by wound care during this hospitalization and will need ongoing wound care with IV antibiotics after discharge. Unfortun ately the only oral antibiotic which would cover both his MSSA and Pseudomonas would be a jason quinolone and he is allergic to these as they give him a rash. Given this, a midline will be placed and he will be placed on Zosyn to complete his antibiotic course. He will remain on this for another 8 days after discharge. He had marked debility upon evaluation of physical and Occupational Therapy and on presentation there was concern by his significant other with regards to his ability to take care of himself. His significant other reported that he was living in dirty conditions and was not taking care of the wound by himself and felt that he could no longer live alone. He was accepted for ongoing treatment at [facility]. He was discharged in stable condition with continue IV antibiotics on 06/08/2022. Discharge diagnoses: Right lower extremity wound infection--> MSSA/Pseudomonas Right lower extremity edema CAD History of stroke Hyperlipidemia Hypertension Debility Dementia GERD Hypothyroidism Vitamin D deficiency Urinary incontinence History of DVT/PE History of prostate cancer Tobacco abuse Physical Exam Const alert, oriented x3 and no apparent distress Constitutional Narrative: Elderly white male sitting up, eating breakfast, appears comfortable, nontoxic General Appearance: cooperative, comfortable and well developed Orientation / Consciousness: awake, oriented to person, oriented to place and oriented to time Exam Limitations: no limitations HEENT normocephalic, head/scalp atraumatic and moist oral mucous membranes HEENT Narrative: Moderate hearing loss, dentition is poor, Mallampati is 2, no thrush Eyes PERRL, EOMs intact bilaterally and conjunctivae normal Eyes Narrative: No scleral icterus Neck no lymphadenopathy and supple Neck Narrative: Trachea midline, no thyroid enlargement Resp normal respiratory effort, no retractions, no use of accessory muscles and clear to auscultation bilaterally Resp Narrative: Diffusely diminished but clear Auscultation: Negative for crackles, rhonchi or wheezes Cardio regular rate, regular rhythm, S1 normal heart sound, S2 normal heart sound, no murmurs, no rub, no gallops and no clicks GI normal to inspection, nondistended, normoactive bowel sounds, soft to palpation and non-tender Extremity Extremity Narrative: Right lower extremity with edema, Jose Maria wrap in place with dressing under, left lower extremity without any swelling, no cyanosis or clubbing, cap refill is 2+ bilateral lower extremities Skin Skin Narrative: Images of right lower extremity reviewed Neuro oriented x3, CN's II-XII intact bilaterally, moves all extremities, no focal motor deficits and no sensory deficits noted Neuro Narrative: Generalized weakness with decreased muscle strength proximal greater than distal Speech: speech normal Psych affect normal Psych Narrative: Pleasant Weight / BMI Weight Weight: 80.6 kg Body Mass Index (BMI) 24.9 ABG / Lab / Microbiology Data Result Diagrams: 06/07/22 07:00 06/07/22 07:00 Microbiology: Microbiology 06/08/22 10:22 Nasal Secretion SARS-CoV-2 Antigen (Rapid) - Final 06/05/22 18:53 Blood Culture (Wb) - Anticubital Left Blood Culture - Preliminary No growth in 48 hours. 06/05/22 18:25 Blood Culture (Wb) - Anticubital Left Blood Culture - Preliminary No growth in 48 hours. 06/05/22 09:00 Wound - Leg, Right Gram Stain - Final 06/05/22 09:00 Wound - Leg, Right Wound Culture - Preliminary Staphylococcus aureus Gram negative amparo Meaningful Use Info Meaningful Use Diagnoses (Choose all that apply): None applicable Discharge Plan Admission Admit Date/Time: 06/05/22 20:28 Primary Reason for Your Visit: Right lower extremity wound Attending Provider: Steffanie Villar Primary Care Provider: Sandip Walker Chi Consulting Providers: Colleen Ireland Discharge Orders/Prescriptions Prescriptions: New aspirin 81 mg Tablet,Chewable 81 mg PO BREAKFAST Qty: 0 0RF Micheal (with collagen) 7-7-1.5 gram Powder In Packet 1 packet PO BIDCM Qty: 0 0RF oxycodone 5 mg Tablet 5 mg PO Q4H PRN PRN (Reason: Pain Score 4-10) 1 Days Qty: 6 0RF sennosides-docusate sodium [Stool Softener-Stimulant Laxat] 8.6-50 mg Tablet 2 tab PO BID PRN PRN (Reason: Constipation) Qty: 0 0RF warfarin [Jantoven] 2.5 mg Tablet 2.5 mg PO DAILY@1700 Qty: 0 0RF Zosyn in dextrose (iso-osm) 4.5 gram/100 mL piggyback 3.375 g IV Q8H Qty: 1200 0RF Continued celecoxib 200 mg capsule 200 mg PO DAILY Label Comments: TAKE 1 CAPSULE BY MOUTH ONCE DAILY WITH FOOD levothyroxine [Euthyrox] 50 mcg tablet 50 mcg PO DAILY Label Comments: TAKE 1 TABLET BY MOUTH ONCE DAILY FOR 90 DAYS cholecalciferol (vitamin D3) [Vitamin D3] 25 mcg (1,000 unit) Tablet 25 mcg PO DAILY atorvastatin 40 mg Tablet 40 mg PO QHS donepezil 10 mg Tablet 10 mg PO QHS Discontinued warfarin 5 mg tablet 4.5 mg PO DAILY Label Comments: TAKE DIRECTED Referrals / Follow Up: Sandip Walker Chi, MD [Primary Care Provider] - Within 1 Month Disposition Disposition (needs filled in before D/C Order can be placed): [facility] Charges/Coding Visit Charges Inpatient E&M: 40997 SNF Disch >30 Min
--- NOTE | 2022-06-08 15:23 | PCM.TXEXTCAR ---
Diet Diet Order/Speech Therapy: 06/05/22 22:00 Diet: Cardiac - Heart Healthy Food consistency:: Regular Liquid Consistency:: Regular/Thin Type of Dietary Supplement:: Ensure Plus High Protein Diet Comments: 120 ml TID w/ meals Routine Orders/Code Status O2 Frequency: PRN Routine Lab Work: CBC (In 1 week), BMP (In 1 week) and INR (Daily while on antibiotics) Code Status: Full Code Wound(s) RIGHT LEG: Wound Type: scattered open wounds with surrounding improving cellulutis Dressing Change: Adaptic Therapies Weight Bearing: Full weight bearing Physical Therapy: Eval and Treat Occupational Therapy: Eval and Treat Problem/Diagnosis (1) Chronic ulcer of right lower leg: Status: Acute Code(s): L97.919 - Non-pressure chronic ulcer of unspecified part of right lower leg with unspecified severity (2) Cellulitis of leg, right: Status: Acute Code(s): L03.115 - Cellulitis of right lower limb (3) Physical debility: Status: Acute Code(s): R53.81 - Other malaise (4) Edema of right lower leg: Status: Acute Code(s): R60.0 - Localized edema Allergies/Procedures Done in Hospital Allergies cephalexin [From Keflex] Allergy (Verified 06/05/22 17:23) Rash ciprofloxacin [From Cipro] Allergy (Verified 06/05/22 17:23) Rash Gadolinium-MRI Contrast Medium [DYE] Allergy (Verified 06/05/22 17:23) Rash prednisone Allergy (Verified 06/05/22 17:23) Rash shellfish derived Allergy (Verified 06/05/22 17:23) Rash Procedures: None Type of Care/Length of Stay Estimated LOS: Convalescent Care Less Than 30 days Type of Care Needed: Skilled Rehab Potential: Good Prognosis: Good Additional Orders/Day of Discharge Day of Discharge: 06/08/22 Dietary and Speech Recommendations Dietitian Recommendations/Changes: Continue cardiac diet. Will add 120ml ensure plus high protein TID w/ meals. Will add Micheal BID w/ medpass. Trend weights as available; no past weights available in EMR. Discharge Plan Admission Admit Date/Time: 06/05/22 20:28 Primary Reason for Your Visit: Right lower extremity wound Attending Provider: Steffanie Villar Primary Care Provider: Sandip Walker Chi Consulting Providers: Colleen Ireland Discharge Orders/Prescriptions Prescriptions: New aspirin 81 mg Tablet,Chewable 81 mg PO BREAKFAST Qty: 0 0RF Micheal (with collagen) 7-7-1.5 gram Powder In Packet 1 packet PO BIDCM Qty: 0 0RF oxycodone 5 mg Tablet 5 mg PO Q4H PRN PRN (Reason: Pain Score 4-10) 1 Days Qty: 6 0RF sennosides-docusate sodium [Stool Softener-Stimulant Laxat] 8.6-50 mg Tablet 2 tab PO BID PRN PRN (Reason: Constipation) Qty: 0 0RF warfarin [Jantoven] 2.5 mg Tablet 2.5 mg PO DAILY@1700 Qty: 0 0RF Zosyn in dextrose (iso-osm) 4.5 gram/100 mL piggyback 3.375 g IV Q8H Qty: 1200 0RF Continued celecoxib 200 mg capsule 200 mg PO DAILY Label Comments: TAKE 1 CAPSULE BY MOUTH ONCE DAILY WITH FOOD levothyroxine [Euthyrox] 50 mcg tablet 50 mcg PO DAILY Label Comments: TAKE 1 TABLET BY MOUTH ONCE DAILY FOR 90 DAYS cholecalciferol (vitamin D3) [Vitamin D3] 25 mcg (1,000 unit) Tablet 25 mcg PO DAILY atorvastatin 40 mg Tablet 40 mg PO QHS donepezil 10 mg Tablet 10 mg PO QHS Discontinued warfarin 5 mg tablet 4.5 mg PO DAILY Label Comments: TAKE DIRECTED Referrals / Follow Up: Sandip Walker Chi, MD [Primary Care Provider] - Within 1 Month Disposition Disposition (needs filled in before D/C Order can be placed): Nursing Home Facility
--- NOTE | 2022-06-08 15:50 | CASEMGMT ---
Social Work? JOSSIE notified pt discharge to [facility] today. JOSSIE completed 7000 convalescent form in [employer]. JOSSIE faxed all discharge orders to [facility] between 5:30-6:00. JOSSIE informed transport will be set up after. JOSSIE made copies of discharge orders and placed on pt chart. Sent original orders in envelope with pt upon discharge.?? Disposition: Myles Alejandre, skilled, convalescent, level of care? SNEHAL Solano
[2022-06-08] MEDS: Jantoven 2 MG Tablet PO (16:48)
[2022-06-08 19:30] LABS: Vancomycin, Trough Level 23.1 ug/mL (5.0-15.0)
== END 2022-06-08 19:35 | disposition skilled nursing facility (03) | DRG 603 ==
LOC: ED 18:17 → MS3 20:40
PROVIDERS: Physician Assistant; Admitting Provider Family Medicine; Emergency Provider Student in an Organized Health Care Education/Training Program; PCP Family Medicine Geriatric Medicine; Visit Provider Internal Medicine
DX: L03.115 Cellulitis of right lower limb (principal); I69.351 Hemiplegia and hemiparesis following cerebral infarction affecting right dominant side; L97.812 Non-pressure chronic ulcer of other part of right lower leg with fat layer exposed; F03.90 Unspecified dementia, unspecified severity, without behavioral disturbance, psychotic disturbance, mood disturbance, and anxiety; E03.9 Hypothyroidism, unspecified; I25.10 Atherosclerotic heart disease of native coronary artery without angina pectoris; I10 Essential (primary) hypertension; E78.00 Pure hypercholesterolemia, unspecified; F17.290 Nicotine dependence, other tobacco product, uncomplicated; E55.9 Vitamin D deficiency, unspecified; I89.0 Lymphedema, not elsewhere classified; K21.9 Gastro-esophageal reflux disease without esophagitis; B95.61 Methicillin susceptible Staphylococcus aureus infection as the cause of diseases classified elsewhere; B96.5 Pseudomonas (aeruginosa) (mallei) (pseudomallei) as the cause of diseases classified elsewhere; R53.81 Other malaise; R60.0 Localized edema; G89.29 Other chronic pain; Z20.822 Contact with and (suspected) exposure to COVID-19; R32 Unspecified urinary incontinence; Z79.01 Long term (current) use of anticoagulants; Z79.890 Hormone replacement therapy; Z79.899 Other long term (current) drug therapy; Z85.46 Personal history of malignant neoplasm of prostate; Z86.718 Personal history of other venous thrombosis and embolism; Z86.711 Personal history of pulmonary embolism; Z95.5 Presence of coronary angioplasty implant and graft
CPT/HCPCS: 11042; 11045; 36415; 73590; 80048; 80053; 80202; 81001; 83735; 84100; 85025; 85610; 85652; 86140; 87040; 87070; 87077; 87186; 87205; 87426; 87640; 97162; 97166; 97530; 97535; 97802; 99284; J7030; J7050; A4216; J1940

== ENCOUNTER → 2022-07-17 | Outpatient (CLI) | payer MEDICARE, SELFPAY ==
[2022-07-17 17:11] LABS: Anion Gap 5 (5-15); BUN 20 mg/dL (7-18); BUN/Creat Ratio 18.7 RATIO (10-20); Calcium,Total 9.3 mg/dL (8.5-10.1); Chloride 104 mmol/L (98-107); Creatinine, Serum 1.07 mg/dL (0.70-1.30); EST Glomerular Filtration Rate 71 mL/min (>60); Est Glom Filt Rate - Afr Amer 85 mL/min (>60); Glucose 96 mg/dL (74-106); Potassium 4.6 mmol/L (3.5-5.1); Sodium Level 138 mmol/L (136-145)
== END | disposition home or self-care (01) ==
LOC: POLAB3 16:07
PROVIDERS: Anesthesiology; PCP Family Medicine Geriatric Medicine; Visit Provider Family Medicine Geriatric Medicine
DX: L03.115 Cellulitis of right lower limb (principal)
CPT/HCPCS: 36415; 80048; 83735

== ENCOUNTER → 2022-08-22 | Outpatient (CLI) | payer MEDICARE, SELFPAY ==
[2022-08-22 17:45] LABS: Anion Gap 6 (5-15); BUN 16 mg/dL (7-18); BUN/Creat Ratio 17.8 RATIO (10-20); Calcium,Total 9.1 mg/dL (8.5-10.1); Chloride 108 mmol/L (98-107); EST Glomerular Filtration Rate 86 mL/min (>60); Est Glom Filt Rate - Afr Amer 104 mL/min (>60); Glucose 92 mg/dL (74-106); Potassium 4.5 mmol/L (3.5-5.1); Sodium Level 140 mmol/L (136-145)
== END | disposition home or self-care (01) ==
LOC: POLAB3 15:41
PROVIDERS: PCP Family Medicine Geriatric Medicine; Visit Provider Family Medicine Geriatric Medicine
DX: E87.6 Hypokalemia (principal)
CPT/HCPCS: 36415; 80048

== ENCOUNTER → 2022-11-14 | Outpatient (CLI) | payer MEDICARE, SELFPAY ==
[2022-11-14 17:23] LABS: Absolute Neutrophil Count 6.2 X10^3/uL (2.0-7.7); Basophil# 0.04 X10^3/uL; Basophil% 0.4 % (0-1); Eosinophil# 0.11 X10^3/uL; Eosinophils% 1.2 % (0-5); Hematocrit 44.5 % (40-54); Lymphocyte % 23.4 % (19-41); Mean Corp Hgb Conc 31.5 g/dL (32-36); Mean Corpuscular Hgb 28.3 pg (27.0-32.0); Mean Corpuscular Volume 90.1 fL (80-94); Mean Platelet Vol. 10.7 fl (6.2-12.0); Monocyte# 0.81 X10^3/uL; Monocyte% 8.6 % (0-10); NRBC Flagged by Analyzer 0 % (0-5); Neutrophil # 6.19 X10^3/uL (2.7-7.7); Neutrophil % 65.9 % (47-70); Platelet Count 197 K/mm3 (150-450); RBC Distribution Width CV 15.8 % (11.6-14.6); RBC Distribution Width SD 51.8 fl (35.1-43.9); Red Blood Count 4.94 M/mm3 (4.6-6.2); White Blood Count 9.4 K/mm3 (4.4-11.0)
[2022-11-14 18:30] LABS: Vitamin D,25 Hydroxy 61.3 ng/mL
[2022-11-14 18:38] LABS: ALB/GLOB Ratio 0.9 RATIO (0.9-2.4); AST(SGOT) 28 U/L (15-37); Alanine Aminotransfer ALT/SGPT 29 U/L (16-61); Albumin, Serum 3.5 g/dL (3.2-5.0); Alkaline Phosphatase 101 U/L (45-117); Anion Gap -1 (5-15); BUN 16 mg/dL (7-18); BUN/Creat Ratio 15.8 RATIO (10-20); Calcium,Total 8.8 mg/dL (8.5-10.1); Chloride 112 mmol/L (98-107); Creatinine, Serum 1.01 mg/dL (0.70-1.30); EST Glomerular Filtration Rate 75 mL/min (>60); Est Glom Filt Rate - Afr Amer 91 mL/min (>60); Globulin 3.9 g/dL (2.2-4.2); Glucose 90 mg/dL (74-106); Potassium 4.9 mmol/L (3.5-5.1); Protein, Total 7.4 g/dL (6.4-8.2); Sodium Level 139 mmol/L (136-145)
== END | disposition home or self-care (01) ==
LOC: LAB 16:58
PROVIDERS: PCP Family Medicine Geriatric Medicine; Visit Provider Family Medicine Geriatric Medicine
DX: I10 Essential (primary) hypertension (principal); E55.9 Vitamin D deficiency, unspecified
CPT/HCPCS: 36415; 80053; 82306; 84443; 85025

== ENCOUNTER → 2023-05-22 | Outpatient (CLI) | payer MEDICARE, SELFPAY ==
[2023-05-22 16:33] LABS: Absolute Lymphocyte Count 2.14 X10^3/uL (0.83-4.51); Absolute Neutrophil Count 5.5 X10^3/uL (2.0-7.7); Basophil# 0.05 X10^3/uL; Basophil% 0.5 % (0-1); Eosinophil# 0.55 X10^3/uL; Eosinophils% 5.9 % (0-5); Lymphocyte # 2.14 X10^3/ul (0.83-4.51); Lymphocyte % 22.8 % (19-41); Mean Corp Hgb Conc 31.1 g/dL (32-36); Monocyte# 1.03 X10^3/uL; NRBC Flagged by Analyzer 0 % (0-5); Neutrophil # 5.54 X10^3/uL (2.7-7.7); Neutrophil % 59.2 % (47-70); Platelet Count 210 K/mm3 (150-450); RBC Distribution Width CV 14.9 % (11.6-14.6); RBC Distribution Width SD 48.7 fl (35.1-43.9); White Blood Count 9.4 K/mm3 (4.4-11.0)
[2023-05-22 16:58] LABS: Vitamin D,25 Hydroxy 53.2 ng/mL
[2023-05-22 17:06] LABS: ALB/GLOB Ratio 0.7 RATIO (0.9-2.4); AST(SGOT) 26 U/L (15-37); Alanine Aminotransfer ALT/SGPT 25 U/L (16-61); Albumin, Serum 3.3 g/dL (3.2-5.0); Alkaline Phosphatase 112 U/L (45-117); Anion Gap 5 (5-15); BUN 18 mg/dL (7-18); Calcium,Total 8.7 mg/dL (8.5-10.1); Chloride 111 mmol/L (98-107); EST Glomerular Filtration Rate 76 mL/min (>60); Est Glom Filt Rate - Afr Amer 92 mL/min (>60); Globulin 4.5 g/dL (2.2-4.2); Glucose 89 mg/dL (74-106); Potassium 4.3 mmol/L (3.5-5.1); Protein, Total 7.8 g/dL (6.4-8.2); Sodium Level 140 mmol/L (136-145); Thyroid Stim Hormone (TSH) 2.65 uIU/mL (0.358-3.74)
== END | disposition home or self-care (01) ==
LOC: POLAB3 14:59
PROVIDERS: PCP Family Medicine Geriatric Medicine; Visit Provider Family Medicine Geriatric Medicine
DX: I10 Essential (primary) hypertension (principal); E55.9 Vitamin D deficiency, unspecified
CPT/HCPCS: 36415; 80053; 82306; 84443; 85025

== ENCOUNTER → 2023-05-22 | Outpatient (CLI) | payer MEDICARE, SELFPAY ==
--- NOTE | 2023-05-22 15:53 | VDLE_ITS ---
Reason For Study: Left leg swelling RIGHT LEFT CFV is compressible, spontaneous, phasic, GSV is normal. competent and demonstrates normal CFV is compressible, spontaneous, phasic, augmentation. competent, and demonstrates normal Procedure augmentation. This is a venous duplex using B-mode, color FV is compressible, spontaneous, phasic, flow and spectral Doppler. competent and demonstrates normal Exam performed in department. augmentation. A preliminary report was called and/or faxed POP V is compressible, spontaneous, phasic, to Dr. walker. competent and demonstrates normal augmentation. T/P Trunk is compressible. PTV is compressible. LT PerV is compressible. VL/Venous Duplex US, Unilateral Interpretation Summary There is no evidence of left lower extremity deep vein thrombosis. Left great s aphenous vein appears patent and compressible segmentally. Normal flow patterns right common femoral vein Ordering Physician: Sandip Walker Chi Referring Physician: Sandip Walker Chi Performed By: Mirian Muir RVT
== END | disposition home or self-care (01) ==
LOC: CVS 15:52
PROVIDERS: PCP Family Medicine Geriatric Medicine; Visit Provider Family Medicine Geriatric Medicine
DX: M79.89 Other specified soft tissue disorders (principal)
CPT/HCPCS: 93971

== ENCOUNTER → 2023-09-09 | Outpatient (CLI) | payer MEDICARE, SELFPAY ==
--- NOTE | 2023-09-09 16:20 | RAD_ITS ---
INDICATION: SOB EXAMINATION/TECHNIQUE: X-RAY - XR Chest 2 Views COMPARISON: None. FINDINGS: LINES/DEVICES: None. LUNGS: No consolidation, edema or effusion. Mild diffuse peribronchial thickening. No pneumothorax. MEDIASTINUM AND CARDIOVASCULAR STRUCTURES: Cardiac silhouette not enlarged. BONES AND SOFT TISSUES: Lateral curvature of the thoracolumbar spine.. RAD/Chest PA and Lateral IMPRESSION: No radiographic evidence of consolidative pneumonia or florid edema. Mild diffuse peribronchial thickening as can be seen with bronchitis/bronchiolitis or mild chronic interstitial lung disease. High-resolution chest CT could further evaluate as clinically indicated. Electronically Signed: Polo Carr MD at 19:09 EDT ,
== END | disposition home or self-care (01) ==
LOC: RAD 16:14
PROVIDERS: PCP Family Medicine Geriatric Medicine; Referring Provider Family Medicine Geriatric Medicine; Visit Provider Family Medicine Geriatric Medicine
DX: R06.02 Shortness of breath (principal)
CPT/HCPCS: 71046

== ENCOUNTER → 2023-09-11 | Outpatient (CLI) | payer MEDICARE, SELFPAY ==
[2023-09-11 17:59] LABS: Absolute Lymphocyte Count 4.79 X10^3/uL (0.83-4.51); Basophil# 0.05 X10^3/uL; Basophil% 0.5 % (0-1); Eosinophil# 0.21 X10^3/uL; Eosinophils% 1.9 % (0-5); Hematocrit 36.4 % (40-54); Hemoglobin 10.8 g/dL (13.0-16.5); Lymphocyte # 4.79 X10^3/ul (0.83-4.51); Lymphocyte % 44.3 % (19-41); Mean Corp Hgb Conc 29.7 g/dL (32-36); Mean Corpuscular Hgb 26.2 pg (27.0-32.0); Mean Corpuscular Volume 88.3 fL (80-94); Mean Platelet Vol. 10.7 fl (6.2-12.0); Monocyte# 0.69 X10^3/uL; Monocyte% 6.4 % (0-10); NRBC Flagged by Analyzer 0 % (0-5); Neutrophil # 5.04 X10^3/uL (2.7-7.7); Neutrophil % 46.6 % (47-70); Platelet Count 273 K/mm3 (150-450); RBC Distribution Width CV 16.5 % (11.6-14.6); RBC Distribution Width SD 53.2 fl (35.1-43.9); Red Blood Count 4.12 M/mm3 (4.6-6.2); White Blood Count 10.8 K/mm3 (4.4-11.0)
[2023-09-11 18:11] LABS: D-Dimer Quantitative (DVT/PE) 1.84 FEU/ug/m (0.27-0.49)
[2023-09-11 18:18] LABS: BNP,B-Type NATRIURETIC PEPTIDE 162.9 pg/mL (0-100)
[2023-09-11 18:20] LABS: ALB/GLOB Ratio 0.7 RATIO (0.9-2.4); AST(SGOT) 24 U/L (15-37); Alanine Aminotransfer ALT/SGPT 15 U/L (16-61); Alkaline Phosphatase 100 U/L (45-117); Anion Gap 6 (5-15); BUN 13 mg/dL (7-18); BUN/Creat Ratio 13.5 RATIO (10-20); Calcium,Total 9.2 mg/dL (8.5-10.1); Chloride 113 mmol/L (98-107); Creatinine, Serum 0.96 mg/dL (0.70-1.30); EST Glomerular Filtration Rate 79 mL/min (>60); Est Glom Filt Rate - Afr Amer 96 mL/min (>60); Globulin 4.3 g/dL (2.2-4.2); Glucose 98 mg/dL (74-106); Protein, Total 7.3 g/dL (6.4-8.2); Sodium Level 144 mmol/L (136-145)
== END | disposition home or self-care (01) ==
LOC: POLAB3 16:59
PROVIDERS: PCP Family Medicine Geriatric Medicine; Visit Provider Family Medicine Geriatric Medicine
DX: R06.02 Shortness of breath (principal)
CPT/HCPCS: 36415; 80053; 83880; 85025; 85379

== ENCOUNTER → 2023-09-16 | Outpatient (CLI) | payer MEDICARE, SELFPAY ==
[2023-09-16 15:03] LABS: Hemoglobin 10.7 g/dL (13.0-16.5); Mean Corp Hgb Conc 30.6 g/dL (32-36); Mean Corpuscular Hgb 27.1 pg (27.0-32.0); Mean Corpuscular Volume 88.6 fL (80-94); Mean Platelet Vol. 10.5 fl (6.2-12.0); Platelet Count 239 K/mm3 (150-450); RBC Distribution Width CV 16.5 % (11.6-14.6); RBC Distribution Width SD 54.4 fl (35.1-43.9); Red Blood Count 3.95 M/mm3 (4.6-6.2); White Blood Count 8.4 K/mm3 (4.4-11.0)
[2023-09-16 15:27] LABS: Anion Gap 6 (5-15); BUN 18 mg/dL (7-18); Calcium,Total 9.2 mg/dL (8.5-10.1); Chloride 112 mmol/L (98-107); Creatinine, Serum 0.82 mg/dL (0.70-1.30); EST Glomerular Filtration Rate 96 mL/min (>60); Est Glom Filt Rate - Afr Amer 116 mL/min (>60); Glucose 95 mg/dL (74-106); Potassium 3.9 mmol/L (3.5-5.1); Sodium Level 144 mmol/L (136-145)
== END | disposition home or self-care (01) ==
LOC: LAB 14:23
PROVIDERS: PCP Family Medicine Geriatric Medicine; Referring Provider Family Medicine Geriatric Medicine; Visit Provider Family Medicine Geriatric Medicine
DX: I10 Essential (primary) hypertension (principal); R06.02 Shortness of breath
CPT/HCPCS: 36415; 80048; 85027

== ENCOUNTER → 2023-10-24 | Outpatient (CLI) | payer MEDICARE, SELFPAY ==
--- NOTE | 2023-10-24 12:56 | ECHOD_ITS ---
Reason For Study: SOB Procedure This was a 2D Doppler, Color Flow transthoracic echocardiogram. Exam performed in department. Left Ventricle Normal LV size. The estimated ejection fraction is 55 %. Diastolic function is indeterminate. No regional wall motion abnormalities noted. Right Ventricle Normal RV size. Normal systolic function. Atria The left and right atria are normal. No doppler evidence for ASD. Mitral Valve There is no mitral valve stenosis. Trivial mitral valve insufficiency. Tricuspid Valve There is no tricuspid stenosis. Trivial tricuspid valve insufficiency. Pulmonary artery systolic pressure is 40 mmHg. Aortic Valve Trisinus/trileaflet aortic valve. There is no aortic stenosis. No aortic valve insufficiency. Pulmonic Valve There is no pulmonic valvular stenosis. Trivial pulmonic valve insufficiency. Great Vessels Normal aortic root. Pericardium/Pleural No pericardial effusion. MMode/2D Measurements & Calculations LVIDd: 4.8 cm IVSd: 1.3 cm Ao root diam: 3.2 cm LVIDs: 3.4 cm LVPWd: 1.7 cm FS: 28.3 % LAV(MOD-bp): 55.2 ml LVAd ap4: 25.4 cm2 SV(MOD-sp4): 40.2 ml LAV(MOD-bp) Indexed: 27.1 ml/m2 LVLd ap4: 7.0 cm LAV(MOD-sp2): 56.9 ml EDV(MOD-sp4): 71.8 ml LAV(MOD-sp4): 47.1 ml EDV(sp4-el): 77.7 ml LVAs ap4: 15.6 cm2 LVLs ap4: 6.2 cm ESV(MOD-sp4): 31.6 ml ESV(sp4-el): 33.6 ml EF(MOD-sp4): 56.0 % EF(sp4-el): 56.8 % SV(sp4-el): 44.1 ml LA A4 area: 17.7 cm2 LA dimension(2D): 4.5 cm RA A4 area: 15.3 cm2 TAPSE: 2.1 cm Time Measurements MV dec time: 0.29 sec Doppler Measurements & Calculations MV E max bryson: 58.5 cm/sec Lat Peak E' Bryson: 7.6 cm/sec Med Peak E' Bryson: 4.3 cm/sec MV A max bryson: 59.6 cm/sec E/E' lat: 7.7 E/E' med: 13.7 MV E/A: 0.98 MV V2 max: 68.0 cm/sec Ao V2 max: 122.6 cm/sec MV max P.9 mmHg MV dec slope: 203.0 cm/sec2 Ao max P.0 mmHg MV V2 mean: 38.6 cm/sec Ao V2 mean: 87.7 cm/sec MV mean P.69 mmHg Ao mean P.5 mmHg MV V2 VTI: 22.6 cm Ao V2 VTI: 29.5 cm AV (velocity ratio): 0.75 LV V1 max: 103.2 cm/sec PA V2 max: 145.6 cm/sec TR max bryson: 297.5 cm/sec LV V1 max P.3 mmHg PA V2 mean: 97.3 cm/sec TR max P.4 mmHg LV V1 mean P.4 mmHg LV V1 mean: 72.0 cm/sec LV V1 VTI: 22.2 cm ECHO/Echo Complete Interpretation Summary The estimated ejection fraction is 55 %. Diastolic function is indeterminate. Trivial mitral valve insufficiency. Ordering Physician: Sandip Walker Chi Referring Physician: Sandip Walekr Chi Performed By: Ekaterina Wilson RCS
== END | disposition home or self-care (01) ==
PROVIDERS: PCP Family Medicine Geriatric Medicine; Referring Provider Family Medicine Geriatric Medicine; Visit Provider Family Medicine Geriatric Medicine
DX: R06.02 Shortness of breath (principal)
CPT/HCPCS: 93306

== ENCOUNTER → 2023-11-20 | Outpatient (CLI) | payer MEDICARE, SELFPAY ==
[2023-11-20 16:27] LABS: Absolute Lymphocyte Count 2.22 X10^3/uL (0.83-4.51); Absolute Neutrophil Count 4.8 X10^3/uL (2.0-7.7); Basophil# 0.03 X10^3/uL; Basophil% 0.4 % (0-1); Eosinophil# 0.23 X10^3/uL; Eosinophils% 2.8 % (0-5); Hematocrit 42.1 % (40-54); Hemoglobin 12.9 g/dL (13.0-16.5); Lymphocyte # 2.22 X10^3/ul (0.83-4.51); Lymphocyte % 27.5 % (19-41); Mean Corp Hgb Conc 30.6 g/dL (32-36); Mean Corpuscular Hgb 25.9 pg (27.0-32.0); Mean Corpuscular Volume 84.4 fL (80-94); Mean Platelet Vol. 10.9 fl (6.2-12.0); Monocyte# 0.81 X10^3/uL; NRBC Flagged by Analyzer 0 % (0-5); Neutrophil # 4.76 X10^3/uL (2.7-7.7); Neutrophil % 58.9 % (47-70); Platelet Count 193 K/mm3 (150-450); RBC Distribution Width CV 15.3 % (11.6-14.6); RBC Distribution Width SD 46.6 fl (35.1-43.9); Red Blood Count 4.99 M/mm3 (4.6-6.2); White Blood Count 8.1 K/mm3 (4.4-11.0)
[2023-11-20 16:53] LABS: Vitamin D,25 Hydroxy 50.1 ng/mL
[2023-11-20 17:01] LABS: ALB/GLOB Ratio 0.8 RATIO (0.9-2.4); AST(SGOT) 25 U/L (15-37); Alanine Aminotransfer ALT/SGPT 21 U/L (16-61); Albumin, Serum 3.4 g/dL (3.2-5.0); Alkaline Phosphatase 100 U/L (45-117); Anion Gap 4 (5-15); BUN 20 mg/dL (7-18); BUN/Creat Ratio 21.5 RATIO (10-20); Chloride 109 mmol/L (98-107); Cholesterol 120 mg/dL (200); Creatinine, Serum 0.93 mg/dL (0.70-1.30); EST Glomerular Filtration Rate 83 mL/min (>60); Est Glom Filt Rate - Afr Amer 100 mL/min (>60); Glucose 94 mg/dL (74-106); High Density Lipoprotein 48 mg/dL; Potassium 4.7 mmol/L (3.5-5.1); Protein, Total 7.4 g/dL (6.4-8.2); Sodium Level 139 mmol/L (136-145); Thyroid Stim Hormone (TSH) 3.24 uIU/mL (0.358-3.74); Triglycerides 73 mg/dL; Very Low Density Lipoprotein 15 mg/dL (5-40)
== END | disposition home or self-care (01) ==
LOC: LAB 15:22
PROVIDERS: PCP Family Medicine Geriatric Medicine; Visit Provider Family Medicine Geriatric Medicine
DX: I10 Essential (primary) hypertension (principal); E55.9 Vitamin D deficiency, unspecified; E78.5 Hyperlipidemia, unspecified
CPT/HCPCS: 36415; 80053; 80061; 82306; 84443; 85025

== ENCOUNTER → 2024-02-19 | Outpatient (CLI) | payer MEDICARE, SELFPAY ==
[2024-02-19 14:08] LABS: Absolute Lymphocyte Count 2.37 X10^3/uL (0.83-4.51); Absolute Neutrophil Count 4.4 X10^3/uL (2.0-7.7); Basophil# 0.03 X10^3/uL; Basophil% 0.4 % (0-1); Eosinophil# 0.29 X10^3/uL; Eosinophils% 3.7 % (0-5); Hemoglobin 14.2 g/dL (13.0-16.5); Lymphocyte # 2.37 X10^3/ul (0.83-4.51); Lymphocyte % 29.9 % (19-41); Mean Corp Hgb Conc 31.6 g/dL (32-36); Mean Corpuscular Hgb 27.5 pg (27.0-32.0); Mean Corpuscular Volume 87.2 fL (80-94); Mean Platelet Vol. 11.1 fl (6.2-12.0); Monocyte# 0.86 X10^3/uL; Monocyte% 10.8 % (0-10); NRBC Flagged by Analyzer 0 % (0-5); Neutrophil # 4.35 X10^3/uL (2.7-7.7); Neutrophil % 54.8 % (47-70); Platelet Count 175 K/mm3 (150-450); RBC Distribution Width CV 17.8 % (11.6-14.6); RBC Distribution Width SD 57.4 fl (35.1-43.9); Red Blood Count 5.16 M/mm3 (4.6-6.2); White Blood Count 7.9 K/mm3 (4.4-11.0)
[2024-02-19 14:49] LABS: ALB/GLOB Ratio 0.9 RATIO (0.9-2.4); AST(SGOT) 28 U/L (15-37); Alanine Aminotransfer ALT/SGPT 23 U/L (16-61); Albumin, Serum 3.7 g/dL (3.2-5.0); Alkaline Phosphatase 124 U/L (45-117); Anion Gap 8 (5-15); BUN 23 mg/dL (7-18); BUN/Creat Ratio 21.5 RATIO (10-20); Calcium,Total 9.6 mg/dL (8.5-10.1); Chloride 110 mmol/L (98-107); Cholesterol 132 mg/dL (200); Creatinine, Serum 1.07 mg/dL (0.70-1.30); EST Glomerular Filtration Rate 70 mL/min (>60); Est Glom Filt Rate - Afr Amer 85 mL/min (>60); Glucose 101 mg/dL (74-106); High Density Lipoprotein 49 mg/dL; Potassium 4.7 mmol/L (3.5-5.1); Protein, Total 7.7 g/dL (6.4-8.2); Sodium Level 141 mmol/L (136-145); Triglycerides 61 mg/dL; Very Low Density Lipoprotein 12 mg/dL (5-40)
[2024-02-19 15:07] LABS: Vitamin D,25 Hydroxy 70.5 ng/mL
== END | disposition home or self-care (01) ==
LOC: POLAB3 13:52
PROVIDERS: PCP Family Medicine Geriatric Medicine; Visit Provider Family Medicine Geriatric Medicine
DX: I10 Essential (primary) hypertension (principal); E55.9 Vitamin D deficiency, unspecified; E78.5 Hyperlipidemia, unspecified
CPT/HCPCS: 36415; 80053; 80061; 82306; 84443; 85025

== ENCOUNTER → 2024-05-20 | Outpatient (CLI) | payer MEDICARE, SELFPAY ==
[2024-05-20 15:17] LABS: Absolute Lymphocyte Count 2.79 X10^3/uL (0.83-4.51); Absolute Neutrophil Count 5.3 X10^3/uL (2.0-7.7); Basophil# 0.03 X10^3/uL; Basophil% 0.3 % (0-1); Eosinophil# 0.32 X10^3/uL; Eosinophils% 3.4 % (0-5); Hematocrit 45.8 % (40-54); Hemoglobin 14.7 g/dL (13.0-16.5); Lymphocyte # 2.79 X10^3/ul (0.83-4.51); Lymphocyte % 30.1 % (19-41); Mean Corp Hgb Conc 32.1 g/dL (32-36); Mean Corpuscular Hgb 28.9 pg (27.0-32.0); Mean Platelet Vol. 11.4 fl (6.2-12.0); Monocyte# 0.86 X10^3/uL; Monocyte% 9.3 % (0-10); NRBC Flagged by Analyzer 0 % (0-5); Neutrophil # 5.25 X10^3/uL (2.7-7.7); Neutrophil % 56.6 % (47-70); Platelet Count 196 K/mm3 (150-450); RBC Distribution Width CV 14.6 % (11.6-14.6); RBC Distribution Width SD 47.6 fl (35.1-43.9); Red Blood Count 5.09 M/mm3 (4.6-6.2); White Blood Count 9.3 K/mm3 (4.4-11.0)
[2024-05-20 16:00] LABS: ALB/GLOB Ratio 0.9 RATIO (0.9-2.4); AST(SGOT) 22 U/L (15-37); Alanine Aminotransfer ALT/SGPT 25 U/L (16-61); Albumin, Serum 3.5 g/dL (3.2-5.0); Alkaline Phosphatase 105 U/L (45-117); Anion Gap 6 (5-15); BUN 18 mg/dL (7-18); BUN/Creat Ratio 18.7 RATIO (10-20); Calcium,Total 9.5 mg/dL (8.5-10.1); Chloride 112 mmol/L (98-107); Cholesterol 118 mg/dL (200); Creatinine, Serum 0.96 mg/dL (0.70-1.30); EST Glomerular Filtration Rate 79 mL/min (>60); Est Glom Filt Rate - Afr Amer 96 mL/min (>60); Glucose 96 mg/dL (74-106); High Density Lipoprotein 43 mg/dL; Potassium 4.5 mmol/L (3.5-5.1); Protein, Total 7.5 g/dL (6.4-8.2); Sodium Level 143 mmol/L (136-145); Triglycerides 76 mg/dL; Very Low Density Lipoprotein 15 mg/dL (5-40)
[2024-05-20 22:55] LABS: Vitamin D,25 Hydroxy 65.9 ng/mL
== END | disposition home or self-care (01) ==
LOC: POLAB3 14:19
PROVIDERS: PCP Family Medicine Geriatric Medicine; Visit Provider Family Medicine Geriatric Medicine
DX: I10 Essential (primary) hypertension (principal); E03.9 Hypothyroidism, unspecified; E78.5 Hyperlipidemia, unspecified; E55.9 Vitamin D deficiency, unspecified
CPT/HCPCS: 36415; 80053; 80061; 82306; 84443; 85025

== ENCOUNTER → 2024-08-18 | Outpatient (CLI) | payer MEDICARE, SELFPAY ==
[2024-08-18 15:05] LABS: Absolute Lymphocyte Count 2.63 X10^3/uL (0.83-4.51); Absolute Neutrophil Count 5.3 X10^3/uL (2.0-7.7); Basophil# 0.04 X10^3/uL; Basophil% 0.4 % (0-1); Eosinophil# 0.23 X10^3/uL; Eosinophils% 2.5 % (0-5); Hematocrit 46.8 % (40-54); Hemoglobin 15.2 g/dL (13.0-16.5); Lymphocyte # 2.63 X10^3/ul (0.83-4.51); Lymphocyte % 28.8 % (19-41); Mean Corp Hgb Conc 32.5 g/dL (32-36); Mean Corpuscular Hgb 29.1 pg (27.0-32.0); Mean Corpuscular Volume 89.5 fL (80-94); Monocyte# 0.85 X10^3/uL; Monocyte% 9.3 % (0-10); NRBC Flagged by Analyzer 0 % (0-5); Neutrophil # 5.34 X10^3/uL (2.7-7.7); Neutrophil % 58.5 % (47-70); Platelet Count 187 K/mm3 (150-450); RBC Distribution Width CV 14.7 % (11.6-14.6); RBC Distribution Width SD 48.1 fl (35.1-43.9); Red Blood Count 5.23 M/mm3 (4.6-6.2); White Blood Count 9.1 K/mm3 (4.4-11.0)
[2024-08-18 18:32] LABS: ALB/GLOB Ratio 1.3 RATIO (0.9-2.4); AST(SGOT) 29 U/L (<=37); Alanine Aminotransfer ALT/SGPT 18 U/L (<=46); Albumin, Serum 4.2 g/dL (3.4-4.8); Alkaline Phosphatase 103 U/L (40-129); Anion Gap 14 (5-15); BUN 20 mg/dL (4-19); Calcium,Total 9.8 mg/dL (7.6-11.0); Carbon Dioxide 19.5 mmol/L (21.0-32.0); Chloride 108 mmol/L (98-108); Cholesterol 139 mg/dL (<=200); Creatinine, Serum 1.04 mg/dL (0.70-1.20); EST Glomerular Filtration Rate 72 (>60); Globulin 3.3 g/dL (2.2-4.2); Glucose 99 mg/dL (70-99); High Density Lipoprotein 45 mg/dL; Low Density Lipoprotein Calc. 79 mg/dL; Potassium 4.9 mmol/L (3.3-5.1); Protein, Total 7.5 g/dL (5.9-8.4); Sodium Level 141 mmol/L (133-145); Total Bilirubin 0.61 mg/dL (0.00-1.30); Triglycerides 73 mg/dL; Very Low Density Lipoprotein 15 mg/dL (5-40); cholesterol:hdl ratio screen 3.09
[2024-08-18 18:44] LABS: Vitamin D,25 Hydroxy 59.3 ng/mL (30-100)
== END | disposition home or self-care (01) ==
LOC: POLAB3 14:50
PROVIDERS: PCP Family Medicine Geriatric Medicine; Visit Provider Family Medicine Geriatric Medicine
DX: I10 Essential (primary) hypertension (principal); E78.5 Hyperlipidemia, unspecified; E55.9 Vitamin D deficiency, unspecified
CPT/HCPCS: 36415; 80053; 80061; 82306; 84443; 85025

== ENCOUNTER → 2024-11-25 | Outpatient (CLI) | payer MEDICARE, SELFPAY ==
[2024-11-25 17:16] LABS: Absolute Lymphocyte Count 2.14 X10^3/uL (0.83-4.51); Absolute Neutrophil Count 4.9 X10^3/uL (2.0-7.7); Basophil# 0.04 X10^3/uL; Basophil% 0.5 % (0-1); Eosinophil# 0.28 X10^3/uL; Eosinophils% 3.5 % (0-5); Hematocrit 45.1 % (40-54); Hemoglobin 14.6 g/dL (13.0-16.5); Lymphocyte # 2.14 X10^3/ul (0.83-4.51); Lymphocyte % 26.4 % (19-41); Mean Corp Hgb Conc 32.4 g/dL (32-36); Mean Corpuscular Hgb 29.1 pg (27.0-32.0); Mean Platelet Vol. 11.1 fl (6.2-12.0); Monocyte# 0.76 X10^3/uL; Monocyte% 9.4 % (0-10); NRBC Flagged by Analyzer 0 % (0-5); Neutrophil # 4.86 X10^3/uL (2.7-7.7); Neutrophil % 59.8 % (47-70); Platelet Count 178 K/mm3 (150-450); RBC Distribution Width CV 14.5 % (11.6-14.6); RBC Distribution Width SD 47.5 fl (35.1-43.9); Red Blood Count 5.01 M/mm3 (4.6-6.2); White Blood Count 8.1 K/mm3 (4.4-11.0)
[2024-11-25 18:14] LABS: Cholesterol 133 mg/dL (<=200); High Density Lipoprotein 41 mg/dL; Low Density Lipoprotein Calc. 81 mg/dL; Triglycerides 58 mg/dL; Very Low Density Lipoprotein 12 mg/dL (5-40); Vitamin D,25 Hydroxy 86.2 ng/mL (30-100); cholesterol:hdl ratio screen 3.26
[2024-11-25 18:24] LABS: ALB/GLOB Ratio 1.3 RATIO (0.9-2.4); AST(SGOT) 29 U/L (<=37); Alanine Aminotransfer ALT/SGPT 18 U/L (<=46); Alkaline Phosphatase 96 U/L (40-129); Anion Gap 9 (5-15); BUN 19 mg/dL (4-19); BUN/Creat Ratio 18.2 RATIO (10-20); Calcium,Total 9.6 mg/dL (7.6-11.0); Carbon Dioxide 25.1 mmol/L (21.0-32.0); Chloride 108 mmol/L (98-108); Creatinine, Serum 1.02 mg/dL (0.70-1.20); EST Glomerular Filtration Rate 73 (>60); Globulin 3.2 g/dL (2.2-4.2); Glucose 93 mg/dL (70-99); Potassium 5.4 mmol/L (3.3-5.1); Protein, Total 7.2 g/dL (5.9-8.4); Sodium Level 142 mmol/L (133-145); Total Bilirubin 0.66 mg/dL (0.00-1.30)
== END | disposition home or self-care (01) ==
LOC: LAB 16:33
PROVIDERS: PCP Family Medicine Geriatric Medicine; Referring Provider Family Medicine Geriatric Medicine; Visit Provider Family Medicine Geriatric Medicine
DX: I10 Essential (primary) hypertension (principal); E55.9 Vitamin D deficiency, unspecified; E78.5 Hyperlipidemia, unspecified
CPT/HCPCS: 36415; 80053; 80061; 82306; 84443; 85025

== ENCOUNTER → 2024-11-30 | Outpatient (CLI) | payer MEDICARE, SELFPAY ==
[2024-11-30 18:33] LABS: Anion Gap 11 (5-15); BUN 15 mg/dL (4-19); BUN/Creat Ratio 15.7 RATIO (10-20); Calcium,Total 9.3 mg/dL (7.6-11.0); Carbon Dioxide 23.7 mmol/L (21.0-32.0); Chloride 106 mmol/L (98-108); Creatinine, Serum 0.96 mg/dL (0.70-1.20); EST Glomerular Filtration Rate 79 (>60); Glucose 92 mg/dL (70-99); Potassium 4.5 mmol/L (3.3-5.1); Sodium Level 141 mmol/L (133-145)
== END | disposition home or self-care (01) ==
PROVIDERS: PCP Family Medicine Geriatric Medicine; Referring Provider Family Medicine Geriatric Medicine; Visit Provider Family Medicine Geriatric Medicine
DX: E87.6 Hypokalemia (principal)
CPT/HCPCS: 36415; 80048